=== PATIENT | female | born 1965 | race Caucasian/White ===

== ENCOUNTER 2020-08-29 10:16 | Outpatient (REF) | payer OTHER, SELFPAY ==
[2020-08-29 11:00] LABS: MANUAL DIFF FLAG NO
[2020-08-29 11:07] LABS: Basophils Percent Auto 0.4 % (0-2); Eosinophils Absolute Auto 0.2 X10*3/uL (0.0-0.4); Eosinophils Percent Auto 3.8 % (0-4); Hematocrit 41.7 % (37-47); Hemoglobin 13.5 g/dl (12.0-16.0); Imm Gran Abs Auto 0.01 X10*3/uL (0.00-0.03); Imm Gran Pct Auto 0.2 % (0.0-0.4); Lymphocytes Absolute Auto 2.1 X10*3/uL (1.2-4.9); Lymphocytes Percent Auto 40.9 % (20-40); Mean Corpuscular HGB Conc 32.4 g/dl (31.0-35.0); Mean Corpuscular Hemoglobin 28.8 pg (27.0-33.0); Mean Corpuscular Volume 88.9 fL (80-98); Mean Platelet Volume 11.1 fL (9.4-12.3); Monocytes Absolute Auto 0.5 X10*3/uL (0.1-1.2); Neutrophils Absolute Auto 2.4 X10*3/uL (2.0-8.3); Neutrophils Percent Auto 45.7 % (45-73); Platelet Count 268 X10*3/uL (160-400); Red Blood Count 4.69 X10*6/uL (4.20-5.50); Red Cell Distribution Width 14.2 % (11.0-16.0); White Blood Count 5.2 X10*3/uL (4.8-10.8)
[2020-08-29 11:52] LABS: Erythrocyte Sedimentation Rate 6 MM/HR (0-20)
[2020-08-29 11:53] LABS: Alanine Aminotransferase 24 U/L (0-31); Albumin Level 4.2 g/dL (3.5-5.0); Alkaline Phosphatase 78 U/L (39-117); Anion Gap 11 (12-20); Aspartate Amino Transferase 20 U/L (5-31); Bilirubin Total 0.4 mg/dL (0.0-1.0); Blood Urea Nitrogen 19 mg/dL (9-16); C Reactive Protein 0.27 mg/dL (< or = 0.50); Calcium 9.3 mg/dL (8.4-10.2); Carbon Dioxide 28 mmol/L (22-29); Chloride 105 mmol/L (96-108); Estimated Glomerular Filt Rate > 60; Glucose Random 95 mg/dL (60-115); Potassium 4.1 mmol/l (3.3-5.1); Sodium 140 mmol/L (135-145); Total Protein 6.8 g/dL (6.5-8.0)
== END 2020-08-29 10:17 | disposition home or self-care (01) ==
LOC: HO.LAB 10:16
PROVIDERS: PCP Internal Medicine; Visit Provider Student in an Organized Health Care Education/Training Program
DX: R76.8 Other specified abnormal immunological findings in serum (principal); M19.012 Primary osteoarthritis, left shoulder
CPT/HCPCS: 36415; 80053; 85025; 85652; 86140

== ENCOUNTER → 2020-08-30 08:57 | Outpatient (BNVA) | payer OTHER, SELFPAY | PROVIDERS: PCP Internal Medicine; Visit Provider Student in an Organized Health Care Education/Training Program | DX: Z76.89 Persons encountering health services in other specified circumstances (principal) ==

== ENCOUNTER 2023-05-10 09:06 | Outpatient (REF) | payer MEDICARE, SELFPAY ==
--- NOTE | ~2023-05-10 | XR_ITS ---
EXAMINATION: XR PELVIS CLINICAL INFORMATION: Hip pain. COMPARISON: November 11, 2017. TECHNIQUE: AP view of the pelvis. XR/XR pelvis 1-2V FINDINGS/IMPRESSION: There has been no significant radiographic change compared November 11, 2017. The patient is status post bilateral hip arthroplasty. There is no evidence of hardware fracture or loosening. No bony fracture is seen. No lytic or sclerotic bony lesion is identified. Soft tissues appear unremarkable. There are degenerative changes of the partially imaged lower lumbar spine.
--- NOTE | ~2023-05-10 | XR_ITS ---
EXAMINATION: XR KNEE AP STANDING XR KNEE, LEFT CLINICAL INFORMATION: Pain. COMPARISON: February 17, 2018. TECHNIQUE: AP bilateral standing view of the knees was obtained. Three views of the left knee. FINDINGS: The patient is status post left total knee arthroplasty, unchanged. There is no evidence of hardware fracture or loosening. No acute bony fracture or dislocation is seen. No suprapatellar effusion is noted. No lytic or sclerotic bony lesion is seen. There has been no significant radiographic change compared with February 17, 2018. The right knee appears grossly unremarkable on the single, frontal view submitted.. XR/XR knee LT 2V IMPRESSION: No significant radiographic change compared with February 17, 2018.
--- NOTE | ~2023-05-10 | XR_ITS ---
EXAMINATION: XR KNEE AP STANDING XR KNEE, LEFT CLINICAL INFORMATION: Pain. COMPARISON: February 17, 2018. TECHNIQUE: AP bilateral standing view of the knees was obtained. Three views of the left knee. FINDINGS: The patient is status post left total knee arthroplasty, unchanged. There is no evidence of hardware fracture or loosening. No acute bony fracture or dislocation is seen. No suprapatellar effusion is noted. No lytic or sclerotic bony lesion is seen. There has been no significant radiographic change compared with February 17, 2018. The right knee appears grossly unremarkable on the single, frontal view submitted.. XR/XR knee standing BI IMPRESSION: No significant radiographic change compared with February 17, 2018.
== END 2023-05-10 09:07 | disposition home or self-care (01) ==
LOC: HO.HOSX 09:06
PROVIDERS: Visit Provider Physician Assistant
DX: M76.891 Other specified enthesopathies of right lower limb, excluding foot (principal); Q66.6 Other congenital valgus deformities of feet; M25.762 Osteophyte, left knee; Z96.643 Presence of artificial hip joint, bilateral; Z96.652 Presence of left artificial knee joint
CPT/HCPCS: 72170; 73560; 73565; 99202

== ENCOUNTER 2024-11-10 08:44 | Outpatient (AMB) | payer MEDICARE, SELFPAY ==
--- NOTE | 2024-11-10 08:55 | MHC.OFFVIS ---
Vital Signs 11/10/24 08:57 Height 5 ft 2 in Weight 196 lb BMI 35.8 BP 132/72 Blood Pressure Location Lt brachial Position Sitting Pulse 76 Pulse Source Pulse Oximeter Pulse Oximetry (%) 96 Oxygen Delivery Method Room Air Intake Visit Reasons: RA Intake Note: Patient presents for follow up on RA today. Allergies No Known Allergies [No Known Allergies*] Allergy (Verified 11/10/24 08:58) HPI HPI RA: Details: History of rheumatoid arthritis. She had surgery to her left foot with stabilizers placed. She is doing well. Two week follow-up photos reviewed of foot without any signs of infection. She is nonweightbearing at this time. In day she has another follow-up with surgeon. RA is better controlled with the addition of leflunomide. She is able to put her rings on. Since being off of methotrexate for the last 2 weeks, loose stools has reduced. She was started on dicyclomine by PCP for diarrhea but has to take it 4 times a day. [facility] Surgical History Bariatric surgery status Carpal tunnel syndrome of left wrist Carpal tunnel syndrome of right wrist H/O bilateral hip replacements History of arthroscopy of left knee History of knee replacement procedure of left knee History of spinal fusion Social History (Updated 05/10/23 @ 08:12 by Cande Gurrola) Alcohol intake: current Alcohol intake frequency: a few times a week Alcohol type: hard liquor Patient Tobacco Use Status: Never used Tobacco Current occupational status: disabled Review of Systems Const All systems reviewed & are unremarkable except as noted in HPI and below Physical Exam Vital Signs: Last Vital Signs Pulse 76 11/10/24 08:57 BP 132/72 11/10/24 08:57 Pulse Ox 96 11/10/24 08:57 Oxygen Delivery Method Room Air 11/10/24 08:57 BMI result Body Mass Index 35.8 Const Other: General: Comfortable CVS: RRR Respiratory: clear to auscultation bilaterally. Good respiratory effort Skin: No lesions seen MSK: No tenderness of any joints. No synovitis. Good range of motion of upper extremity. Left foot is in a cast. She uses a scooter to ambulate. Assessment & Plan Assessment & Plan (1) Rheumatoid arthritis: Comment: Seropositive. Controlled on current regimen. Methotrexate is likely contributing to loose stools. We discussed switching methotrexate PO2 subcutaneous injection. Patient will like to think about it. Based on the photo that I side patient's 2 week follow-up post surgery, there is no signs of infection. She may resume methotrexate. She will also discuss with her surgeon. I reviewed labs that she had done 10/16/2024. She had normal creatinine with mild transaminitis. I have asked her to have labs done this week. May need to adjust methotrexate dose after lab results are back. Code(s): M06.9 - Rheumatoid arthritis, unspecified Category: Medical Qualifiers: Rheumatoid arthritis location: multiple sites Rheumatoid factor presence: with rheumatoid factor Qualified Code(s): M05.79 - Rheumatoid arthritis with rheumatoid factor of multiple sites without organ or systems involvement Plan: Continue hydroxychloroquine 200 mg daily. OCT and visual field eye exam 10/14/2025 up-to-date Continue leflunomide 20 mg daily Labs for disease and drug monitoring ordered May need to adjust methotrexate dose after lab results are back. She was previously on methotrexate 20 mg once weekly and folic acid 1 mg daily Liver ultrasound scheduled for 11/30/2024 ordered by PCP. Return to clinic in 3 months [facility] Requesting complete metabolic panel on 10/16/2024 from [facility] (2) Other supervisor fishing (current) drug therapy: Code(s): Z79.899 - Other supervisor fishing (current) drug therapy Category: Medical Plan: See above Orders: Orders Alanine Aminotransferase Today Z79.60 - [facility] (current) use of unspecified immunomodulators and immunosuppressants Erythrocyte Sedimentation Rate Today M06.9 - Rheumatoid arthritis, unspecified T Spot TB Today M06.9 - Rheumatoid arthritis, unspecified Complete Blood Count Auto Diff Today Z79.60 - correction officer supervisor (current) use of unspecified immunomodulators and immunosuppressants Creatinine Today Z79.60 - correction officer supervisor (current) use of unspecified immunomodulators and immunosuppressants Aspartate Amino Transferase Today Z79.60 - correction officer supervisor (current) use of unspecified immunomodulators and immunosuppressants C Reactive Protein Today M06.9 - Rheumatoid arthritis, unspecified Hepatitis B,C Profile Today M06.9 - Rheumatoid arthritis, unspecified Coding Level of Care Code Est Pt Level 4 (41974) Complex EM visit Add On G2211 Diagnoses Rheumatoid arthritis involving multiple sites with positive rheumatoid factor M05.79 Rheumatoid arthritis location: multiple sites Rheumatoid factor presence: with rheumatoid factor Other supervisor fishing (current) drug therapy Z79.899
[2024-11-10 08:57] VITALS: BP 132/72; PULSE 76; O2SAT 96; BMI 35.8
== END 2024-11-10 09:51 | disposition home or self-care (01) ==
PROVIDERS: PCP Family Medicine; Visit Provider Internal Medicine Rheumatology
DX: M05.79 Rheumatoid arthritis with rheumatoid factor of multiple sites without organ or systems involvement (principal); Z79.899 Other long term (current) drug therapy
CPT/HCPCS: 99214; G2211

== ENCOUNTER → 2024-11-10 08:44 | Outpatient (BNVA) | payer MEDICARE, SELFPAY | PROVIDERS: PCP Family Medicine; Visit Provider Internal Medicine Rheumatology | DX: M05.79 Rheumatoid arthritis with rheumatoid factor of multiple sites without organ or systems involvement (principal); Z79.899 Other long term (current) drug therapy | CPT/HCPCS: 99212 ==

== ENCOUNTER 2024-11-13 10:58 | Outpatient (REF) | payer MEDICARE, SELFPAY ==
[2024-11-13 11:12] LABS: MANUAL DIFF FLAG NO
[2024-11-13 12:23] LABS: Basophils Absolute Auto 0.1 X10*3/uL (0.0-0.2); Basophils Percent Auto 0.9 % (0-2); Eosinophils Absolute Auto 0.2 X10*3/uL (0.0-0.4); Eosinophils Percent Auto 3.9 % (0-4); Hematocrit 41.3 % (37.0-47.0); Hemoglobin 13.3 g/dl (12.0-16.0); Imm Gran Abs Auto 0.01 X10*3/uL (0.00-0.03); Imm Gran Pct Auto 0.2 % (0.0-0.4); Lymphocytes Absolute Auto 1.9 X10*3/uL (1.2-4.9); Lymphocytes Percent Auto 35.2 % (20-40); Mean Corpuscular HGB Conc 32.2 g/dl (31.0-35.0); Mean Corpuscular Hemoglobin 28.1 pg (27.0-33.0); Mean Corpuscular Volume 87.1 fL (80.0-98.0); Mean Platelet Volume 11.9 fL (9.4-12.3); Monocytes Absolute Auto 0.6 X10*3/uL (0.1-1.2); Monocytes Percent Auto 10.8 % (2-11); Neutrophils Absolute Auto 2.6 x10*3/uL (2.0-8.3); Platelet Count 253 X10*3/uL (160-400); Red Blood Count 4.74 X10*6/uL (4.20-5.50); Red Cell Distribution Width 14.6 % (11.0-16.0); White Blood Count 5.4 X10*3/uL (4.8-10.8)
[2024-11-13 13:00] LABS: Erythrocyte Sedimentation Rate 3 MM/HR (0-20)
[2024-11-13 13:16] LABS: Aspartate Amino Transferase 25 U/L (5-31); Estimated Glomerular Filt Rate > 60
[2024-11-13 13:29] LABS: Alanine Aminotransferase 33 U/L (0-31)
[2024-11-14 04:48] LABS: HBS Num1 1.13 mIU/mL (0-7.99); HBsAGNum1 0.37 S/CO (0.00-0.99); Hepatitis B Core Antibody Nonreactive (Nonreactive); Hepatitis B Surface Antigen Negative (Negative); ~HepC Num1 0.14 S/CO (0.00-0.79); ~Hepatitis B Surface Antibody NONREACTIVE (Nonreactive); ~Hepatitis C Antibody Nonreactive (Nonreactive)
[2024-11-16 13:12] LABS: TS Negative Control Passed; TS Panel A 0; TS Panel B 0; TS Positive Control Passed; TSpotTB Negative (Negative)
== END 2024-11-13 10:59 | disposition home or self-care (01) ==
LOC: HO.LAB 10:58
PROVIDERS: PCP Family Medicine; Visit Provider Internal Medicine Rheumatology
DX: M06.9 Rheumatoid arthritis, unspecified (principal); Z79.60 Long term (current) use of unspecified immunomodulators and immunosuppressants
CPT/HCPCS: 36415; 82565; 84450; 84460; 85025; 85652; 86140; 86481; 86704; 86706; 86803; 87340

== ENCOUNTER 2024-12-17 16:14 | Outpatient (REF) | payer MEDICARE, SELFPAY ==
[2024-12-17 17:38] LABS: Alanine Aminotransferase 29 U/L (0-31); Aspartate Amino Transferase 27 U/L (5-31)
--- OUTSIDE RECORDS SUMMARY | 2024-12-17 18:55 | XMS_ITS | Continuity of Care Document ---
Author Organization [place] - [facility] [place] [facility] [address] Floor Address [address] [place] [address] Care Team Providers Care Special Delivery Clerk Name Role Phone NENA RODRIGUEZ Primary Care Provider [phone] Assessment Encounter Date Assessment Date Assessment LastModified by Organization Details LastModified Time 12/04/2024 12/04/2024 CHIEF COMPLAINT: Postop left foot HISTORY OF PRESENT ILLNESS: Delia is a very pleasant 59-year-old woman who is 6 weeks status post left first and second TMT realignment arthrodeses and calcaneal bone graft augmentation for treatment of midfoot arthritis, cavus foot deformity and metatarsus adductus. She is doing very well and has no pain. She reports some mild numbness about her forefoot that has been improving since the surgery. She has been nonweightbearing in a short-leg cast. She denies any fevers, chills or paresthesias. She is happy with her progress thus far. Past family, medical, social history and review of systems has been reviewed and is located in the patient? s chart. PHYSICAL EXAM: Musculoskeletal: With cast removed, her incisions are well-healed. Steri-Strips were removed. There is mild swelling without infectious change. There is no tenderness about her first and second TMT joints. There is mildly decreased sensation about the dorsal forefoot distal to her dorsal midfoot incision. She is otherwise distally neurovascularly intact. Her TMT joints are stable and there is no pain with TMT piano blue testing. X-RAYS: Three standing views of the left foot were ordered, obtained and reviewed by me today at [facility], demonstrating interval healing of her first and second TMT arthrodeses with well aligned midfoot and well-positioned intact hardware. IMPRESSION: 6 weeks postop, doing well PLAN: She is doing very well at this time. She is transitioned today to a tall CAM boot in which she may begin to weight-bear as tolerated. I would like her to wear the boot when walking for the next 6 weeks. She may remove the boot for sleep, hygiene and to work on range of motion of her ankle, hindfoot and MTP joint. She measured this into a supportive shoe in 6 weeks. She will follow-up in 8 weeks for reevaluation and repeat x-rays to assess alignment and healing. All questions were answered. She understands and agrees with this plan. The patient is ambulatory, but has weakness and/or instability of their extremity which requires stabilization from this semi-rigid/rigid orthosis to improve their function. Verbal and written instructions for the use and application of this item were given. Patient was instructed that should the brace result in increased pain, decreased sensation, increased swelling or an overall worsening of their medical condition, to please contact our office immediately. Not available 12/04/2024 10:37:02 Plan of Treatment Reminders Order Date Submit Date Provider Last Modified By Organization Details Last Modified Time Details Appointments RECHECK 15 2024 10:30A M Regine Bernal PA-C Not available Not available Not available Lab None recorded . Referral None recorded . Procedures None recorded . Surgeries None recorded . Imaging XR, foot, 3 or more view - RM 109 -- post op 3V FOOT WB-- pt in cast room [address] [facility], [address], [facility] [address], [place], [address], 12/16/2024 08:20:06 Medication Orders None recorded . Patient TargetsNo targets recorded. Patient Instructions Encounter Date Encounter Id Patient Instructions Last Modified By Organization Details Last Modified Time 12/04/[id number] cast removal* - rm 109-- cast off then xray Not available 12/04/2024 10:45:06 Reason for Referral None Reported. Results Created Date Observation Date Name Description Value Unit Range Abnormal Flag Note LastModifiedBy Organization Detail LastModifiedTime 12/04/19 25 12/04/2024 XR, foot, 3 or more view [email or web address] ?Encry pted=s hAaTro YD8dLq bEUv6g %2BXZw aYqtaq 0bqfl% 2Fg9IQ a4ajBk vP9nXo QUaueC m3YtLR FvZlgJ JJ8mAn HZtai3 [id number] AC0Kqb 3%2BAU qqmKiQ trMwF INTERFACE [facility] [address], [place], [address], 12/04/2024 10:15:03 12/04/19 25 12/04/2024 XR, foot, 3 or more view [email or web address]:/ [email or web address] ?Encry pted=s hAaTro YD8dLq bEUv6g %2BXZw aYqtaq 0bqfl% 2Fg9IQ a4ajBk vP9nXo QUaueC m3YtLR FvZl [place] HZtai3 [id number] AC0Kqb 3%2BAU qqmKiQ trMwF INTERFACE [facility] [address] [facility] [address], [place], [address], 12/04/2024 10:15:05 Result Notes None recorded. Problems Name Problem SNOMED Code Status Onset Date Resolution Date Notes Provider Name and Address Organization Details Recorded Time Localized, primary osteoarthriti s of the shoulder region [id number] Active 2020 Status : 'A'; Not Available [facility] 4 10:55:09 Problem Notes None recorded. Procedures Surgical History Date Name Laterality Status Provider Name and Address Organization Details Recorded Time 4 Cast_Short Leg_11+ completed [facility] 11/16/2024 13:50:13 4 Cast Removal completed [facility] 11/16/2024 13:48:54 Imaging Results None recorded. Procedure Notes None recorded. Medical Equipment None Reported. Allergies No known drug allergies Medications Name Sig Start Date Stop Date Status Note LastModified by Organization Details LastModified Time Ecotrin 325 mg tablet,ente yi coated Take 1 tablet every day by oral route for 30 days. 12/04 completed Not Available Not Available Not Available Tylenol Extra Strength 500 mg tablet Take 2 tablets every 8 hours by oral route for 15 days. 12/04 completed Not Available Not Available Not Available oxycodone 5 mg tablet Take 1 tablet every 4-6 hours by oral route as needed for 5 days. 12/04 completed Not Available Not Available Not Available methotrexat e active Not Available Not Available Not Available hydrochloro thiazide active Not Available Not Available Not Available hydroxychlo roquine active Not Available Not Available Not Available gabapentin active Not Available Not Av ailable Not Available leflunomide active Not Available Not A vailable Not Available Celebrex active Not Available Not Avai lable Not Available oxycodone HCl-oxycodo ne-ASA three times a dayDO NOT DRIVE WHILE TAKING THIS MEDICATIO N 12/04 completed Statu s: 'Curr ent'; Not Available Not Available Not Available Vitamin D3 125 mcg (5,000 unit) tablet Take 1 tablet every day by oral route for 30 days. 12/04 completed Not Available Not Available Not Available Vitals Date Recorded Body height Body mass index (BMI) Body weight Provider Name and Address Organization Details Last Updated DateTime 12/04/2024 157.48 cm 36.2 kg/m2 80852.29 g KECIA Tomas [place] - [place] [facility] 12/04/2024 10:01:55 Social History None recorded. Functional Status None recorded. Mental Status None recorded. Family History Nothing Reported. Medical History Condition Response Nerve Disorders Y Kidney/Bladder Problems Y Arthritis Y Hypertension Y Gynecological HistoryNo gynecological history recorded. Obstetrics History GPAL:G 0 P 0 0 0 0 Past Encounters Encounter ID Performer Location Encounter Start Date Encounter Closed Date Diagnosis/Indication Diagnosis SNOMED-CT Code Diagnosis ICD10 Code Diagnosis Note [id number] JAYLENE Braun [address] [place] [address] 11/05/2024 10:41:14 11/26/2024 17:40:16 Postoperative visit [id number] Z48.89 [id number] MD [facility] B[facility]re[facility] 1[address] [place] [address] 11/16/2024 13:19:34 11/16/2024 13:51:19 Surgical follow-up [id number] Z48.89 [id number] Ramy Alfonso MD [place] [facility] [address] [place] [address] 12/04/2024 09:48:12 12/16/2024 08:20:06 Pain in left foot 6257245943 35501 M79.672 Postoperative visit 1836 87321 Z48.89 Health Concerns Section Related Observation LastModified by Organization Detai ls LastModified Time None Recorded Concern Status LastModified by Organization Details LastModified Time None Recorded Payers Encounter Date Sequence Insurance Name Policy Number Policy [place] Covered Member ID [employer] Member ID Guarantor Name 12/04/2024 1 [place] [employer] Delia Baldwin [id number] Delia Baldwin OBGyn Episode No OBEpisode recorded.
== END 2024-12-17 16:15 | disposition home or self-care (01) ==
LOC: HO.LAB 16:14
PROVIDERS: PCP Family Medicine; Visit Provider Internal Medicine Rheumatology
DX: Z79.899 Other long term (current) drug therapy (principal)
CPT/HCPCS: 36415; 84450; 84460

== ENCOUNTER 2025-02-09 09:17 | Outpatient (REF) | payer MEDICARE, SELFPAY ==
[2025-02-09 18:46] LABS: MANUAL DIFF FLAG NO
[2025-02-09 19:09] LABS: Basophils Absolute Auto 0.1 X10*3/uL (0.0-0.2); Basophils Percent Auto 1.1 % (0-2); Eosinophils Absolute Auto 0.1 X10*3/uL (0.0-0.4); Hematocrit 43.3 % (37.0-47.0); Hemoglobin 13.9 g/dl (12.0-16.0); Imm Gran Abs Auto 0.01 X10*3/uL (0.00-0.03); Imm Gran Pct Auto 0.2 % (0.0-0.4); Lymphocytes Absolute Auto 1.8 X10*3/uL (1.2-4.9); Lymphocytes Percent Auto 37.4 % (20-40); Mean Corpuscular HGB Conc 32.1 g/dl (31.0-35.0); Mean Corpuscular Volume 87.3 fL (80.0-98.0); Mean Platelet Volume 11.3 fL (9.4-12.3); Monocytes Absolute Auto 0.5 X10*3/uL (0.1-1.2); Neutrophils Absolute Auto 2.3 x10*3/uL (2.0-8.3); Neutrophils Percent Auto 48.3 % (45-73); Platelet Count 274 X10*3/uL (160-400); Red Blood Count 4.96 X10*6/uL (4.20-5.50); Red Cell Distribution Width 15.4 % (11.0-16.0); White Blood Count 4.7 X10*3/uL (4.8-10.8)
[2025-02-09 19:17] LABS: Alanine Aminotransferase 27 U/L (0-31); Aspartate Amino Transferase 29 U/L (5-31); C Reactive Protein 0.18 mg/dL (< or = 0.50); Estimated Glomerular Filt Rate > 60
[2025-02-09 19:58] LABS: Erythrocyte Sedimentation Rate 3 MM/HR (0-20)
== END 2025-02-09 09:18 | disposition home or self-care (01) ==
LOC: HO.HKASLDS 09:17
PROVIDERS: Visit Provider Internal Medicine Rheumatology
DX: M05.9 Rheumatoid arthritis with rheumatoid factor, unspecified (principal); Z79.60 Long term (current) use of unspecified immunomodulators and immunosuppressants; Z79.899 Other long term (current) drug therapy
CPT/HCPCS: 36415; 82565; 84450; 84460; 85025; 85652; 86140

== ENCOUNTER 2025-02-11 09:41 | Outpatient (AMB) | payer MEDICARE, SELFPAY ==
--- NOTE | 2025-02-04 12:21 | A.OFFVIS_ITS ---
Intake Visit Reasons: 3 mo follow up Allergies No Known Allergies [No Known Allergies*] Allergy (Verified 11/10/24 08:58) HPI HPI 3 mo follow up: Details: Patient was not seen today. NO appointment today. Document created in error. [facility] Surgical History Bariatric surgery status Carpal tunnel syndrome of left wrist Carpal tunnel syndrome of right wrist H/O bilateral hip replacements History of arthroscopy of left knee History of knee replacement procedure of left knee History of spinal fusion Social History (Updated 05/10/23 @ 08:12 by Cande Gurrola) Alcohol intake: current Alcohol intake frequency: a few times a week Alcohol type: hard liquor Patient Tobacco Use Status: Never used Tobacco Current occupational status: disabled Assessment & Plan Assessment & Plan (1) Other penitentiary (current) drug therapy: Code(s): Z79.899 - Other emergency management program specialist (current) drug therapy Category: Medical Plan . Coding Level of Care Code Left Without Being Seen Diagnoses Other penitentiary (current) drug therapy Z79.899
--- NOTE | 2025-02-11 10:00 | A.OFFVIS_ITS ---
Vital Signs 02/11/25 10:02 Height 5 ft 2 in Weight 189 lb 9.561 oz BMI 34.7 BP 130/80 Blood Pressure Location Rt brachial Position Sitting Intake Visit Reasons: 3 mo follow up Intake Note: Patient presents for follow up on labs. Allergies No Known Allergies [No Known Allergies*] Allergy (Verified 02/11/25 10:03) HPI HPI 3 mo follow up: Details: She feels well. Her right hand was swollen recently, resolved. She has been experiencing increased pain and weakness in her right knee that occurred 2 days after surgery on her left foot when she walked up and downstairs to go to in an appointment. She will be seeing orthopedic surgeon Dr. Anand for eval. No recent infections. [facility] Medical History (Updated 02/11/25 @ 10:35 by Antonino Linn MD) History of reverse total replacement of both shoulders Surgical History (Updated 02/11/25 @ 10:09 by Oriana Mills [facility]) S/P foot surgery, left H/O bilateral hip replacements History of knee replacement procedure of left knee Bariatric surgery status History of spinal fusion Carpal tunnel syndrome of right wrist Carpal tunnel syndrome of left wrist History of arthroscopy of left knee Social History (Updated 05/10/23 @ 08:12 by Cande Gurrola) Alcohol intake: current Alcohol intake frequency: a few times a week Alcohol type: hard liquor Patient Tobacco Use Status: Never used Tobacco Current occupational status: disabled Review of Systems Const All systems reviewed & are unremarkable except as noted in HPI and below Physical Exam Vital Signs: Last Vital Signs BP 130/80 02/11/25 10:02 BMI result Body Mass Index 34.7 Const Other: General: Comfortable CVS: RRR Respiratory: clear to auscultation bilaterally. Good respiratory effort Skin: No lesions seen MSK: No tenderness of any joints. Left 2nd MCP chronic synovial thickening present without tenderness. Shoulder abduction 160 degrees bilateral. Good internal external rotation of bilateral shoulders. Normal range of motion of elbows. Normal range of motion of lower extremities. Assessment & Plan Assessment & Plan (1) Rheumatoid arthritis: Comment: Controlled on current regimen. She has slight synovial thickening left 2nd MCP, which I will monitor. She had mild transaminitis on blood work from September and 11/13/2024. Resolved with lower dose of methotrexate. Rheumatology history: Seropositive (RF 19). MTX 09/2022-. She has been on HCQ. Methotrexate is contributing to loose stools but tolerable. Code(s): M06.9 - Rheumatoid arthritis, unspecified Category: Medical Qualifiers: Rheumatoid arthritis location: multiple sites Rheumatoid factor presence: with rheumatoid factor Qualified Code(s): M05.79 - Rheumatoid arthritis with rheumatoid factor of multiple sites without organ or systems involvement Plan: Continue hydroxychloroquine 400 mg daily. OCT and visual field eye exam 10/14/2025 up-to-date Continue leflunomide 20 mg daily Continue methotrexate 17.5 mg once weekly Continue folic acid 1 mg daily Requesting liver ultrasound report from 12/14/2024 Return to clinic in 3 months (2) Other terminal system operator (current) drug therapy: Code(s): Z79.899 - Other terminal system operator (current) drug therapy Category: Medical Plan: See above Orders: Orders Alanine Aminotransferase 02/09/25 Z79.60 - terminal worker (current) use of uns pecified immunomodulators and immunosuppressants Aspartate Amino Transferase 02/09/25 Z79.60 - retirement (current) use of unspecified immunomodulators and immunosuppressants Erythrocyte Sedimentation Rate 02/09/25 M05.9 - Rheumatoid arthritis with rheumatoid factor, unspecified, Z79.899 - Other terminal system operator (current) drug therapy C Reactive Protein 02/09/25 M05.9 - Rheumatoid arthritis with rheumatoid factor, unspecified, Z79.899 - Other penitentiary (current) drug therapy Complete Blood Count Auto Diff 02/09/25 Z79.60 - retirement (current) use of unspecified immunomodulators and immunosuppressants Creatinine 02/09/25 Z79.60 - terminal worker (current) use of unspecified immunomodulators and immunosuppressants Medications: Changed From leflunomide 20 mg PO DAILY 30 tabs 2RF To leflunomide 20 mg PO DAILY 90 days 90 tabs 0RF From methotrexate sodium 17.5 mg (7 x 2.5 mg) PO QWEEK 28 tabs 2RF To methotrexate sodium 17.5 mg (7 x 2.5 mg) PO QWEEK 12 weeks 84 tabs 0RF From hydroxychloroquine 200 mg PO DAILY To hydroxychloroquine 400 mg (2 x 200 mg) PO DAILY 90 days 180 tabs 1RF Coding Level of Care Code Est Pt Level 4 (41737) Complex EM visit Add On G2211 Diagnoses Rheumatoid arthritis involving multiple sites with positive rheumatoid factor M05.79 Rheumatoid arthritis location: multiple sites Rheumatoid factor presence: with rheumatoid factor Other terminal system operator (current) drug therapy Z79.899
[2025-02-11 10:02] VITALS: BP 130/80; BMI 34.7
== END 2025-02-11 10:32 | disposition home or self-care (01) ==
LOC: HO.RHES 09:41
PROVIDERS: PCP Family Medicine; Visit Provider Internal Medicine Rheumatology
DX: M05.79 Rheumatoid arthritis with rheumatoid factor of multiple sites without organ or systems involvement (principal); Z79.899 Other long term (current) drug therapy
CPT/HCPCS: 99214; G2211

== ENCOUNTER → 2025-02-11 09:41 | Outpatient (BNVA) | payer MEDICARE, SELFPAY | PROVIDERS: PCP Family Medicine; Visit Provider Internal Medicine Rheumatology | DX: M05.79 Rheumatoid arthritis with rheumatoid factor of multiple sites without organ or systems involvement (principal); Z79.899 Other long term (current) drug therapy; Z79.60 Long term (current) use of unspecified immunomodulators and immunosuppressants | CPT/HCPCS: 99212 ==

== ENCOUNTER 2025-02-15 08:26 | Outpatient (REF) | payer MEDICARE, SELFPAY ==
--- NOTE | ~2025-02-15 | XR_ITS ---
CLINICAL HISTORY: M25.569 - Pain in unspecified knee Two views of the right knee. AP views of the bilateral knees. Weight bearing views were obtained. COMPARISON: None FINDINGS: Right knee: Small suprapatellar joint effusion. Small tricompartment osteophytes. Mild medial joint space narrowing. Visualized portions of the distal right femur, patella, and proximal tibia and fibula appear intact. Fabella present. Limited AP view of the left knee: Left total knee arthroplasty partially visualized. No evidence of hardware complication. Visualized portions of the distal left femur and proximal tibia and fibula appear intact. IMPRESSION: 1. Small right suprapatellar joint effusion. 2. Mild tricompartment degenerative changes of the right knee. This document has been electronically signed by: Je Deleon MD on 02/16/2025 15:49:54
== END 2025-02-15 08:27 | disposition home or self-care (01) ==
LOC: HO.HOSX 08:26
PROVIDERS: Visit Provider Physician Assistant
DX: M25.561 Pain in right knee (principal); M23.91 Unspecified internal derangement of right knee
CPT/HCPCS: 20610; 73562; 99212; J1010; J2003

== ENCOUNTER 2025-02-15 10:19 | Outpatient (AMB) | payer MEDICARE, SELFPAY ==
--- NOTE | 2025-02-15 10:54 | A.OFFVIS_ITS ---
Vital Signs 02/15/25 10:59 Height 5 ft 2 in Weight 189 lb BMI 34.6 Intake Visit Reasons: Newprob-RT knee pain-interested in cortisone inj. Intake Note: Delia is a 59 year old female who presents today for a evaluation of her right knee pain. Patient reports on going pain for a couple months. Hx of left TKA. She states that she twisted her knee 4 - 5 months ago. Hx of cortisone injection with relief. Patient states her pain is on the lateral and medial aspect of the knee. She has tried and failed Tylenol, NSIADs and Ice with no relief. Patient is interested in a knee injection. Allergies No Known Allergies [No Known Allergies*] Allergy (Verified 02/15/25 10:57) HPI HPI Newprob-RT knee pain-interested in cortisone inj.: Details: Ms. Baldwin is a 59-year-old female who presents to the office today for evaluation of right knee pain. Reports that her knee pain has been lasting the past 4-5 months after she twisted and is gradually getting worse. She reports that the majority of her pain is located around the kneecap but deep seated within the joint. She has tried and failed Tylenol and ice with no relief. She is interested in cortisone injection today as this has provided her with relief in the past. [facility] Medical History (Updated 02/15/25 @ 11:42 by Feli Esteves PA-C) History of reverse total replacement of both shoulders Surgical History (Updated 02/11/25 @ 10:09 by Oriana Mills [facility]) S/P foot surgery, left H/O bilateral hip replacements History of knee replacement procedure of left knee Bariatric surgery status History of spinal fusion Carpal tunnel syndrome of right wrist Carpal tunnel syndrome of left wrist History of arthroscopy of left knee Social History Alcohol intake: current Alcohol intake frequency: a few times a week Alcohol type: hard liquor Patient Tobacco Use Status: Never used Tobacco Current occupational status: disabled Review of Systems Const All systems reviewed & are unremarkable except as noted in HPI and below Physical Exam Vital Signs: BMI result Body Mass Index 34.6 Const General: cooperative, healthy appearing and no acute distress Resp Effort & Inspection: normal respiratory effort and able to speak in complete sentences Cardio Rate: regular rate Peripheral pulses: Peripheral pulses 2+ throughout Skin Lesions: no lesions Rashes: no rashes Extrem Other: Right knee normal to inspection no ecchymosis erythema or joint effusion. Range of motion 0-120. NVI. Office Procedures AMB Joint Injection/Aspiration Joint Injection/Aspiration Primary Site: right knee Prep: site was prepped using aseptic technique, ethochloride spray was applied and injection warnings given Injected: 80 mg of, DepoMedrol and with 8 mL of (8cc 2% plain lido ) Approach Used: anterolateral Procedure: The patient tolerated the procedure well, but had some pain with the injection and there was some relief with the local anesthesia Coding - Large joint Procedure code (CPT) selection complete Assessment & Plan Assessment & Plan (1) Internal derangement of right knee: Code(s): M23.91 - Unspecified internal derangement of right knee Category: Medical Plan Ms. Baldwin is a 5-year-old female who presents to the office today for evaluation of right knee pain. Reports that her knee pain has been lasting the past 4-5 months after she twisted and is gradually getting worse. She reports that the majority of her pain is located around the kneecap but deep seated within the joint. She has tried and failed Tylenol and ice with no relief. She is interested in cortisone injection today as this has provided her with relief in the past. The patient was offered a cortisone injection in the right knee with 80 mg of DepoMedrol. The patient was explained the risks, benefits, and alternatives to receiving this injection. After receiving consent for the injection, the patient had the procedure done while in the office today. The patient tolerated the procedure well with no complications. Follow-up will be p.r.n., or sooner if needed X-rays of the right knee which were obtained while in the office today and were reviewed by me, Feli Esteves PA-C, revealed no acute fracture dislocation. Orders: Orders XR knee RT 3V Today M25.569 - Pain in unspecified knee XR knee LT 1V Today M25.569 - Pain in unspecified knee Coding Level of Care Code Est Pt Level 3 (20905) Diagnoses Internal derangement of right knee M23.91 CPT Codes Coding - Large joint: 78059 - Large joint ([id number])
[2025-02-15 10:59] VITALS: BMI 34.6
== END 2025-02-15 11:16 | disposition home or self-care (01) ==
LOC: HO.HOS 10:20
PROVIDERS: PCP Family Medicine; Visit Provider Physician Assistant
DX: M23.91 Unspecified internal derangement of right knee (principal)
CPT/HCPCS: 20610; 99213

== ENCOUNTER → 2025-02-15 10:30 | Outpatient (BNV) | payer MEDICARE, SELFPAY | PROVIDERS: Visit Provider Radiology Diagnostic Radiology | DX: M25.561 Pain in right knee (principal) | CPT/HCPCS: 73562 ==

== ENCOUNTER 2025-05-13 15:50 | Outpatient (REF) | payer MEDICARE, SELFPAY ==
--- OUTSIDE RECORDS SUMMARY | 2025-05-13 16:51 | XMS_ITS | Data Portability ---
Author Organization [facility], [facility] Address [address] [place] [address] Care Team Providers Care Stockroom Clerk Name Role Phone NENA RODRIGUEZ Primary Care Provider [phone] Assessment Encounter Date Assessment Date Assessment LastModified [...] been reviewed and is located in the patient s chart. PHYSICAL EXAM: Musculoskeletal: With cast [...] obtained and reviewed by me today at [facility], demonstrating interval healing of her first and [...] Modified Time Details Appointments RECHECK 15 2024 02:30P Flakito Bernal PA-C Not available Not available Not available Lab None recorded . Referral None recorded . Procedures None recorded . Surgeries None recorded . Imaging XR, foot, 3 or more view - rm# 104 3v lt foot wb 2024 025 [email or web address] [facility], [address], [address], [place], [address], 05/07/2025 12:23:14 CT, foot, w/o contrast - Left foot eval 1st and 2nd TMT fusions 2024 025 LAZARUS [facility], [address], [address], [place], [address], 05/09/2025 21:08:03 XR, foot, 3 or more view 2024 025 [email or web address] [facility], [address], [address], [place], [address], 02/08/2025 10:25:51 XR, foot, 3 or more view - RM 109 -- post op 3V FOOT WB-- pt in cast room 2024 025 [email or web address] [facility], [address] [facility] [address], [facility] [address], [address], 12/16/2024 08:20:06 Medication Orders compound ed medicati on 2024 025 [facility], [address] [place] [address], [address], [place], [address], 01/27/2025 13:11:21 Patient TargetsNo targets recorded. Patient Instructions Encounter Date Encounter Id Patient Instructions Last Modified By Organization Details Last Modified Time 12/04/[id number] cast removal* - rm 109-- cast off then xray Not available 12/04/2024 10:45:06 Reason for Referral None Reported. Results Created Date Observation Date Name Description Value Unit Range Abnormal Flag Note LastModifiedBy Organization Detail LastModifiedTime 12/04/1912/04/2024 XR, foot, 3 or more view http:/ [email or web address] ?Encry pted=s hAaTro YD8dLq bEUv6g %2BXZw aYqtaq 0bqfl% 2Fg9IQ a4ajBk vP9nXo QUaueC m3YtLR FvZlgJ JJ8mAn HZtai3 6d7283 AC0Kqb 3%2BAU qqmKiQ trMwF INTERFACE [facility] [address] [facility] [address], [place], [address], 12/04/2024 10:15:03 12/04/1912/04/2024 XR, foot, 3 or more view http:/ [email or web address] ?Encry pted=s hAaTro YD8dLq bEUv6g %2BXZw aYqtaq 0bqfl% 2Fg9IQ a4ajBk vP9nXo QUaueC m3YtLR FvZlgJ JJ8mAn HZtai3 6w6389 AC0Kqb 3%2BAU qqmKiQ trMwF INTERFACE [facility] [address] [address], [place], [address], 12/04/2024 10:15:05 01/27/20 25 01/26/2025 XR, foot, 3 or more view [email or web address]:/ [email or web address] ?Encry pted=s hAaTro YD8dLq bEUv6g %2BXZw aYqtaq 0bqfl% 2Fg9IQ a4ajBk vP9nXo QUaueC m3YtLR FvZlJ [address] 9p8149 AC0Kqb XqFVKS mKiQtr MwF INTERFACE [facility] [address], [address], 01/26/2025 11:07:07 01/27/20 25 01/26/2025 XR, foot, 3 or more view [email or web address]:/ [email or web address] ?Encry pted=s hAaTro YD8dLq bEUv6g %2BXZw aYqtaq 0bqfl% 2Fg9IQ a4ajBk vP9nXo QUaueC m3YtLR FvZlgJ [facility] HZtai3 2f8753 AC0Kqb XqFVKS mKiQtr MwF INTERFACE [facility] [address] [address], [place], [address], 01/26/2025 11:07:09 05/03/20 25 05/03/2025 XR, foot, 3 or more view http:/ [email or web address] ?Encry pted=s hAaTro YD8dLq bEUv6g %2BXZw aYqtaq 0bqfl% 2Fg9IQ a4ajBk vP9nXo QUaueC m3YtLR FvZlgJ JJBanner HZtai3 3d1373 AC0Kla HyBU6q iKiQtr MwF INTERFACE [facility] [address] [facility] [address], [place], [address], 05/03/2025 10:09:25 05/03/20 25 05/03/2025 XR, foot, 3 or more view http:/ [email or web address] ?Encry pted=s hAaTro YD8dLq bEUv6g %2BXZw aYqtaq 0bqfl% 2Fg9IQ a4ajBk vP9nXo QUaueC m3YtLR FvZlgJ JJ8mAn HZtai3 5e7150 AC0Kla HyBU6q iKiQtr MwF INTERFACE [facility] [address] [facility] [address], [place], [address], 05/03/2025 10:09:27 05/09/20 25 05/07/2025 CT, foot, w/o contr ast No observ ation record ed. [email or web address] [facility] [address] [facility] [address], [place], [address], 05/10/2025 07:28:27 Result Notes Documentation Provider Name and Address Organization Details Recorded Time Xr, Foot, 3 Or More View : [email or web address] Encrypted=ijUxZhnBD0xNgaE Uv6g%5WIKhpWukrm4yecc%2Fg 7ONs5kpFynK0jLyNQmtlQw7Qm SCHeScjUFK4tUiOBdmh28d882 7VT1Jce3%2BAUqqmKiQtrMwF Not Available [facility] 12/04/2024 10:1 5:04 Xr, Foot, 3 Or More View : [email or web address] Encrypted=rgFvHgwPF8oAozS Uv6g%0KNOwyOvddb7qsyi%2Fg 8KOv5ynAcdP1pOfWEzjvXv4Fk QKBiJejSIQ3lXvGLvhx13m142 5GF8Bev5%2BAUqqmKiQtrMwF Not Available [facility] 12/04/2024 10:1 5:06 Xr, Foot, 3 Or More View : [email or web address] Encrypted=evYzVtwPO6wDbrM Uv6g%4GEXilToqxu7slul%2Fg 5GCm0vjJvlH2hPtNOjlwKq4Ph VANeYxiARD4rLjWMeqe36y265 7NK5AsaIuAEPQiNrRtbJfF Not Available [facility] 01/26/2025 11:07: 08 Xr, Foot, 3 Or More View : [email or web address] Encrypted=twTwZenYS6oCmyZ Uv6g%4OMJkgSvzfo1ueki%2Fg 3WUk6noYuiN7nWxQWxxpNh9No QBUmNzyLJO0nTdFGywu22y500 8BR4VsxNjDULWiWdMtuIbQ Not Available [facility] 01/26/2025 11:07: 10 Xr, Foot, 3 Or More View : [email or web address] Encrypted=vmLmUtsED9iKifI Uv6g%5WOXglFtkeg8kxbd%2Fg 5YCu0tgPydX4xKgHEhguIg6Bu DHQxRzyQOW5vAdZYbfy97l589 8RQ2GxdEsJA6frErHtxSyB Not Available [facility] 05/03/2025 10:09: 25 Xr, Foot, 3 Or More View : [email or web address] 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 Procedures Surgical History Date Name Laterality Status Provider Name and Address Organization Details Recorded Time 4 Cast_Short Leg_11+ completed [facility] 11/16/2024 13:50:13 4 Cast Removal completed [facility] 11/16/2024 13:48:54 Imaging Results None recorded. Procedure Notes None recorded. Medical Equipment None Reported. Allergies No known drug allergies Medications Name Sig Start Date Stop Date Status Note LastModified by Organization Details LastModified Time compounded medication Apply 1-3 grams(pum ps) to the affected area 3-4 times daily 2024 active Not Available Not Available Not Avai lable Ecotrin 325 mg tablet,ente yi coated Take [...] Updated DateTime 12/04/2024 157.48 cm 36.2 kg/m2 47608.29 g KECIA Tomas [facility] 12/04/2024 10:01:55 Date Recorded Body height Body mass index (BMI) Body weight Provider Name and Address Organization Details Last Updated DateTime 01/26/2025 157.48 cm 36.2 kg/m2 33976.29 g NITISH AUGUST [facility] 01/26/2025 11:00:32 Date Recorded Body height Body mass index (BMI) Body weight Provider Name and Address Organization Details Last Updated DateTime 05/03/2025 157.48 cm 34 kg/m2 37215.18 g Dorene Valenzuela [facility] 05/03/2025 10:02:46 Date Recorded Body height Body temperature Body mass index (BMI) Body weight Provider Name and Address Organization Details Last Updated DateTime 11/05/2024 157.48 cm 98.5 [degF] 36.2 kg/m2 04462.29 g EUSEBIO BRANCH [facility] 11/05/2024 11:19:47 Social History None recorded. 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 839019709 M19.272 Acquired c avus deformity of foot 15196496 M21.6X2 [id number] Alcira Proctor PA-C [facility] [address] [place] [address] 11/05/2024 10:41:14 11/26/2024 17:40:16 Postoperative visit 812133347 Z48.89 [id number] Ramy Alfonso MD [facility] [address] [place] [address] 11/16/2024 13:19:34 11/16/2024 13:51:19 Surgical follow-up 313294028 Z48.89 [id number] Ramy Alfonso MD [facility] - [facility] [address] [place] [address] 12/04/2024 09:48:12 12/16/2024 08:20:06 Pain in left foot 8697548054 66179 M79.672 Postoperative visit 1836 97914 Z48.89 [id number] Regine Bernal PA-C [facility] [address] [place] [address] 01/26/2025 10:09:23 02/08/2025 10:25:51 Pain in left foot 8579994039 54890 M79.672 Left metat arsus adductus 7601558706 6515182 Q66.177 [id number] J[facility]LENE [facility] - [facility] [address] [place], [place] [address] 05/03/2025 09:13:38 05/07/2025 12:23:14 Ankle pain 914351086 M25.572 Pain in left foot 261743 4579 06983 M79.672 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 fusion or arthrodesis 170480179 M96.0 Left metat arsus adductus 0661855309 5069206 Q66.222 Health Concerns Section Related Observation LastModified by Organization Detai ls LastModified Time None Recorded Concern Status LastModified by Organization Details LastModified Time None Recorded Advance Directives Directive None Recorded Payers Insurance Date Sequence Insurance Name Policy Number Policy Acuna Covered Member ID Acuna Member ID Guarantor Name 05/01/2025 NORIDIAN - SPECIALITY CLAIMS (MEDICARE DME REGION A) Delia R Denny [id number] Delia R Denny 04/30/2025 1 MEDICARE B-[place]: [facility] [employer] Delia R Denny [id number] Delia R Denny Notes Date Note Type Note Provider Name and Address Organization Details Recorded Time 11/05/2024 text/html I am seeing the patient today under the supervision of Dr. Alfonso who was available but who did not see the patient. [id number] female with rheumatoid arthritis presents 2 weeks status post left first and second TMT arthrodesis with calcaneal bone graft. She is doing well and reports minimal pain. Has been compliant with weightbearing restrictions. Using a rollabout scooter. No complaints today. Past family, medical, social history and review of systems has been reviewed, updated and signed by me and is located in the patient's chart. Examination: The patient is well appearing, alert and oriented x3 and in no acute distress. Inspection of her left foot reveals nicely healing surgical incisions without signs of infection. Mild edema only. Range of motion is appropriately stiff. No dystrophic skin changes. Neurovascularly intact distally. Calf is supple and non-tender. Skin is without lesions. Impression/Plan: Postop, stable. Sutures removed today and steris placed. Elevation encouraged. Patient transitioned into well-padded short leg nonweightbearing cast with a full footplate._Follow-up arranged. Patient instructed to remain nonweightbearing until follow-up in [address] Alfonso. [facility] speech recognition court collections officer software was used to create portions of this document. An attempt at proofreading has been made to minimize errors. Please call for corrections. Alcira Proctor PA-C [address], [place], [address], [facility] 11/05/2024 11:41:24 01/26/2025 text/html I am seeing this patient under the supervision of Dr. Alfonso, who was available but who did not see the patient. HPI: Patient is a 59 year old female presenting today about 3 months status post left first and second realignment arthrodeses and calcaneal bone graft augmentation. SHe has been doing well since last seen. She has been ambulating in a CAM boot. Does not have much pain today. She continues to complain of some swelling in the foot. Continues to have some nerve symptoms. Denies any interval trauma. Denies any fevers, chills, or paresthesias. PFMSH, Meds and ROS reviewed, updated and signed by me, and is located in the patient's chart. PHYSICAL EXAMINATION: The patient is well appearing and in no apparent distress. Alert and oriented x 3. Examination of her left foot reveals mild edema about the dorsum of the midfoot with no evidence of erythema or warmth. Well-healed surgical incisions. Somewhat tender to palpation over the dorsum of the midfoot. Nontender to palpation elsewhere about the foot or ankle. Good ankle range of motion. Calf soft, nontender. Sensation intact light touch in the left lower extremity. RADIOLOGY: X-rays were ordered, obtained, and reviewed today in our office. 3 views of the left foot reveal some healing of her first and second TMT arthrodeses. One of her staple legs is broken on lateral view. IMPRESSION: About 3 months status post surgery as above PLAN: Discussed the findings and situation with the patient today. I am hopeful that she will improve given some time. She was given a prescription for a topical compound cream given her nerve pain today. Recommend she continue with supportive shoe wear. Should avoid any high-impact running or jumping. Follow-up in 2 months for recheck and repeat x-rays. Call with questions or concerns. The patient is ambulatory, but has weakness [...] condition, to please contact our office immediately. Regine Bernal PA-C [address], [place], [address], [facility] 01/27/2025 15:56:17 05/03/2025 text/html I am seeing this patient under the supervision of Dr. Alfonso, who was available but who did not see the patient. HPI: Patient is a 59 year old female presenting today about 6 months status post left first and second realignment arthrodeses and calcaneal bone graft augmentation. S she was last seen by myself about 3 months ago. Since that time she has fairly consistent pain and swelling in the foot. She does not feel like the swelling gets better at all with ice and elevation. She has difficulty with shoe wear secondary to swelling. She describes a constant bruise-like feeling at the plantar first TMT joint. Denies any interval trauma. Denies any fevers, chills, or paresthesias. PFMSH, Meds and ROS reviewed, updated and signed by me, and is located in the patient's chart. PHYSICAL EXAMINATION: The patient is well appearing and in no apparent distress. Alert and oriented x 3. Examination of her left foot reveals mild to moderate edema about the dorsum of the midfoot with no evidence of erythema or warmth. Well-healed surgical incisions. Somewhat tender to palpation over the dorsum of the midfoot and plantar 1st TMT joint. Nontender to palpation elsewhere about the foot or ankle. Good ankle range of motion. Calf soft, nontender. Sensation intact light touch in the left lower extremity. RADIOLOGY: X-rays were ordered, obtained, and reviewed today in our office. 3 views of the left foot reveal delayed healing of her first and second TMT arthrodeses. One of her staple legs is broken on lateral view which is consistent when compared to previous x-rays. 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 At this time given her x-rays and examination I am concerned about nonunion of the second TMT joint. She had early failure of her hardware suggestive of motion through the joint. I recommended a CT scan today to evaluate the second TMT joint further. She was given a prescription for a bone stimulator. Follow-up in 2 to 3 weeks. Call with questions or concerns. The patient is ambulatory, but has weakness [...] condition, to please contact our office immediately. Regine Bernal PA-C [address] [facility] [address], [place], [address], [facility] [place] [facility] 05/04/2025 05:31:36 OBGyn Episode No OBEpisode recorded.
[2025-05-13 17:40] LABS: Baso%MD 0.8 %; Eos%MD 3.7 %; Hematocrit 41.2 % (37.0-47.0); Hemoglobin 13.6 g/dl (12.0-16.0); IG%MD 0.2 %; Lymph%MD 36.1 %; Mean Corpuscular Hemoglobin 28.8 pg (27.0-33.0); Mean Corpuscular Volume 87.3 fL (80.0-98.0); Mean Platelet Volume 10.7 fL (9.4-12.3); Mono%MD 9.6 %; Neut%MD 49.6 %; Platelet Count 292 X10*3/uL (160-400); Red Blood Count 4.72 X10*6/uL (4.20-5.50); Red Cell Distribution Width 14.7 % (11.0-16.0); White Blood Count 5.1 X10*3/uL (4.8-10.8)
[2025-05-13 17:59] LABS: Alanine Aminotransferase 27 U/L (0-31); Aspartate Amino Transferase 30 U/L (5-31); C Reactive Protein 0.21 mg/dL (< or = 0.50); Estimated Glomerular Filt Rate > 60
[2025-05-13 18:29] LABS: Erythrocyte Sedimentation Rate 5 MM/HR (0-20)
[2025-05-13 19:10] LABS: Basophils Abs Manual 0.1 X10*3/uL (0.0-0.2); Basophils Percent Manual 1 % (0-2); Eosinophils Absolute Manual 0.1 X10*3/uL (0.0-0.4); Eosinophils Percent Manual 1 % (0-4); Lymphocytes Percent Manual 40 % (20-40); Monocytes Absolute Manual 0.4 X10*3/uL (0.1-1.2); Monocytes Percent Manual 8 % (2-11); Neutrophils Percent Manual 50 % (45-73)
[2025-05-13 19:12] LABS: Band Neutrophils Percent 0 % (3-5); Neutrophils Absolute Manual 2.6 X10*3/uL (2.0-8.3); Platelet Estimate NORMAL (NORMAL); Platelet Morphology Comment NORMAL; RBC Morphology NORMAL
== END 2025-05-13 15:51 | disposition home or self-care (01) ==
LOC: HO.HKASLDS 15:50
PROVIDERS: Visit Provider Internal Medicine Rheumatology
DX: M05.79 Rheumatoid arthritis with rheumatoid factor of multiple sites without organ or systems involvement (principal)
CPT/HCPCS: 36415; 82565; 84450; 84460; 85007; 85027; 85652; 86140

== ENCOUNTER 2025-05-18 10:09 | Outpatient (AMB) | payer MEDICARE, SELFPAY ==
--- NOTE | 2025-05-18 10:32 | A.OFFVIS_ITS ---
Vital Signs 05/18/25 10:33 Height 5 ft 2 in Weight 189 lb BMI 34.6 BP 130/80 Blood Pressure Location Rt brachial Position Sitting Pulse 78 Pulse Source Pulse Oximeter Pulse Oximetry (%) 98 Oxygen Delivery Method Room Air Intake Visit Reasons: 3 Months Intake Note: Patient presents for follow up on labs. Allergies No Known Allergies (No Known Allergies*) Allergy (Verified 05/18/25 10:34) HPI HPI 3 Months: Details: She feels well. She is able to live an active life but continues to have left foot swelling secondary to foot surgery in September and reports that a screw has broken off and there is decrease healing of bone. No recent infections. [facility] Medical History History of reverse total replacement of both shoulders Surgical History S/P foot surgery, left H/O bilateral hip replacements History of knee replacement procedure of left knee Bariatric surgery status History of spinal fusion Carpal tunnel syndrome of right wrist Carpal tunnel syndrome of left wrist History of arthroscopy of left knee Social History Alcohol intake: current Alcohol intake frequency: a few times a week Alcohol type: hard liquor Patient Tobacco Use Status: Never used Tobacco Current occupational status: disabled Physical Exam Vital Signs: Last Vital Signs Pulse 78 05/18/25 10:33 BP 130/80 05/18/25 10:33 Pulse Ox 98 05/18/25 10:33 Oxygen Delivery Method Room Air 05/18/25 10:33 BMI result Body Mass Index 34.6 Const Other: General: Comfortable CVS: RRR Respiratory: clear to auscultation bilaterally. Good respiratory effort Skin: No lesions seen MSK: No tenderness of any joints. Bilateral 2nd and 3rd MCP chronic synovial thickening present without tenderness. Shoulder abduction 160 degrees bilateral. Good internal external rotation of bilateral shoulders. Normal range of motion of elbows. Normal range of motion of lower extremities. She has synovitis of left foot with tenderness on palpation. Dorsal foot swelling of left foot without erythema. Wound is healing well. Results Reviewed Results Reviewed: Abdominal ultrasound November 2024 unremarkable Assessment & Plan Assessment & Plan (1) Rheumatoid arthritis: Comment: She continues to have synovitis in bilateral 2nd and 3rd MCPs. She had surgery left foot September 2025 and reports that a screw is broken. She continues to have swelling in left foot, which I am concerned may be also related to active inflammatory arthritis. She had mild transaminitis on blood work from September and 11/13/2024. Resolved with lower dose of methotrexate. Abdominal ultrasound from November 2024 revealed no liver abnormalities. We discussed management of inflammatory arthritis. She is currently on triple therapy. I will try to optimize methotrexate dose but if she develops transaminitis again, we will need to change treatment with consideration of a biologic such as TNF inhibitor that would replace to of her conventional DMARDs. Discussed side effects and benefits. Patient agrees with trying a course of prednisone before she sees orthopedic surgeon to reduce systemic inflammation and joint swelling. There is a risk of decrease bone healing with systemic glucocorticosteroid use but I will only use a short course, which will reduce this risk. Rheumatology history: Seropositive (RF 19). MTX 09/2022-. She has been on HCQ. Methotrexate is contributing to loose stools but tolerable. Code(s): M06.9 - Rheumatoid arthritis, unspecified Category: Medical Qualifiers: Rheumatoid arthritis location: multiple sites Rheumatoid factor presence: with rheumatoid factor Qualified Code(s): M05.79 - Rheumatoid arthritis with rheumatoid factor of multiple sites without organ or systems involvement Plan: Continue hydroxychloroquine 400 mg daily. 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 Take prednisone with food. 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
[2025-05-18 10:33] VITALS: BP 130/80; PULSE 78; O2SAT 98; BMI 34.6
--- OUTSIDE RECORDS SUMMARY | 2025-05-18 11:14 | XMS_ITS | Data Portability ---
Author Organization [facility], [facility] Address [address] [place] [address] Care Team Providers Care Elevator Examiner Name Role Phone NENA RODRIGUEZ Primary Care Provider [phone] Assessment Encounter Date Assessment Date Assessment LastModified [...] obtained and reviewed by me today at [facility], demonstrating interval healing of her [...] condition, to please contact our office immediately. [email or web address] Not available 12/04/2024 10:37:02 Plan of Treatment Reminders Order Date Submit Date Provider Last Modified By Organization Details Last Modified Time Details Appointments RECHECK 2024 08:15A Flakito Alfonso MD Not available Not available Not available Lab None recorded. Referral None recorded. Procedures None recorded. Surgeries None recorded. Imaging XR, foot, 3 or more view - rm# 104 3v lt foot wb 2024 025 [email or web address] [facility], [address], [address], [place], [address], 05/07/2025 12:23:14 CT, foot, w/o contrast - Left foot eval 1st and 2nd TMT fusions 2024 025 LAZARUS [facility] [place], [address], [address], [place], [address], 05/09/2025 21:08:03 XR, foot, 3 or more view 2024 025 [email or web address] [facility], [address], [address], [place], [address], 02/08/2025 10:25:51 XR, foot, 3 or more view - RM 109 -- post op 3V FOOT WB-- pt in cast room 2024 025 cstamand [facility], [address] [facility], [facility] [address], [place], [address], 12/16/2024 08:20:06 Medication Orders compounde d medicatio n 2024 025 [facility], [address] [place] [address], [address], [place], [address], 01/27/2025 13:11:21 Patient TargetsNo targets recorded. Patient [...] a4ajBk vP9nXo QUaueC m3YtLR FvZlgJ JJ8mAn HZtai3 5h1049 AC0Kqb 3%2BAU qqmKiQ trMwF INTERFACE [facility] [address] [facility] [address], [place], [address], 12/04/2024 10:15:03 12/04/19 25 12/04/2024 XR, foot, 3 or more view [email or web address] ?Encry pted=s hAaTro YD8dLq bEUv6g %2BXZw aYqtaq 0bqfl% 2Fg9IQ a4ajBk vP9nXo QUaueC m3YtLR FvZlgJ JJ8Provencal HZtai3 8r5511 AC0Kqb 3%2BAU qqmKiQ trMwF INTERFACE [facility] [address] [address], [place], [address], 12/04/2024 10:15:05 01/27/20 25 01/26/2025 XR, foot, 3 or more view [email or web address] ?Encry pted=s hAaTro YD8dLq bEUv6g %2BXZw aYqtaq 0bqfl% 2Fg9IQ a4ajBk vP9nXo QUaueC m3YtLR Zl [facility] HZtai3 0c6083 AC0Kqb XqFVKS mKiQtr MwF INTERFACE [address] [address], [place], [address], 01/26/2025 11:07:07 01/27/20 25 01/26/2025 XR, foot, 3 or more view [email or web address] ?Encry pted=s hAaTro YD8dLq bEUv6g %2BXZw aYqtaq 0bqfl% 2Fg9IQ a4ajBk vP9nXo QUaueC m3YtLR FvZl JJ8mAn HZtai3 8b3414 AC0Kqb XqFVKS mKiQtr MwF INTERFACE [facility] [address] [address], [place], [address], 01/26/2025 11:07:09 05/03/20 25 05/03/2025 XR, foot, 3 or more view [email or web address] ?Encry pted=s hAaTro YD8dLq bEUv6g %2BXZw aYqtaq 0bqfl% 2Fg9IQ a4ajBk vP9nXo QUaueC m3YtLR FvZl JJ8Provencal HZtai3 8j9956 AC0Kla HyBU6q iKiQtr MwF INTERFACE [facility] [address] [facility] [address], [place], [address], 05/03/2025 10:09:25 05/03/20 25 05/03/2025 XR, foot, 3 or more view [email or web address] ?Encry pted=s hAaTro YD8dLq bEUv6g %2BXZw aYqtaq 0bqfl% 2Fg9IQ a4ajBk vP9nXo QUaueC m3YtLR FvZlgJ JJ8mAn HZtai3 6e5627 AC0Kla HyBU6q iKiQtr MwF INTERFACE [facility] [address] [facility] [address], [place], [address], 05/03/2025 10:09:27 05/09/20 25 05/07/2025 CT, foot, w/o contr ast No observ ation record ed. [email or web address] [facility] [place] [address] [facility] [address], [place], [address], 05/10/2025 07:28:27 Result Notes Documentation Provider Name and Address Organization Details Recorded Time Xr, Foot, 3 Or More View : [email or web address] Encrypted=waCgUvdHB8pNttG Uv6g%9OOVkxDzpim2ntve%2Fg 7VKr2hbRdkO3gFmRQgneAd0Wc MNFtEobREE8eSuQEwrm10o433 3ZY5Ukm8%2BAUqqmKiQtrMwF Not Available [facility] 12/04/2024 10:1 5:04 Xr, Foot, 3 Or More View : [email or web address] Encrypted=fcPvJkeUO1vXrfA Uv6g%7HVCmlSgdfn4sshn%2Fg 1NFd4djSopZ9uXgOHhlzUg0Cl VRMwNmmYGH3oSwDMyyh10i890 2TJ7Jib5%2BAUqqmKiQtrMwF Not Available [facility] 12/04/2024 10:1 5:06 Xr, Foot, 3 Or More View : [email or web address] Encrypted=fnOdHlaAY8yUceM Uv6g%9XWKffJuvtj3oncr%2Fg 5HCz5cyIpbT0xTvBTebrXm6Xu WYDjBsgZWK1oPsEHxnf90p878 2HZ7BkuKeXNBMiZlVqjQzF Not Available [facility] 01/26/2025 11:07: 08 Xr, Foot, 3 Or More View : [email or web address] Encrypted=xlTlJdxQO9pRzbI Uv6g%5XIAfwMefut2yfnk%2Fg 2KCe5uyJtgG5tZrUFgrmRh3Cz VIGxPtnCAM4qCaEMydz81d241 2WY0AxyWhCHJCnOcDvcEeO Not Available [facility] 01/26/2025 11:07: 10 Xr, Foot, 3 Or More View : [email or web address] Encrypted=lmLkDhtQR3zMmfW Uv6g%2FJOffCithy5wuth%2Fg 9VMu7swGmfO3xClUBwfmZk1Gc QHYqKqlZLW7vHoYQoik33k344 3LR7NzhNhAI1ujKnUfuFkW Not Available [facility] 05/03/2025 10:09: 25 Xr, Foot, 3 Or More View : [email or web address] Encrypted=cvElTbrNT5wSclS Uv6g%5GTXzdVhhoo7knav%2Fg 3GLj7qoOedZ8aMcAMotnAt2Zp JBGvUkjAMT0iPrTFecl04q309 3ZK5MugBcWK1itVnRgeVvX Not Available [facility] 05/03/2025 10:09: 28 Problems Name Problem SNOMED Code Status Onset Date Resolution Date Notes Provider Name and Address Organization Details Recorded Time Left metatarsus adductus 0874945993706 9103 Active 2024 Regine Bernal PA-C [address], [facility] [place], [address] , [facility] 5 05:31:17 Localized, primary osteoarthr itis of the shoulder region 923041419 Active 2020 Status : 'A'; Not Available [facility] 4 10:55:09 Problem Notes None recorded. Procedures Surgical History Date Name Laterality Status Provider Name and Address Organization Details Recorded Time 4 Cast_Short Leg_11+ completed [facility] 11/16/2024 13:50:13 4 Cast Removal completed [facility] 11/16/2024 13:48:54 Imaging Results None recorded. Procedure [...] Updated DateTime 12/04/2024 157.48 cm 36.2 kg/m2 68348.29 g KECIA Tomas [facility] 12/04/2024 10:01:55 Date Recorded Body height Body mass index (BMI) Body weight Provider Name and Address Organization Details Last Updated DateTime 01/26/2025 157.48 cm 36.2 kg/m2 82591.29 g NITISH AUGUST [facility] 01/26/2025 11:00:32 Date Recorded Body height Body mass index (BMI) Body weight Provider Name and Address Organization Details Last Updated DateTime 05/03/2025 157.48 cm 34 kg/m2 42616.18 g Dorene Valenzuela [facility] 05/03/2025 10:02:46 Date Recorded Body height Body mass index (BMI) Body weight Provider Name and Address Organization Details Last Updated DateTime 05/17/2025 157.48 cm 34 kg/m2 97027.18 g NITISH AUGUST [facility] 05/17/2025 14:19:45 Social History None recorded. 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 750856083 M19.272 Acquired c avus deformity of foot 17235675 M21.6X2 [id number] Alcira Proctor PA-C [facility] [address] [place] [address] 11/05/2024 10:41:14 11/26/2024 17:40:16 Postoperative visit 996275836 Z48.89 [id number] Ramy Alfonso MD [facility] [address] [place] [address] 11/16/2024 13:19:34 11/16/2024 13:51:19 Surgical follow-up 041103818 Z48.89 [id number] Ramy Alfonso MD [place] [facility] [address] [place] [address] 12/04/2024 09:48:12 12/16/2024 08:20:06 Pain in left foot 5344364711 85364 M79.672 Postoperative visit 1836 74675 Z48.89 [id number] Regine Bernal PA-C [place] [facility] [address] [place] [address] 01/26/2025 10:09:23 02/08/2025 10:25:51 Pain in left foot 9111308308 92867 M79.672 Left metat arsus adductus 4589610974 7681289 Q66.147 [id number] Regine Bernal PA-C [place] [facility] [address] [place] [address] 05/03/2025 09:13:38 05/07/2025 12:23:14 Ankle pain 124503404 M25.572 Pain in left foot 599542 7546 66733 M79.672 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 fusion or arthrodesis 062517102 M96.0 Left metat arsus adductus 2546855023 5311310 Q66.222 Health Concerns Section Related Observation LastModified by Organization Detai ls LastModified Time None Recorded Concern Status LastModified by Organization Details LastModified Time None Recorded Advance Directives Directive None Recorded Payers Insurance Date Sequence Insurance Name Policy Number Policy Acuna Covered Member ID Acuna Member ID Guarantor Name 05/01/2025 [employer] - SPECIALITY CLAIMS (MEDICARE DME REGION A) Delia Aliya Denny [id number] Delia R Denny 04/30/2025 1 MEDICARE B-[place]: [facility] [employer] Delia R Denny [id number] Delia Aliya Denny Notes Date Note Type Note Provider Name and Address Organization Details Recorded Time 01/26/2025 text/html I am seeing this patient [...] our office immediately. Regine Bernal PA-C [address] [facility] [address], [place], [address], [facility] 01/27/2025 15:56:17 05/03/2025 text/html I am seeing [...] our office immediately. Regine Bernal PA-C [address] [facility] [address], [place], [address], [facility] 05/04/2025 05:31:36 OBGyn Episode No OBEpisode recorded.
== END 2025-05-18 11:27 | disposition home or self-care (01) ==
LOC: HO.RHES 10:09
PROVIDERS: Visit Provider Internal Medicine Rheumatology
DX: M05.79 Rheumatoid arthritis with rheumatoid factor of multiple sites without organ or systems involvement (principal); Z79.899 Other long term (current) drug therapy
CPT/HCPCS: 99214; G2211

== ENCOUNTER → 2025-05-18 10:09 | Outpatient (BNVA) | payer MEDICARE, SELFPAY | PROVIDERS: Visit Provider Internal Medicine Rheumatology | DX: M05.79 Rheumatoid arthritis with rheumatoid factor of multiple sites without organ or systems involvement (principal); Z79.899 Other long term (current) drug therapy | CPT/HCPCS: 99212 ==

== ENCOUNTER 2025-07-19 09:34 | Outpatient (REF) | payer MEDICARE, SELFPAY ==
--- OUTSIDE RECORDS SUMMARY | 2025-07-19 10:25 | XMS_ITS ---
Author Name [place] Organization Unknown Care Team Organization Name Specialty Phone Email Start Date End Da te [facility] ACO 07/14/2025 [facility] NENA RODRIGUEZ [email or web address] 08/01/2023 4
--- OUTSIDE RECORDS SUMMARY | 2025-07-19 10:25 | XMS_ITS | Clinical Summary ---
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 Active folic acid (FOLVITE) 1 mg tablet Take 1 Tablet by mouth daily. Active hydroxychloroquin e 400 mg tablet Take 1 Tablet by mouth daily. Active leflunomide (ARAVA) 10 mg tablet Take 1 Tablet by mouth daily. Active methotrexate (TREXALL) 10 mg tablet Take 2 Tablets by mouth once a week. Active hydroCHLOROthiazi de (MICROZIDE) 12.5 mg capsuleIndication s:Essential hypertension TAKE ONE CAPSULE BY MOUTH EVERY DAY 90 capsule 1 5 Active gabapentin (NEURONTIN) 600 mg tabletIndications :Cervical radiculopathy at C6,Tibial neuropathy, left,Peroneal neuropathy, left,Ulnar neuropathy of both upper extremities TAKE ONE TABLET BY MOUTH THREE TIMES A DAY 270 tablet 1 5 Active fluticasone propionate (FLONASE) 50 mcg/actuation nasal sprayIndications: Seasonal allergic rhinitis due to pollen Administer 1 spray into each nostril 2 (two) times a day. Shake gently. Before first use, prime pump. After use, clean tip and replace cap. 16 g 1 5 04/30/20 26 Active fexofenadine (SUSI) 180 mg tabletIndications :Seasonal allergic rhinitis due to pollen Take 1 tablet (180 mg total) by mouth 1 (one) time each day if needed (allergies). 90 tablet 1 5 10/27/20 25 Active albuterol HFA (PROAIR HFA ; PROVENTIL HFA ; VENTOLIN HFA) 90 mcg/actuation inhaler Inhale 1 puff by mouth every 6 (six) hours if needed for wheezing. 6.7 g 1 5 10/27/20 25 Active amitriptyline (ELAVIL) 10 mg tabletIndications :Peroneal neuropathy, left,Tibial neuropathy, left Take 1 tablet (10 mg total) by mouth at bedtime. 90 each 5 08/18/20 25 Active Active Problems Problem Noted Date Diagnosed Date Seasonal allergic rhinitis due to pollen 025 Assessment & Plan (04/30/2025 1:11 PM EDT): Continue Flonase and Susi Orders: fluticasone propionate (FLONASE) 50 mcg/actuation nasal spray; Administer 1 spray into each nostril 2 (two) times a day. Shake gently. Before first use, prime pump. After use, clean tip and replace cap. fexofenadine (SUSI) 180 mg tablet; Take 1 tablet (180 mg total) by mouth 1 (one) time each day if needed (allergies). Ulnar neuropathy of both upper extremities 10/12 Assessment & Plan (04/30/2025 1:11 PM EDT): Continue gabapentin 600 mg 3 times daily Assessment & Plan (10/12/2024 1:38 PM EST): Defers referral to hand surgeon for now. She will let me know when she is ready. For now symptoms are managed with the gabapentin Orders: gabapentin (NEURONTIN) 600 mg tablet; Take 1 tablet (600 mg total) by mouth 3 (three) times a day. Obesity (BMI 30-39.9) 10/12/2024 Assessment & Plan (04/30/2025 1:11 PM EDT): She will continue with weight loss efforts. She has already lost 16 pounds since September and is congratulated on this Assessment & Plan (10/12/2024 1:38 PM EST): Interested in medication management Orders: Ambulatory referral to Bariatric Surgery; Future Tibial neuropathy, left 05/29/2024 Assessment & Plan (04/30/2025 1:11 PM EDT): Continue gabapentin 600 mg 3 times daily Assessment & Plan (10/12/2024 1:38 PM EST): Orders: gabapentin (NEURONTIN) 600 mg tablet; Take 1 tablet (600 mg total) by mouth 3 (three) times a day. Peroneal neuropathy, left 05/29/2024 Assessment & Plan (04/30/2025 1:11 PM EDT): Continue gabapentin 600 mg 3 times daily Assessment & Plan (10/12/2024 1:38 PM EST): Orders: gabapentin (NEURONTIN) 600 mg tablet; Take 1 tablet (600 mg total) by mouth 3 (three) times a day. Rheumatoid arthritis involvi ng multiple sites with positive rheumatoid factor ([facility] V24, [facility] V28) 11/01/2023 Assessment & Plan (04/30/2025 1:11 PM EDT): Continue follow-up with Dr. Linn. continue methotrexate 20mg weekly, folic acid, leflunomide 10mg daily, hydroxychloroquine 400 mg daily, Celebrex PRN Assessment & Plan (10/12/2024 1:38 PM EST): Continue follow up with Dr. Linn( has appt 11/10/24). Continue methotrexate 20mg weekly, folic acid, leflunomide 10mg daily, hydroxychloroquine 400 mg daily, Celebrex Gastroesophageal reflux disease without esophagi tis 11/01/2023 Prediabetes 03/25/2023 Assessment & Plan (04/30/2025 1:11 PM EDT): Continue lifestyle management. Will update labs Orders: Hemoglobin A1c; Future Comprehensive metabolic panel; Future Assessment & Plan (10/12/2024 1:38 PM EST): Stable. Orders: Comprehensive metabolic panel; Future Hemoglobin A1c; Future Cervical radiculopathy at C6 01/21/2020 Overview (09/01/2024): Planning for surgical intervention with [facility] neurosurgery, Dr. Mesa 12/2019; completed 02/15/20 Assessment & Plan (04/30/2025 1:11 PM EDT): Continue gabapentin 600 mg 3 times daily Assessment & Plan (10/12/2024 1:38 PM EST): Orders: gabapentin (NEURONTIN) 600 mg tablet; Take 1 tablet (600 mg total) by mouth 3 (three) times a day. Shoulder pain, bilateral 05/13/2018 Overview (09/01/2024): Ortho, Dr. Anand [facility] Avascular necrosis of bones of both hips ([facility] V24, [facility] V28) 02/13/2018 Overview (09/01/2024): THR L in 2013; THR -R in 2017 Essential hypertension 10/31/2017 Assessment & Plan (04/30/2025 1:11 PM EDT): Well-controlled. Continue hydrochlorothiazide 12.5 mg daily Assessment & Plan (10/12/2024 1:38 PM EST): BP is well controlled Orders: hydroCHLOROthiazide (MICROZIDE) 12.5 mg capsule; Take 1 capsule (12.5 mg total) by mouth 1 (one) time each day. Hyperlipidemia 10/31/2017 Overview (10/17/2024): Calculated ASCVD risk, 4.7%. No statin recommended. Assessment & Plan (04/30/2025 1:11 PM EDT): For now she is not interested in statin. Continue lifestyle management. Will update fasting labs Orders: Lipid panel with reflex to direct LDL; Future Comprehensive metabolic panel; Future Assessment & Plan (10/12/2024 1:38 PM EST): She does not smoke cigarettes. For now , not on statin. Will recalculate ASCVRD risk socre once new labs are done Orders: Lipid panel with reflex to direct LDL; Future Mild intermittent asthma without complication Assessment & Plan (04/30/2025 1:11 PM EDT): Stable. Continue albuterol as needed. Assessment & Plan (03/26/2025 8:03 AM EDT): As above Orders: predniSONE (DELTASONE) 20 mg tablet; Take 2 tablets (40 mg total) by mouth 1 (one) time each day for 5 days. benzonatate (TESSALON) 100 mg capsule; Take 1 capsule (100 mg total) by mouth 3 (three) times a day if needed for cough. Do not crush or chew. Assessment & Plan (10/12/2024 1:38 PM EST): Stable. Continue albuterol PRN Carpal tunnel syndrome 01/07/2014 Overview (09/01/2024): Bilateral; EMG 12/08 Planninf for R release with Dr. Anand, [facility] 08/2018 Depression 12/08/2010 Nephrolithiasis 10/05/2010 Overview (09/01/2024): Kick; ESWL, Left Perinephric fluid 09/03 [facility], Dr. Pedro Pablo Benjamin ED visit, left ureteral stone 11/2017 Encounters Date Type Department Care Team Description 05/03/2025 10:47 AM EDT - 05/03/2025 11:59 PM EDT Hospital Encounter Radiology Department - [address] [phone] Left leg swelling Discharge Disposition: Home or Self Care 04/30/2025 12:30 PM EDT Office Visit Adult Medicine [address] [phone] Ben Aguilar MD Essential hypertension (Primary Dx); Mild intermittent asthma without complication; Rheumatoid arthritis involving multiple sites with positive rheumatoid factor (CMS/HCC V24, CMS/HCC V28); Cervical radiculopathy at C6; Peroneal neuropathy, left; Tibial neuropathy, left; Ulnar neuropathy of both upper extremities; Obesity (BMI 30-39.9); Mixed hyperlipidemia; Prediabetes; Seasonal allergic rhinitis due to pollen; Left leg swelling; Need for vaccination against Streptococcus pneumoniae 04/20/2025 Telephone Adult Medicine [address] [phone] Ben Aguilar MD from Last 3 Months Immunizations Name Administration Dates Next Due COVID-19 (Pfizer/Comirnaty) 12yo and older 08/25/2024 Influenza Quadravalent, MDCK , 0.5ml, preservative free (Flucelvax) 6mo and older 08/25/2024,09/10/2022 Influenza Quadravalent, MDCK , 0.5ml, with preservative (Flucelvax) 6mo and older 09/06/2020,08/12/2017 Influenza trivalent, 0.5mL, preservative free (Fluarix; FluLaval; Fluzone) ages 6mo and older (Afluria) 3 years and older 08/08/2024 Influenza trivalent, with pr eservative (Fluzone; Afluria) 6mo and older 10/14/2023,09/05/2021,08/05/2019,09/15,09/24/2016,08/24/2014 Pneumococcal conjugate 20 va lent (Prevnar 20, PCV 20) 2mo and older 04/30/2025 Pneumococcal polysaccharide 23 valent (Pneumovax 23) 2yo and older 01/11/2015 Tdap Tetanus diptheria acell ular pertussis (Boostrix; Adacel) 7yo and older 11/01/2023,10/12/2013 Zoster recombinant (Shingrix ) 19yo and older 11/26/2021,09/05/2021 Surgical History Surgery Date Site/Laterality Comments MULTIPLE TOOTH EXTRACTIONS PROCEDURE: HISTORICAL DENTAL EXTRACTION BELT ABDOMINOPLASTY PROCEDURE: HISTORICAL TUMMY TUCK OTHER SURGICAL HISTORY 08/31 PROCEDURE: IA HYSTEROSCOPY ENDOMETRIAL ABLATION; COMMENT: TUBAL LIGATION PROCEDURE: HISTORICAL TUBAL LIGATION HYSTERECTOMY 2008 PROCEDURE: HISTORICAL HYSTERECTOMY; COMMENT: Blank BREAST BIOPSY PROCEDURE: BX BREAST; PERC NEEDLE CORE W/IMAG GUID; COMMENT: Left BARIATRIC SURGERY 09/24/14 PROCEDURE: IA LAPS GSTRC RSTRICTIV PX LONGITUDINAL GASTRECTOMY; COMMENT: Fialo; sleeve HIP ARTHROPLASTY 04/12/2015 Left PROCEDURE: HISTORICAL HIP REPLACEMENT HIP ARTHROPLASTY 09/24/2017 Right PROCEDURE: HISTORICAL HIP REPLACEMENT BREAST SURGERY PROCEDURE: IA UNLISTED PROCEDURE BREAST; COMMENT: BREAST LIFT BREAST SURGERY PROCEDURE: IA UNLISTED PROCEDURE BREAST; COMMENT: implants TOTAL KNEE ARTHROPLASTY 01/07/2018 Left PROCEDURE: HISTORICAL TOTAL KNEE REPLACE; COMMENT: [facility] CARPAL TUNNEL RELEASE 2017 Bilateral PROCEDURE: HISTORICAL CARPAL TUNNEL REL; COMMENT: Right 10/01/18, left 10/2018; [facility] NECK SURGERY 02/15/2020 PROCEDURE: HISTORICAL NECK SURGERY; COMMENT: Anterior cervical discectomy C6-C7, interbody device, fusion, plate; Dr. Mesa, [facility] SHOULDER SURGERY 11/03/2020 Left PROCEDURE: HISTORICAL SHOULDER SURGERY; COMMENT: Replacement/[employer] NEOS OTHER SURGICAL HISTORY Bilateral PROCEDURE: IMPLANT BREAST SILICONE/EQ; COMMENT: saline FOOT SURGERY 10/21/2024 NEOS for bone spurs Medical History Medical History Date Comments Excessive or frequent menstruation 08/18/2007 DX:Excessive or frequent menstruation Abdominal pain, generalized 08/18/2007 DX:A bdominal pain, generalized Other specified personal his tory presenting hazards to health(V15.89) DX:Other specifie d personal history presenting hazards to health(V15.89); COMMENT: ? results had cryosurgery in her 20's Nephrolithiasis 10/05/2010 DX:Nephrolithias is; COMMENT: 01/2016 Essential hypertension 10/31/2017 DX:Essent ial hypertension Avascular necrosis of bones of both hips (CMS/HCC V24, CMS/HCC V28) 02/13/2018 DX:Avascular necrosis of bones of both hips (HCC); COMMENT: THR L in 2014; THR -R in 2017 History of 2019 novel mills virus disease (COVID-19) 11/09/2020 DX:History of 2019 novel coronavirus disease (COVID-19) Near syncope 07/17/2021 DX:Near syncope History of shingles 08/04/2018 DX:History o f shingles; COMMENT: 07/25/18 right face Gastroesophageal reflux dise ase without esophagitis 11/01/2023 DX:Gastroesophageal reflux d isease without esophagitis Family History Medical History Relation Name Comments Hyperlipidemia Father Hypertension Father Nephrolithiasis Father Diabetes Mother Blindness Neg Hx Breast cancer Neg Hx Cataracts Neg Hx Colon cancer Neg Hx Glaucoma Neg Hx Macular degeneration Neg Hx Ovarian cancer Neg Hx Strabismus Neg Hx Uterine cancer Neg Hx Relation Name Status Comments Father Mother Social History Tobacco Use Types Packs/Day Years Used Date Smoking Tobacco: Former Cigarettes Q uit: 11/25/1986 Smokeless Tobacco: Never Alcohol Use Standard Drinks/Week Comments Yes 0 (1 standard drink = 0.6 oz pur e alcohol) Comments No Sex and Gender Information Value Date Recorded Sex Assigned at Not on file Legal Sex Female 5:16 AM EST Gender Identity Not on file Sexual Orientation Not on file Obstetrics History Para Term AB IAB SAB Ectopic Multiple Livin g Live Births 1 1 1 1 Date Outcome GA Total Labor Labor/2nd/3rd Weight Sex Type Anes PTL Lucrecia A1 A5 Name Clin Term Last Filed Vital Signs Vital Sign Reading Time Taken Comments Blood Pressure 125/77 04/30/2025 12:18 PM EDT Pulse 80 04/30/2025 12:18 PM EDT Temperature 36.8 C (98.2 F) 04/30/2025 12:18 PM EDT Respiratory Rate 17 04/30/2025 12:18 PM EDT Oxygen Saturation - - Inhaled Oxygen Concentration - - Weight 83.5 kg (184 lb) 04/30/2025 12:18 PM EDT Height 157.5 cm (5' 2 ) 04/30/2025 12:18 PM EDT Body Mass Index 33.65 04/30/2025 12:18 PM EDT Plan of Treatment Health Maintenance Due Date Last Done Comments HIV Screening 11/03/2022 Medicare Annual Wellness Visit 11/03/2022 Social Influencers of Health Screening 11/03/2022 RSV Immunization Adult Patients (1 - Risk 60-74 years 1-dose series) 2024 COVID-19 Vaccine (5 - Mixed Product risk season) 2025 08/25/2024, 12/15/2021, 03/19/2021, Additional history exists Influenza Vaccine (#1) 2025 , 08/08/2024, 10/14/2023, Additional history exists Hypertension/CHF/CAD Annual BMP Blood Test 05/03/2026 05/03/2025, 10/16/2024, 04/27/2024, Additional history exists Breast Cancer Screening 03/29/2027 03/29/20, 03/16/2024, 03/29/2023, Additional history exists Colorectal Cancer Screening: Colonoscopy 06/18/2027 06/18/2017 Cholesterol Screening (Lipid Panel) 05/03/2030 05/03/2025, 10/16/2024, 04/27/2024, Additional history exists DTaP,Tdap,and Td Vaccines (3 - Td or Tdap) 11/01/2033 11/01/2023, 10/12/2013 Cervical Cancer Screening: Pap Smear Discontinued 03/25/2009 Hepatitis C Screening Completed 10/09/2019 Zoster Vaccines Completed 11/26/2021, 09/05/2021 Depression Screening Completed 03/26/2025, 11/01/20 23 Pneumococcal Vaccine: 50+ Years Completed 04/30/2025, 01/11/2015 HIB Vaccines Aged Out No longer eligi ble based on patient's age to complete this topic HPV Vaccines Aged Out No longer eligi ble based on patient's age to complete this topic Hepatitis A Vaccines Aged Out No long er eligible based on patient's age to complete this topic Hepatitis B Vaccines Aged Out No long er eligible based on patient's age to complete this topic IPV Vaccines Aged Out No longer eligi ble based on patient's age to complete this topic MMR Vaccines Aged Out No longer eligi ble based on patient's age to complete this topic Meningococcal ACWY Vaccine Aged Out N o longer eligible based on patient's age to complete this topic Meningococcal B Vaccine Aged Out No l onger eligible based on patient's age to complete this topic RSV Immunization Patients Under 20 months Aged Out No longer eligible based on patient's age to complete this topic Varicella Vaccines Aged Out No longer eligible based on patient's age to complete this topic Procedures Procedure Name Priority Date/Time Associated Diagnosis Comments VAS US DUPLEX LOWER EXT VENOUS LEFT STAT 05/03/2025 11:03 AM EDT Left leg swelling HEMOGLOBIN A1C Routine 05/03/2025 7:55 AM EDT Prediabetes LIPID PANEL WITH REFLEX TO DIRECT LDL Routine 05/03/2025 7:55 AM EDT Mixed hyperlipidemia COMPREHENSIVE METABOLIC PANEL Routine 05/03/2025 7:55 AM EDT Mixed hyperlipidemia Prediabetes MG MAMMO DIGITAL SCREENING W TRENT BILAT Routine 03/29/2025 9:31 AM EDT Encounter for screening mammogram for breast cancer DEPRESSION SCREENING Routine 11/01/2023 HEPATITIS C SCREENING Routine 10/09/2019 COLONOSCOPY Routine 06/18/2017 PAP SMEAR Routine 03/25/2009 from Last 3 Months or Most Recently Relevant to Health Maintenance Results * Vascular US duplex lower extremity venous left (05/03/2025 11:03 AM EDT) Anatomical Region Laterality Modality Vascular, Abdomen Ultrasound 05/03/2025 11:0 6 AM EDT Impressions 05/03/2025 11:07 AM EDT Impression: Normal left lower extremity deep venous Doppler examination. No evidence of DVT. -------- FINAL REPORT -------- Dictated By: Suzy Esparza Dictated Date: 05/03/2025 11:06 ET Assigned Physician: Suzy Esparza Reviewed and Electronically Signed By: Suzy Esparza Signed Date: 05/03/2025 11:07 ET Workstation ID: [id number] Transcribed By: Self Edit Transcribed Date: 05/03/2025 11:06 ET Narrative 05/03/2025 11:07 AM EDT History: Edema left. Left leg swelling. Status post foot surgery.. Left lower extremity deep venous Doppler examination: Real-time, duplex and color Doppler examination of the deep venous system of the left lower extremity was performed, including the common femoral, greater saphenous, profunda femora takeoff, femoral and popliteal venous segments, as well as the paired posterior tibial, peroneal and gastrocnemius veins in the calf. Color filling appears normal. There are no appreciable filling defects. Compression and augmentation were normal throughout. No abnormal fluid collections are demonstrated. Procedure Note Suzy Esparza MD - 05/03/2025 History: Edema left. Left leg swelling. Status post foot surgery.. Left lower extremity deep venous Doppler examination: Real-time, duplexand color Doppler examination of the deep venous system of the left lowerextremity was performed, including the common femoral, greater saphenous,profunda femora takeoff, femoral and popliteal venous segments, as well asthe paired posterior tibial, peroneal and gastrocnemius veins in the calf. Color filling appears normal. There are no appreciable filling defects. Compression and augmentation were normal throughout. No abnormal fluid collections are demonstrated. IMPRESSION: Impression: Normal left lower extremity deep venous Doppler examination.No evidence of DVT. -------- FINAL REPORT -------- Dictated By: Suzy Esparza Dictated Date: 05/03/2025 11:06 ET Assigned Physician: Suzy Esparza Reviewed and Electronically Signed By: Suzy Esparza Signed Date: 05/03/2025 11:07 ET Workstation ID: [id number] Transcribed By: Self Edit Transcribed Date: 05/03/2025 11:06 ET us Ben Aguilar MD CV VASCULAR PROC EDURES Final Result * (ABNORMAL) Lipid panel with reflex to direct LDL (05/03/2025 7:55 AM EDT) Cholesterol 248(H) 0 - 200 mg/dL LAB CHEMISTRY METHOD 05/03/2025 11:41 AM EDT [facility] Triglycerides 89 0 - 150 mg/dL LAB CHEMISTRY METHOD 05/03/2025 11:41 AM EDT [facility] HDL 64 >=40 mg/dL LAB CHEMISTRY METHOD 05/03/2025 11:41 AM EDT [facility] LDL Calculated 166(H) 0 - 100 mg/dL LAB CHEMISTRY METHOD 05/03/2025 11:41 AM EDT [facility] VLDL Cholesterol Isaias 17.8 mg/dL LAB CHEMISTRY METHOD 05/03/2025 11:41 AM EDT [facility] Non HDL Chol. (LDL+VLDL) 184(H) <145 mg/dL LAB CHEMISTRY METHOD 05/03/2025 11:41 AM EDT [facility] Chol/HDL Ratio 3.9 0.0 - 4.4 LAB CHEMISTRY METHOD 05/03/2025 11:41 AM EDT [facility] Blood Venous blood specimen / Unknown Venipuncture / Unknown 05/03/2025 7:55 AM EDT 05/03/2025 7:55 AM EDT Ben Aguilar MD LAB BLOOD ORDERA BLES Final Result [facility] [address] [place] [address], * Hemoglobin A1c (05/03/2025 7:55 AM EDT) Hemoglobin A1C 4.9 <6.5 % LAB CHEMISTRY METHOD 05/03/2025 2:06 PM EDT [facility] Mean Bld Glu Estim. 94 mg/dL LAB CHEMISTRY METHOD 05/03/2025 2:06 PM EDT [facility] Blood Venous blood specimen / Unknown Venipuncture / Unknown 05/03/2025 7:55 AM EDT 05/03/2025 7:55 AM EDT Ben Aguilar MD LAB BLOOD ORDERA BLES Final Result [facility] [address] [place] [address], [place] [phone] * Comprehensive metabolic panel (05/03/2025 7:55 AM EDT) Sodium 142 133 - 145 mmol/L LAB CHEMISTRY METHOD 05/03/2025 11:41 AM [facility] Potassium 3.8 3.5 - 5.5 mmol/L LAB CHEMISTRY METHOD 05/03/2025 11:41 AM [facility] Chloride 106 96 - 110 mmol/L LAB CHEMISTRY METHOD 05/03/2025 11:41 AM [facility] CO2 28 21 - 32 mmol/L LAB CHEMISTRY METHOD 05/03/2025 11:41 AM [facility] Anion Gap 8 3 - 11 LAB CHEMISTRY METHOD 05/03/2025 11:41 AM [facility] Glucose 86 70 - 100 mg/dL LAB CHEMISTRY METHOD 05/03/2025 11:41 AM [facility] BUN 15 5 - 25 mg/dL LAB CHEMISTRY METHOD 05/03/2025 11:41 AM [facility] Creatinine 0.60 0.50 - 1.10 mg/dL LAB CHEMISTRY METHOD 05/03/2025 11:41 AM [facility] eGFR 103 >=60 mL/min/1. 73m2 LAB CHEMISTRY METHOD 05/03/2025 11:41 AM [facility] Comment:Calculation based on the Chronic Kidney Disease Epidemiology Collaboration (CKD-EPI) equation refit without adjustment for race. BUN/Creatinine Ratio 25.0 LAB CHEMISTRY METHOD 05/03/2025 11:41 AM [facility] Calcium 9.4 8.5 - 10.5 mg/dL LAB CHEMISTRY METHOD 05/03/2025 11:41 AM T [facility] AST (SGOT) 24 10 - 42 unit/L LAB CHEMISTRY METHOD 05/03/2025 11:41 AM T [facility] ALT (SGPT) 31 10 - 60 unit/L LAB CHEMISTRY METHOD 05/03/2025 11:41 AM EDT [facility] Alkaline Phosphatase 72 42 - 121 unit/L LAB CHEMISTRY METHOD 05/03/2025 11:41 AM EDT [facility] Total Protein 6.8 6.0 - 8.0 g/dL LAB CHEMISTRY METHOD 05/03/2025 11:41 AM T [facility] Albumin 3.8 3.2 - 5.0 g/dL LAB CHEMISTRY METHOD 05/03/2025 11:41 AM [facility] Total Bilirubin 0.6 0.0 - 1.4 mg/dL LAB CHEMISTRY METHOD 05/03/2025 11:41 AM EDT [facility] Blood Venous blood specimen / Unknown Venipuncture / Unknown 05/03/2025 7:55 AM EDT 05/03/2025 7:55 AM EDT Ben Aguilar MD LAB BLOOD ORDERA BLES Final Result [facility] [address] [place] [address], [place] [phone] * MG Mammo Digital Screening w Trent bilat (03/29/2025 9:31 AM EDT) Anatomical Region Laterality Modality Breast Bilateral Mammography 03/29/2025 3:38 PM EDT Impressions 03/29/2025 3:44 PM EDT No mammographic evidence for malignancy. BI-RADS CATEGORY: 1 - NEGATIVE RECOMMENDATION: Screening bilateral mammogram is recommended in 1 year. Mammo Location: [facility], [address] [place] [address], [id number], . -------- FINAL REPORT -------- Dictated By: Yecenia Lepe Dictated Date: 03/29/2025 15:38 ET Assigned Physician: Yecenia Lepe Reviewed and Electronically Signed By: Yecenia Lepe Signed Date: 03/29/2025 15:44 ET Workstation ID: [id number] Transcribed By: Self Edit Transcribed Date: 03/29/2025 15:38 ET Narrative 03/29/2025 3:44 PM EDT Bilateral screening mammogram. CLINICAL: 59 years old, Female, routine annual exam. COMPARISON: Prior studies, latest from 03/16/2024 TECHNIQUE: Bilateral MLO and CC views were obtained digitally with the 2-D C views and 3-D mammogram (digital breast tomosynthesis) without and with implants displacement. Computer-aided detection was utilized in evaluation of this exam (CAD). FINDINGS: There is no evidence of suspicious mass or architectural distortion. No worrisome calcifications are evident. Implants are stable in appearance. There has been no significant change from prior exam(s). BREAST DENSITY: B - There are scattered areas of fibroglandular density. Procedure Note Yecenia Lepe MD - 03/29/2025 Bilateral screening mammogram. CLINICAL: 59 years old, Female, routine annual exam. COMPARISON: Prior studies, latest from 03/16/2024 TECHNIQUE: Bilateral MLO and CC views were obtained digitally with the 2-DC views and 3-D mammogram (digital breast tomosynthesis) without and withimplants displacement. Computer-aided detection was utilized in evaluationof this exam (CAD). FINDINGS: There is no evidence of suspicious mass or architectural distortion. Noworrisome calcifications are evident. Implants are stable in appearance.There has been no significant change from prior exam(s). BREAST DENSITY: B - There are scattered areas of fibroglandular density. IMPRESSION: No mammographic evidence for malignancy. BI-RADS CATEGORY: 1 - NEGATIVE RECOMMENDATION: Screening bilateral mammogram is recommended in 1 year. Mammo Location: [facility], [address] [place] [address], [id number], . -------- FINAL REPORT -------- Dictated By: Yecenia Lepe Dictated Date: 03/29/2025 15:38 ET Assigned Physician: Yecenia Lepe Reviewed and Electronically Signed By: Yecenia Lepe Signed Date: 03/29/2025 15:44 ET Workstation ID: [id number] Transcribed By: Self Edit Transcribed Date: 03/29/2025 15:38 ET Ben Aguilar MD IMG BI PROCEDURE S Final Result * Depression Screening (11/01/2023) Depression Screening abstracted Historical Provider HEALTH MAINTENANCE Final Result * Hepatitis C Screening (10/09/2019) Pathologist [facility]ly [facility], [facility]1983 Hepatitis C Screening abstracted Historical Provider HEALTH MAINTENANCE Final Result * Colonoscopy (06/18/2017) Colonoscopy no interpretation abstracted Anatomical Region Laterality Modality Other Result [facility] Historical Provider HEALTH MAINTENANCE Final Result * Pap Smear (03/25/2009) Pathologist [facility]ly [facility], [facility] Pap smear no interpretation abstracted Historical Provider HEALTH MAINTENANCE Final Result from Last 3 Months or Most Recently Relevant to Health Maintenance Insurance MEDICARE Member Subscriber Plan / Payer (Ef fective 2022-Present) Name:DELIA BEARD Member ID:[id number] Relation to Subscriber:Self Name:Delia Beard Subscriber ID:[id number] Payer ID:Not on file Group ID:Not on file Type:Medicare Address: [place] [phone] Care Teams Rotational Moulding Operator Relationship Specialty Start Date End Date Ben Aguilar MD [address] [facility], [place] PCP - General Internal Medicine 06/11/22
[2025-07-19 13:27] LABS: Baso%MD 0.9 %; Eos%MD 3.9 %; Hematocrit 41.6 % (37.0-47.0); Hemoglobin 13.5 g/dl (12.0-16.0); IG%MD 0.2 %; Lymph%MD 34.9 %; Mean Corpuscular HGB Conc 32.5 g/dl (31.0-35.0); Mean Corpuscular Hemoglobin 28.5 pg (27.0-33.0); Mean Corpuscular Volume 87.8 fL (80.0-98.0); Mono%MD 10.2 %; NRBC Abs Auto 0.000 X10*3/uL (0.0-0.012); NRBC Pct Auto 0.0 /100WBC (0.0-0.2); Neut%MD 49.9 %; Platelet Count 253 X10*3/uL (160-400); Red Blood Count 4.74 X10*6/uL (4.20-5.50); White Blood Count 4.6 X10*3/uL (4.8-10.8)
[2025-07-19 13:57] LABS: Alanine Aminotransferase 22 U/L (0-31); Aspartate Amino Transferase 29 U/L (5-31); Estimated Glomerular Filt Rate > 60
[2025-07-19 15:30] LABS: Atypical Lymph Absolute Manual 0.1 x10*3/uL; Atypical Lymphs Percent Manual 3 % (0-6); Eosinophils Absolute Manual 0.2 X10*3/uL (0.0-0.4); Eosinophils Percent Manual 5 % (0-4); Lymphocytes Absolute Manual 1.6 X10*3/uL (1.2-4.9); Lymphocytes Percent Manual 35 % (20-40); Monocytes Absolute Manual 0.3 X10*3/uL (0.1-1.2); Monocytes Percent Manual 7 % (2-11); Neutrophils Percent Manual 50 % (45-73)
[2025-07-19 15:31] LABS: Burr Cells 1+ (0-2) /OIF; Large Platelet PRESENT; Ovalocytes 1+ (5-14) /OIF; RBC Morphology NOTED
[2025-07-19 16:12] LABS: Band Neutrophils Percent 0 % (3-5); Neutrophils Absolute Manual 2.3 X10*3/uL (2.0-8.3)
== END 2025-07-19 09:35 | disposition home or self-care (01) ==
LOC: HO.HKASLDS 09:34
PROVIDERS: Visit Provider Internal Medicine Rheumatology
DX: Z79.899 Other long term (current) drug therapy (principal)
CPT/HCPCS: 36415; 82565; 84450; 84460; 85007; 85027; 85652; 86140

== ENCOUNTER 2025-07-22 13:01 | Outpatient (AMB) | payer MEDICARE, SELFPAY ==
--- NOTE | 2025-07-22 13:07 | A.OFFVIS_ITS ---
Vital Signs 07/22/25 13:08 Height 5 ft 2 in BP 128/80 Blood Pressure Location Lt brachial Position Sitting Pulse 79 Pulse Source Pulse Oximeter Pulse Oximetry (%) 98 Oxygen Delivery Method Room Air Intake Visit Reasons: 3mo/right knee cortisone injection Intake Note: Patient presents for follow up on labs. Allergies No Known Allergies (No Known Allergies*) Allergy (Verified 07/22/25 13:07) HPI HPI 3mo/right knee cortisone injection: Details: Next saturday she is having surgery to repair broken stabalizer pins. She was told to stop all her medications today. She did not take her methotrexate on Saturday. [facility] Medical History History of reverse total replacement of both shoulders Surgical History S/P foot surgery, left H/O bilateral hip replacements History of knee replacement procedure of left knee Bariatric surgery status History of spinal fusion Carpal tunnel syndrome of right wrist Carpal tunnel syndrome of left wrist History of arthroscopy of left knee Social History Alcohol intake: current Alcohol intake frequency: a few times a week Alcohol type: hard liquor Patient Tobacco Use Status: Never used Tobacco Current occupational status: disabled Physical Exam Vital Signs: Last Vital Signs Pulse 79 07/22/25 13:08 BP 128/80 07/22/25 13:08 Pulse Ox 98 07/22/25 13:08 Oxygen Delivery Method Room Air 07/22/25 13:08 Const Other: General: Comfortable CVS: RRR Respiratory: clear to auscultation bilaterally. Good respiratory effort Skin: No lesions seen MSK: Tender left wrists with mild synovitis. Bilateral 2nd MCPs in right 5th chronic synovial thickening present without tenderness. PIP bilateral tender. Shoulder abduction 160 degrees bilateral. Good internal external rotation of bilateral shoulders. Mild to moderate right knee effusion with warmth. Tender right knee on palpation. Normal range of motion of elbows. Normal range of motion of lower extremities. Office Procedures AMB Joint Injection/Aspiration Joint Injection/Aspiration Details: Right knee joint Prep: site was prepped using aseptic technique Injected: 40 mg of, Kenalog, with 1 mL of and 1% plain lidocaine Procedure: Informed verbal consent was obtained. The patient tolerated the procedure well. Postprocedure protocol was discussed with patient. Coding 75820 - Large joint Procedure code (CPT) selection complete Office Meds lidocaine (PF) 10 mg/mL (1 %) injection solution Performing Provider: Antonino Linn MD Performing Location: [facility] Administered by: Yu Krause RN on 07/22/25 13:32 Dose Route Admin Location Dispensed Lot Number Expiration Date [facility] Location Manager 1 mL Infiltration 2 mL [id number] 02/22/27 23591-576-77 [facility] Total Dispensed Waste 2 mL 50 % Kenalog 40 mg/mL suspension for injection Performing Provider: Antonino Linn MD Performing Location[facility] Administered by: Yu Krause RN on 07/22/25 13:32 Dose Route Admin Location Dispensed Lot Number Expiration Date [facility] Location Manager 40 mg intra-articular 1 mL [id number] 04/24/27 [address]-8 [employer] Total Dispensed Waste 1 mL 0 % Assessment & Plan Assessment & Plan (1) Rheumatoid arthritis: Comment: She continues to have synovitis in multiple joints in hands and left wrist on current regimen. At this time her pain is manageable. She is planning to have revision of left foot with replacement of broken hardware with plates and screws next Saturday. She was told today to stop all her medications. She is at risk for developing progression of uncontrolled RA with discontinuing DMARD therapy. If RA becomes more uncontrolled, she will require prednisone therapy, which will increase risk of infection and delay healing postop. I have placed a call to her orthopedic surgeon to discuss continuing DMARD therapy during surgery. Rheumatology history: Seropositive (RF 19). MTX 09/2022-. She has been on HCQ. Methotrexate is contributing to loose stools but tolerable. Code(s): M06.9 - Rheumatoid arthritis, unspecified Category: Medical Qualifiers: Rheumatoid arthritis location: multiple sites Rheumatoid factor presence: with rheumatoid factor Qualified Code(s): M05.79 - Rheumatoid arthritis with rheumatoid factor of multiple sites without organ or systems involvement Plan: Continue hydroxychloroquine 400 mg daily. OCT and visual field eye exam 10/14/2025 up-to-date Continue leflunomide 20 mg daily Continue methotrexate 20 mg once weekly Continue folic acid 1 mg daily Labs for drug monitoring on high-risk medication up-to-date. She has intermittent mild leukopenia, which I am monitoring. 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) drug therapy: Code(s): Z79.899 - Other termite control technician (current) drug therapy Category: Medical Plan: See above (3) Osteoarthritis of right knee: Code(s): M17.11 - Unilateral primary osteoarthritis, right knee Category: Medical Plan: Patient received right knee cortisone injection this visit Return to clinic in 3 months or sooner if needed Orders: Orders AMB Joint Injection/Aspiration Today M17.11 - Unilateral primary osteoarthritis, right knee Coding Level of Care Code Est Pt Level 4 (35747) Complex EM visit Add On G2211 Diagnoses Rheumatoid arthritis involving multiple sites with positive rheumatoid factor M05.79 Rheumatoid arthritis location: multiple sites Rheumatoid factor presence: with rheumatoid factor Other termite control technician (current) drug therapy Z79.899 Osteoarthritis of right knee M17.11 CPT Codes Coding - 71836 Large joint: 58581 - Large joint ([id number])
[2025-07-22 13:08] VITALS: BP 128/80; PULSE 79; O2SAT 98
--- OUTSIDE RECORDS SUMMARY | 2025-07-22 13:38 | XMS_ITS | Encounter Summary ---
Author Organization [facility] Address [address] [place] [address] Care Team Providers Care Buffer Machine Name Role Phone Brandon Anguiano MD Unavailable Ben Aguilar MD Primary Care Provider + Encounter Details Date Type Department Care Team Description 07/01/2023 Sales Trainer Report Medical Records [address] [place] [id number] Maurice Azul PA-C Social History Tobacco Use Types Packs/Day Years Used Date Smoking Tobacco: Former Cigarettes Q uit: 11/25/1986 Smokeless Tobacco: Never Comments:x 20 years Alcohol Use Standard Drinks/Week Comments Yes 0 (1 standard drink = 0.6 oz pur e alcohol) 2 drinks about 3x/wk Sex Assigned at Date Recorded Female 05/16/2024 12:57 PM EDT Job Start Date Occupation Industry Not on file Not on file Not on file documented as of this encounter Plan of Treatment Not on file documented as of this encounter Visit Diagnoses Not on filedocumented in this encounter Care Teams Buffer Machine Relationship Specialty Start Date End Date Ben Aguilar MD [address] [place] [address] PCP - General Internal Medicine 06/11/22 Brandon Anguiano MD Specialist Cardiovascular Disease 07/17/21 documented as of this encounter
--- OUTSIDE RECORDS SUMMARY | 2025-07-22 13:38 | XMS_ITS | Encounter Summary ---
Author Organization [facility] Address [address] [place] [address] Care Team Providers Care Glue Sprayer Name Role Phone Jah Batista MD Primary Care Provider Unavail able Mik Macias MD Primary Care Provider Unavailab Jah Rousseau MD Primary Care Provider Unavail able Regine Serrano MD Primary Care Provider Robyn Jonny Cook PA-C Primary Care Provider Unavail able Brandon Anguiano MD Unavailable Chely Acuña MD Primary Care Provider [phone] Ben Aguilar MD Primary Care Provider + Encounter Details Date Type Department Care Team Description 01/31/2015 Digital Program Manager Report Medical Records [address] [place] [address] Allan Anand MD Social History Tobacco Use Types Packs/Day Years Used Date Smoking Tobacco: Former Smokeless Tobacco: Never Comments:x 20 years Alcohol Use Standard Drinks/Week Comments Yes 0 (1 standard drink = 0.6 oz pur e alcohol) social Sex Assigned at Date Recorded Female 05/16/2024 12:57 PM EDT Job Start Date Occupation Industry Not on file Not on file Not on file documented as of this encounter Plan of Treatment Not on file documented as of this encounter Visit Diagnoses Not on filedocumented in this encounter Care Teams Glue Sprayer Relationship Specialty Start Date End Date Jah Batista MD PCP - General 11/13/04 06/14/16 Mik Macias MD PCP - General Family Practice 06/15/16 07/17/16 Jah Batista MD PCP - General Internal Medicine 07/18/16 10/07/17 Regine Serrano MD PCP - General Internal Medicine 10/08/17 06/25/21 Jonny Giron PA-C PCP - General Med/Peds 06/26/21 02/01/22 Chely Acuña MD [address] [place] [phone] PCP - General Internal Medicine 02/02/22 06/10/22 Ben Aguilar MD [address] [place] [address] PCP - General Internal Medicine 06/11/22 Brandon Anguiano MD Specialist Cardiovascular Disease 07/17/21 documented as of this encounter
--- OUTSIDE RECORDS SUMMARY | 2025-07-22 13:38 | XMS_ITS | Encounter Summary ---
Author Organization [facility] Address [address] [place] [address] Care Team Providers Care Garment Sewing Machine Operator Name Role Phone Regine Serrano MD Primary Care Provider Robyn Jonny Cook PA-C Primary Care Provider Unavail able Brandon Anguiano MD Unavailable Chely Acuña MD Primary Care Provider [phone] Ben Aguilar MD Primary Care Provider + Encounter Details Date Type Department Care Team Description 02/15/2020 Hospital Medical Records [address] [place] [phone] Piero Mesa MD Social History Tobacco Use Types Packs/Day Years Used Date Smoking Tobacco: Former Cigarettes Q uit: 11/25/1986 Smokeless Tobacco: Never Comments:x 20 years Alcohol Use Standard Drinks/Week Comments Yes 0 (1 standard drink = 0.6 oz pur e alcohol) socially Sex Assigned at Date Recorded Female 05/16/2024 12:57 PM EDT Job Start Date Occupation Industry Not on file Not on file Not on file documented as of this encounter Plan of Treatment Not on file documented as of this encounter Visit Diagnoses Not on filedocumented in this encounter Care Teams Garment Sewing Machine Operator Relationship Specialty Start Date End Date Regine Serrano MD PCP - General Internal Medicine 10/08/17 06/25/21 Jonny Giron PA-C PCP - General Med/Peds 06/26/21 02/01/22 Chely Acuña MD [address] [place] [phone] PCP - General Internal Medicine 02/02/22 06/10/22 Ben Aguilar MD [address] [place] [phone] PCP - General Internal Medicine 06/11/22 Brandon Anguiano MD Specialist Cardiovascular Disease 07/17/21 documented as of this encounter
--- OUTSIDE RECORDS SUMMARY | 2025-07-22 13:38 | XMS_ITS | Encounter Summary ---
Author Organization [facility] Address [address] [place] [address] Care Team Providers Care Financial Center Manager Name Role Phone Regine Serrano MD Primary Care Provider Robyn Jonny Cook PA-C Primary Care Provider Unavail able Brandon Anguiano MD Unavailable Chely Acuña MD Primary Care Provider [phone] Ben Aguilar MD Primary Care Provider + Encounter Details Date Type Department Care Team Description 09/19/2020 SCAN Medical Records [address] [place] [address] Mik Dotson Social History Tobacco Use Types Packs/Day Years [...] on file documented as of this encounter Procedures Procedure Name Priority Date/Time Associated Diagnosis Comments OUTSIDE LAB Routine 09/19/2020 documented in this encounter Results * OUTSIDE LAB (09/19/2020) Provider Default LAB documented in this encounter Visit Diagnoses Not on filedocumented in this encounter Care Teams Financial Center Manager Relationship Specialty Start Date End Date Regine Serrano MD PCP - General Internal Medicine 10/08/17 06/25/21 Jonny Giron PA-C PCP - General Med/Peds 06/26/21 02/01/22 Chely Acuña MD [address] [place] [address] PCP - General Internal Medicine 02/02/22 06/10/22 Ben Aguilar MD [address] [place] [address] PCP - General Internal Medicine 06/11/22 Brandon Anguiano MD Specialist Cardiovascular Disease 07/17/21 documented as of this encounter
--- OUTSIDE RECORDS SUMMARY | 2025-07-22 13:38 | XMS_ITS | Encounter Summary ---
Author Organization [facility] Address [address] [place] [address] Care Team Providers Care Assistant Manager Quality Management Name Role Phone Regine Serrano MD Primary Care Provider Robyn Jonny Cook PA-C Primary Care Provider Unavail able Brandon Anguiano MD Unavailable Chely Acuña MD Primary Care Provider [phone] Ben Aguilar MD Primary Care Provider + Encounter Details Date Type Department Care Team Description 02/23/2020 Pt. Non Urgent Medical Question Medicine/Pediatrics - [address] [phone] Jonny Giron PA-C Social History Tobacco Use Types Packs/Day [...] on file documented as of this encounter Progress Notes * Marissa Rubio R.N. - 02/24/2020 7:48 AM EDTFrom: Delia Baldwin To: Jonny Giron PA-C Sent: 02/23/2020 6:29 PM EDT Subject: Gabapentin Aashish Fuller. Letting you kno my neck surgery went well. The gabapentin has tremendously not only with my neck but with my right shoulder and arm pain. As the neurosurgeon said it probably was. I've beentaking it 3 times a day. Could you please continue my RX as such? Please let me kno if this is a problem. Christina Lin documented in this encounter Plan of Treatment Not on file documented as of this encounter Visit Diagnoses Not on filedocumented in this encounter Care Teams Assistant Manager Quality Management Relationship Specialty Start Date End Date Regine Serrano MD PCP - General Internal Medicine 10/08/17 06/25/21 Jonny Giron PA-C PCP - General Med/Peds 06/26/21 02/01/22 Chely Acuña MD [address] [place] [phone] PCP - General Internal Medicine 02/02/22 06/10/22 Ben Aguilar MD [address] [place] [address] PCP - General Internal Medicine 06/11/22 Brandon Anguiano MD Specialist Cardiovascular Disease 07/17/21 documented as of this encounter
--- OUTSIDE RECORDS SUMMARY | 2025-07-22 13:38 | XMS_ITS | Encounter Summary ---
Author Organization [facility] Address [address] [place] [address] Care Team Providers Care Playground Official Name Role Phone Jonny Giron PA-C Primary Care Provider Unavail able Brandon Anguiano MD Unavailable Chely Acuña MD Primary Care Provider Ben Aguilar MD Primary Care Provider + Encounter Details Date Type Department Care Team Description 06/26/2021 Pt. Non Urgent Medical Question Medicine/Pediatrics - [address] [phone] Jonny Giron PA-C Social History Tobacco Use [...] on file documented as of this encounter Miscellaneous Notes * Telephone Encounter - Frannie Mcgarry M.A. - 06/26/2021 3:20 PM EDTFrom: Delia Baldwin To: Joey Giron Sent: 06/26/2021 2:57 PM EDT Subject: New dr? Aashish Fuller I understand Dr. Serrano will no longer be practicing at [facility] however in choosing a new doctor where are you going for your position are you still going to PA with another doctor I wouldlike to know I feel comfortable working with you and I would like to continue that if possible thanks Delia Baldwin documented in this encounter Plan of Treatment Not on file documented as of this encounter Visit Diagnoses Not on filedocumented in this encounter Care Teams Playground Official Relationship Specialty Start Date End Date Jonny Giron PA-C PCP - General Med/Peds 06/26/21 02/01/22 Chely Acuña MD [address] [place] [phone] PCP - General Internal Medicine 02/02/22 06/10/22 Ben Aguilar MD [address] [place] [phone] PCP - General Internal Medicine 06/11/22 Brandon Anguiano MD Specialist Cardiovascular Disease 07/17/21 documented as of this encounter
--- OUTSIDE RECORDS SUMMARY | 2025-07-22 13:38 | XMS_ITS | Encounter Summary ---
Author Organization [facility] Address [address] [place] [address] Care Team Providers Care Lap Maker Name Role Phone Regine Serrano MD Primary Care Provider Robyn Jonny Cook PA-C Primary Care Provider Unavail able Brandon Anguiano MD Unavailable Chely Acuña MD Primary Care Provider [phone] Ben Aguilar MD Primary Care Provider + Encounter Details Date Type Department Care Team Description 10/14/2017 Cafe Helper Report Medical Records [address] [place] [address] Pedro Pablo Benjamin MD Social History Tobacco Use Types Packs/Day [...] on filedocumented in this encounter Care Teams Lap Maker Relationship Specialty Start Date End Date Regine Serrano MD PCP - General Internal Medicine 10/08/17 06/25/21 Jonny Giron PA-C PCP - General Med/Peds 06/26/21 02/01/22 Chely Acuña MD [address] [place] [phone] PCP - General Internal Medicine 02/02/22 06/10/22 Ben Aguilar MD [address] [place] [address] PCP - General Internal Medicine 06/11/22 Brandon Anguiano MD Specialist Cardiovascular Disease 07/17/21 documented as of this encounter
--- OUTSIDE RECORDS SUMMARY | 2025-07-22 13:38 | XMS_ITS | Encounter Summary ---
Author Organization [facility] Address [address] [place] [address] Care Team Providers Care Steamtable Attendant Railroad Name Role Phone Jah Batista MD Primary Care Provider Unavail able Mik Macias MD Primary Care Provider Unavailab Jah Rousseau MD Primary Care Provider Unavail able Regine Serrano MD Primary Care Provider Robyn Jonny Cook PA-C Primary Care Provider Unavail able Brandon Anguiano MD Unavailable Chely Acuña MD Primary Care Provider [phone] Ben Aguilar MD Primary Care Provider + Encounter Details Date Type Department Care Team Description 10/02/2010 Residential Sales Associate Report Medical Records [address] [place] [phone] Fabien Clark MD Social History Tobacco Use Types Packs/Day Years Used Date Smoking Tobacco: Former Comments:x 20 years Alcohol Use Standard Drinks/Week [...] on filedocumented in this encounter Care Teams Steamtable Attendant Railroad Relationship Specialty Start Date End Date Jah Batista MD PCP - General 11/13/04 06/14/16 Mik Macias MD PCP - General Family Practice 06/15/16 07/17/16 Jah Batista MD PCP - General Internal Medicine 07/18/16 10/07/17 Regine Serrano MD PCP - General Internal Medicine 10/08/17 06/25/21 Jonny Giron PA-C PCP - General Med/Peds 06/26/21 02/01/22 Chely Acuña MD [address] [place] [address] [phone] PCP - General Internal Medicine 02/02/22 06/10/22 Ben Aguilar MD [address] [place] [address] PCP - General Internal Medicine 06/11/22 Brandon Anguiano MD Specialist Cardiovascular Disease 07/17/21 documented as of this encounter
--- OUTSIDE RECORDS SUMMARY | 2025-07-22 13:38 | XMS_ITS | Encounter Summary ---
Author Organization [facility] Address [address] [place] [address] Care Team Providers Care Test Inspection Engineer Name Role Phone Jah Batista MD Primary Care Provider Unavail able Mik Macias MD Primary Care Provider Unavailab Jah Rousseau MD Primary Care Provider Unavail able Regine Serrano MD Primary Care Provider Robyn Jonny Cook PA-C Primary Care Provider Unavail able Brandon Anguiano MD Unavailable Chely Acuña MD Primary Care Provider [phone] Ben Aguilar MD Primary Care Provider + Reason for Visit * Reason Onset Date Comments TEST RESULTS 01/12/2016 Encounter Details Date Type Department Care Team Description 01/12/2016 Telephone Adult Medicine [address] [address] Jah Batista MD TEST RESULTS Social History Tobacco Use Types Packs/Day Years Used Date Smoking Tobacco: Former Cigarettes Q uit: 11/25/1986 Smokeless Tobacco: Never Comments:x 20 years Alcohol Use Standard Drinks/Week Comments Yes 0 (1 standard drink = 0.6 oz pur e alcohol) 2 drinks per month Sex Assigned at Date Recorded Female 05/16/2024 12:57 PM EDT Job Start Date Occupation Industry Not on file Not on file Not on file documented as of this encounter Miscellaneous Notes * Telephone Encounter - Keya Elkins M.A. - 01/12/2016 1:42 PM EST Spoke with the pt and advise. There is no final on urine culture. There are no sensitivities on theurine, but the organism is E.coli. ? Wait for sensitivities to come back or treat. Please review and advise. * Telephone Encounter - Vidhi Robison - 01/12/2016 1:07 PM EST Inform patient: ANY URGENT OR ABNORMAL RESULTS WIILL RESULT IN A CALL BACK TO THE PATIENT RENETTA. Type of test: : Urine Culture Date test was performed: 01/11/16 Where was the test performed: [facility] Who ordered this test?: Yasmine Boyer Is the doctor here today?: YES Can the message wait until the doctor returns?: NO IF PATIENT'S PCP IS NOT IN INSTRUCT PATIENT THAT THEY WILL RECEIVE A CALL BACK WHEN THE PCP IS IN THE OFFICE NEXT. documented in this encounter Plan of Treatment Not on file documented as of this encounter Visit Diagnoses Not on filedocumented in this encounter Care Teams Test Inspection Engineer Relationship Specialty Start Date End Date Jah Batista MD PCP - General 11/13/04 06/14/16 Mik Macias MD PCP - General Family Practice 06/15/16 07/17/16 Jah Batista MD PCP - General Internal Medicine 07/18/16 10/07/17 Regine Serrano MD PCP - General Internal Medicine 10/08/17 06/25/21 Jonny Giron PA-C PCP - General Med/Peds 06/26/21 02/01/22 Chely Acuña MD [address] [place] [phone] PCP - General Internal Medicine 02/02/22 06/10/22 Ben Aguilar MD [address] [place] [phone] PCP - General Internal Medicine 06/11/22 Brandon Anguiano MD Specialist Cardiovascular Disease 07/17/21 documented as of this encounter
--- OUTSIDE RECORDS SUMMARY | 2025-07-22 13:38 | XMS_ITS | Encounter Summary ---
Author Organization [facility] Address [address] [place] [address] Care Team Providers Care Music Professor Name Role Phone Regine Serrano MD Primary Care Provider Robyn Jonny Cook PA-C Primary Care Provider Unavail able Brandon Anguiano MD Unavailable Chely Acuña MD Primary Care Provider [phone] Ben Aguilar MD Primary Care Provider + Encounter Details Date Type Department Care Team Description 03/15/2020 Miner Helper Report Medical Records [address] [place] [address] 38370 Piero Mesa MD Social History Tobacco Use [...] on filedocumented in this encounter Care Teams Music Professor Relationship Specialty Start Date End Date Regine Serrano MD PCP - General Internal Medicine 10/08/17 06/25/21 Jonny Giron PA-C PCP - General Med/Peds 06/26/21 02/01/22 Chely Acuña MD [address] [place] [address] [phone] PCP - General Internal Medicine 02/02/22 06/10/22 Ben Aguilar MD [address] [place] [address] 15721 PCP - General Internal Medicine 06/11/22 Brandon Anguiano MD Specialist Cardiovascular Disease 07/17/21 documented as of this encounter
--- OUTSIDE RECORDS SUMMARY | 2025-07-22 13:38 | XMS_ITS | Encounter Summary ---
Author Organization [facility] Address [address] [place] [address] Care Team Providers Care Brine Plant Operator Name Role Phone Regine Serrano MD Primary Care Provider Robyn Jonny Cook PA-C Primary Care Provider Unavail able Brandon Anguiano MD Unavailable Chely Acuña MD Primary Care Provider [phone] Ben Aguilar MD Primary Care Provider + Encounter Details Date Type Department Care Team Description 10/31/2017 Home Health Certification Medical Records [address] [place] [address] [id number] Social History Tobacco Use Types Packs/Day Years [...] on filedocumented in this encounter Care Teams Brine Plant Operator Relationship Specialty Start Date End Date Regine Serrano MD PCP - General Internal Medicine 10/08/17 06/25/21 Jonny Giron PA-C PCP - General Med/Peds 06/26/21 02/01/22 Chely Acuña MD [address] [place] [address] [id number] PCP - General Internal Medicine 02/02/22 06/10/22 Ben Aguilar MD [address] [place] [address] 11836 PCP - General Internal Medicine 06/11/22 Brandon Anguiano MD Specialist Cardiovascular Disease 07/17/21 documented as of this encounter
--- OUTSIDE RECORDS SUMMARY | 2025-07-22 13:38 | XMS_ITS | Encounter Summary ---
Author Organization [facility] Address [address] [place] [address] Care Team Providers Care Coat Tailor Name Role Phone Jah Batista MD Primary Care Provider Unavail able Mik Macias MD Primary Care Provider Unavailab Jah Rousseau MD Primary Care Provider Unavail able Regine Serrano MD Primary Care Provider Robyn Jonny Cook PA-C Primary Care Provider Unavail able Brandon Anguiano MD Unavailable Chely Acuña MD Primary Care Provider [phone] Ben Aguilar MD Primary Care Provider + Encounter Details Date Type Department Care Team Description 01/25/2015 Lining Sewer Report Medical Records [address] [place] [phone] Francisco Jhaveri MD [address] [place] [address] [place] [address] Social History Tobacco Use Types Packs/Day Years [...] on filedocumented in this encounter Care Teams Coat Tailor Relationship Specialty Start Date End Date Jah Batista MD PCP - General 11/13/04 06/14/16 Mik Macias MD PCP - General Family Practice 06/15/16 07/17/16 Jah Batista MD PCP - General Internal Medicine 07/18/16 10/07/17 Regine Serrano MD PCP - General Internal Medicine 10/08/17 06/25/21 Jonny Giron PA-C PCP - General Med/Peds 06/26/21 02/01/22 Chely Acuña MD [address] [place] [address] [phone] PCP - General Internal Medicine 02/02/22 06/10/22 Ben Aguilar MD [address] [place] [address] PCP - General Internal Medicine 06/11/22 Brandon Anguiano MD Specialist Cardiovascular Disease 07/17/21 documented as of this encounter
--- OUTSIDE RECORDS SUMMARY | 2025-07-22 13:38 | XMS_ITS | Encounter Summary ---
Author Organization [facility] Address [address] [place] [address] Care Team Providers Care Division Sales Manager Name Role Phone Jah Batista MD Primary Care Provider Unavail able Regine Serrano MD Primary Care Provider Jonny Mayfield PA-C Primary Care Provider Unavail able Brandon Anguiano MD Unavailable Chely Acuña MD Primary Care Provider [phone] Ben Aguilar MD Primary Care Provider + Encounter Details Date Type Department Care Team Description 08/15/2016 [facility] Medical Records [address] [place] [phone] Abstract, Provider Social History Tobacco Use Types Packs/Day Years [...] on filedocumented in this encounter Care Teams Division Sales Manager Relationship Specialty Start Date End Date Jah Batista MD PCP - General Internal Medicine 07/18/16 10/07/17 Regine Serrano MD PCP - General Internal Medicine 10/08/17 06/25/21 Jonny Giron PA-C PCP - General Med/Peds 06/26/21 02/01/22 Chely Acuña MD [address] [place] [address] [phone] PCP - General Internal Medicine 02/02/22 06/10/22 Ben Aguilar MD [address] [place] [address] [phone] PCP - General Internal Medicine 06/11/22 Brandon Anguiano MD Specialist Cardiovascular Disease 07/17/21 documented as of this encounter
--- OUTSIDE RECORDS SUMMARY | 2025-07-22 13:38 | XMS_ITS | Encounter Summary ---
Author Organization [facility] Address [address] [place] [address] Care Team Providers Care Lab Support Service Tech Name Role Phone Jah Batista MD Primary Care Provider Unavail Regine Sauceda MD Primary Care Provider Robyn Jonny Cook PA-C Primary Care Provider Unavail able Brandon Anguiano MD Unavailable Chely Acuña MD Primary Care Provider [phone] Ben Aguilar MD Primary Care Provider + Reason for Visit * Reason Onset Date Comments TEST RESULTS 08/12/2017 Encounter Details Date Type Department Care Team Description 08/12/2017 Telephone Adult Medicine - [address] [address] Karol Gurrola PA-C [address] [place] [id number] TEST RESULTS Social History Tobacco Use Types [...] encounter Miscellaneous Notes * Telephone Encounter - Alyssa Mckinnon MA. - 08/12/2017 4:50 PM EDT ----- Message from Karlo Gurrola PA-C sent at 08/12/2017 4:13 PM EDT ----- let patient know SHE needs to come to the lab to have urine rechecked. Urine done today demonstrated white blood cells and bacteria. Possible UTI. We need culture to confirm. This was ordered. * Telephone Encounter - Alyssa Mckinnon MA. - 08/12/2017 4:36 PM EDT Left message for pt to call back. Please transfer to [phone] * Telephone Encounter - Alyssa Mckinnon MA. - 08/12/2017 4:36 PM EDT ----- Message from Karol Gurrola PA-C sent at 08/12/2017 4:13 PM EDT ----- let patient know SHE needs to come to the lab to have urine rechecked. Urine done today demonstrated white blood cells and bacteria. Possible UTI. We need culture to confirm. This was ordered. documented in this encounter Plan of Treatment Not on file documented as of this encounter Visit Diagnoses Not on filedocumented in this encounter Care Teams Lab Support Service Tech Relationship Specialty Start Date End Date Jah Batista MD PCP - General Internal Medicine 07/18/16 10/07/17 Regine Serrano MD PCP - General Internal Medicine 10/08/17 06/25/21 Jonny Giron PA-C PCP - General Med/Peds 06/26/21 02/01/22 Chely Acuña MD [address] [place] [address] 11896 PCP - General Internal Medicine 02/02/22 06/10/22 Ben Aguilar MD [address] [place] [phone] PCP - General Internal Medicine 06/11/22 Brandon Anguiano MD Specialist Cardiovascular Disease 07/17/21 documented as of this encounter
--- OUTSIDE RECORDS SUMMARY | 2025-07-22 13:38 | XMS_ITS | Encounter Summary ---
Author Organization [facility] Address [address] [place] [address] Care Team Providers Care Surveillance Specialist Name Role Phone Jah Batista MD Primary Care Provider Unavail able Regine Serrano MD Primary Care Provider Jonny Mayfield PA-C Primary Care Provider Unavail able Brandon Anguiano MD Unavailable Chely Acuña MD Primary Care Provider Ben Aguilar MD Primary Care Provider + Encounter Details Date Type Department Care Team Description 09/26/2017 [facility] Medical Records [address] [place] [address] Abstract, Provider Social History Tobacco Use Types [...] on filedocumented in this encounter Care Teams Surveillance Specialist Relationship Specialty Start Date End Date Jah Batista MD PCP - General Internal Medicine 07/18/16 10/07/17 Regine Serrano MD PCP - General Internal Medicine 10/08/17 06/25/21 Jonny Giron PA-C PCP - General Med/Peds 06/26/21 02/01/22 Chely Acuña MD [address] [place] [address] [phone] PCP - General Internal Medicine 02/02/22 06/10/22 Ben Aguilar MD [address] [place] [phone] PCP - General Internal Medicine 06/11/22 Brandon Anguiano MD Specialist Cardiovascular Disease 07/17/21 documented as of this encounter
--- OUTSIDE RECORDS SUMMARY | 2025-07-22 13:38 | XMS_ITS | Encounter Summary ---
Author Organization [facility] Address [address] [place] [address] Care Team Providers Care Agricultural Scientist Name Role Phone Regine Serrano MD Primary Care Provider Robyn Jonny Cook PA-C Primary Care Provider Unavail able Brandon Anguiano MD Unavailable Chely Acuña MD Primary Care Provider [phone] Ben Aguilar MD Primary Care Provider + Encounter Details Date Type Department Care Team Description 02/03/2018 Septic Tank Cleaner Report Medical Records [address] [place] [address] Abstract, Provider Social History Tobacco Use Types [...] on filedocumented in this encounter Care Teams Agricultural Scientist Relationship Specialty Start Date End Date Regine Serrano MD PCP - General Internal Medicine 10/08/17 06/25/21 Jonny Giron PA-C PCP - General Med/Peds 06/26/21 02/01/22 Chely Acuña MD [address] [place] [address] [phone] PCP - General Internal Medicine 02/02/22 06/10/22 Ben Aguilar MD [address] [place] [address] PCP - General Internal Medicine 06/11/22 Brandon Anguiano MD Specialist Cardiovascular Disease 07/17/21 documented as of this encounter
--- OUTSIDE RECORDS SUMMARY | 2025-07-22 13:38 | XMS_ITS | Encounter Summary ---
Author Organization [facility] Address [address] [place] [address] Care Team Providers Care Environmental Monitoring Technician Name Role Phone Regine Serrano MD Primary Care Provider Robyn Jonny Cook PA-C Primary Care Provider Unavail able Brandon Anguiano MD Unavailable Chely Acuña MD Primary Care Provider [phone] Ben Aguilar MD Primary Care Provider + Encounter Details Date Type Department Care Team Description 07/04/2020 Paving Foreman Report Medical Records [address] [place] [address] Allan Anand MD Social History Tobacco Use [...] on filedocumented in this encounter Care Teams Environmental Monitoring Technician Relationship Specialty Start Date End Date Regine Serrano MD PCP - General Internal Medicine 10/08/17 06/25/21 Jonny Giron PA-C PCP - General Med/Peds 06/26/21 02/01/22 Chely Acuña MD [address] [place] [address] [phone] PCP - General Internal Medicine 02/02/22 06/10/22 Ben Aguilar MD [address] [place] [address]39 PCP - General Internal Medicine 06/11/22 Brandon Anguiano MD Specialist Cardiovascular Disease 07/17/21 documented as of this encounter
--- OUTSIDE RECORDS SUMMARY | 2025-07-22 13:38 | XMS_ITS | Encounter Summary ---
Author Organization [facility] Address [address] [place] [address] Care Team Providers Care Edge Inker Uppers Name Role Phone Regine Serrano MD Primary Care Provider Robyn Jonny Cook PA-C Primary Care Provider Unavail able Brandon Anguiano MD Unavailable Chely Acuña MD Primary Care Provider [phone] Ben Aguilar MD Primary Care Provider + Encounter Details Date Type Department Care Team Description 10/15/2017 Tax Evaluator Report Medical Records [address] [place] [address]805 Abstract, Provider Social History Tobacco Use Types [...] on filedocumented in this encounter Care Teams Edge Inker Uppers Relationship Specialty Start Date End Date Regine Serrano MD PCP - General Internal Medicine 10/08/17 06/25/21 Jonny Giron PA-C PCP - General Med/Peds 06/26/21 02/01/22 Chely Acuña MD [address] [place] [address] [phone] PCP - General Internal Medicine 02/02/22 06/10/22 Ben Aguilar MD [address] [place] [phone] PCP - General Internal Medicine 06/11/22 Brandon Anguiano MD Specialist Cardiovascular Disease 07/17/21 documented as of this encounter
--- OUTSIDE RECORDS SUMMARY | 2025-07-22 13:38 | XMS_ITS | Encounter Summary ---
Author Organization [facility] Address [address] [place] [address] Care Team Providers Care Can Worker Name Role Phone Jah Batista MD Primary Care Provider Unavail able Mik Macias MD Primary Care Provider Unavailab Jah Rousseau MD Primary Care Provider Unavail able Regine Serrano MD Primary Care Provider Robyn Jonny Cook PA-C Primary Care Provider Unavail able Brandon Anguiano MD Unavailable Chely Acuña MD Primary Care Provider [phone] Ben Aguilar MD Primary Care Provider + Encounter Details Date Type Department Care Team Description 09/12/2007 [facility] Medical Records [address] [place] [address] Cheikh Blank MD Social History Tobacco Use Types Packs/Day [...] on filedocumented in this encounter Care Teams Can Worker Relationship Specialty Start Date End Date Jah Batista MD PCP - General 11/13/04 06/14/16 Mik Macias MD PCP - General Family Practice 06/15/16 07/17/16 Jah Batista MD PCP - General Internal Medicine 07/18/16 10/07/17 Regine Serrano MD PCP - General Internal Medicine 10/08/17 06/25/21 Jonny Giron PA-C PCP - General Med/Peds 06/26/21 02/01/22 Chely Acuña MD [address] [place] [address] [phone] PCP - General Internal Medicine 02/02/22 06/10/22 Ben Aguilar MD [address] [place] [address] 47698 PCP - General Internal Medicine 06/11/22 Brandon Anguaino MD Specialist Cardiovascular Disease 07/17/21 documented as of this encounter
--- OUTSIDE RECORDS SUMMARY | 2025-07-22 13:38 | XMS_ITS | Encounter Summary ---
Author Organization [facility] Address [address] [place] [address] Care Team Providers Care Fund Accountant Name Role Phone Regine Serrano MD Primary Care Provider Robyn Jonny Cook PA-C Primary Care Provider Unavail able Brandon Anguiano MD Unavailable Chely Acuña MD Primary Care Provider [phone] Ben Aguilar MD Primary Care Provider + Encounter Details Date Type Department Care Team Description 05/31/2020 Cutter And Edge Trimmer Report Medical Records [address] [place] [address] Darron Hampton MD Social History Tobacco Use Types Packs/Day [...] on filedocumented in this encounter Care Teams Fund Accountant Relationship Specialty Start Date End Date Regine Serrano MD PCP - General Internal Medicine 10/08/17 06/25/21 Jonny Giron PA-C PCP - General Med/Peds 06/26/21 02/01/22 Chely Acuña MD [address] [place], [place] [phone] PCP - General Internal Medicine 02/02/22 06/10/22 Ben Aguilar MD [address] [place] [address] PCP - General Internal Medicine 06/11/22 Brandon Anguiano MD Specialist Cardiovascular Disease 07/17/21 documented as of this encounter
--- OUTSIDE RECORDS SUMMARY | 2025-07-22 13:38 | XMS_ITS | Encounter Summary ---
Author Organization [facility] Address [address] [place] [address] Care Team Providers Care Embroidery Cutter Name Role Phone Jah Batista MD Primary Care Provider Unavail able Mik Macias MD Primary Care Provider Unavailab Jah Rousseau MD Primary Care Provider Unavail able Regine Serrano MD Primary Care Provider Robyn Jonny Cook PA-C Primary Care Provider Unavail able Brandon Anguiano MD Unavailable Chely Acuña MD Primary Care Provider [phone] Ben Aguilar MD Primary Care Provider + Reason for Visit * Reason Onset Date Comments Provider Call Back 04/05/2014 Encounter Details Date Type Department Care Team Description 04/05/2014 Telephone Adult Medicine [address] [address] Jah Batista MD Provider Call Back Social History Tobacco Use Types Packs/Day Years [...] encounter Miscellaneous Notes * Telephone Encounter - Shireen Santana L.P.N. - 04/05/2014 4:25 PM EDT Spoke with the nurse from Dr. Summers's office. She reports that the doctor is not able to do hip scopes on a patient who is greater than 200 pounds. I have contacted the patient to let her know thatDr. Batista did speak with Dr. Summers and information was faxed however I did tell her what the nurseinformed me of. I have told her that I will be sending another message to the referrals office to let them know the latest information but that we are still working on this problem. She agrees and understands. * Telephone Encounter - Jah Batista MD - 04/05/2014 11:55 AM EDT See my note * Telephone Encounter - Amber TorrezP.NMaury - 04/05/2014 11:09 AM EDT Pt calling regarding visit last week ,you were going to speak with a doctor in [place]. * Telephone Encounter - Kathy Carbajalsnajuana - 04/05/2014 9:33 AM EDT Delia saw Dr Batista last week. She is waiting to hear from him about an MRI. He was to speak with a Surgeon in [place] about her right hip. Please advise. She is very uncomfortable. documented in this encounter Plan of Treatment Not on file documented as of this encounter Visit Diagnoses Not on filedocumented in this encounter Care Teams Embroidery Cutter Relationship Specialty Start Date End Date Jah Batista MD PCP - General 11/13/04 06/14/16 Mik Macias MD PCP - General Family Practice 06/15/16 07/17/16 Jah Batista MD PCP - General Internal Medicine 07/18/16 10/07/17 Regine Serrano MD PCP - General Internal Medicine 10/08/17 06/25/21 Jonny Giron PA-C PCP - General Med/Peds 06/26/21 02/01/22 Chely Acuña MD [address] [place] [address] [phone] PCP - General Internal Medicine 02/02/22 06/10/22 Ben Aguilar MD [address] [place] [address] [phone] PCP - General Internal Medicine 06/11/22 Brandon Anguiano MD Specialist Cardiovascular Disease 07/17/21 documented as of this encounter
--- OUTSIDE RECORDS SUMMARY | 2025-07-22 13:38 | XMS_ITS | Encounter Summary ---
Author Organization [facility] Address [address] [place] [address] Care Team Providers Care Straight Slicing Machine Operator Name Role Phone Jonny Giron PA-C Primary Care Provider Unavail able Brandon Anguiano MD Unavailable Chely Acuña MD Primary Care Provider [phone] Ben Aguilar MD Primary Care Provider + Reason for Visit * Reason Onset Date Comments preop exam 07/21/2021 EKG Encounter Details Date Type Department Care Team Description 07/21/2021 Telephone Adult Medicine [address] [phone] Jonny Giron PA-C preop exam (EKG) Social History Tobacco Use Types Packs/Day Years [...] file Not on file Not on file COVID-19 Exposure Response Date Recorded In the last month, have you been in contact with someone who was confirmed or suspected to have Coronavirus / COVID-19? No / Unsure 07/20/2021 8:58 AM EDT documented as of this encounter Miscellaneous Notes * Telephone Encounter - Sangeeta Gooden - 07/25/2021 2:10 PM EDT Got it - thanks so much * Telephone Encounter - Marianela Flores M.A. - 07/25/2021 1:53 PM EDT It was completed and scanned on 07/18/2021 * Telephone Encounter - Sangeeta Gooden - 07/25/2021 1:39 PM EDT EKG not final and not scanned, cannot print * Telephone Encounter - Marianela Flores M.A. - 07/25/2021 1:32 PM EDT EKG done on 07/17 by Brandon Anguiano that is in the system to print * Telephone Encounter - Sangeeta Gooden - 07/25/2021 12:27 PM EDT Please Fax EKG - Surgeon requesting results for surgery. Thank You * Telephone Encounter - Sangeeta Gooden - 07/24/2021 12:52 PM EDT Reminder: Please Fax EKG to pre op: [phone]. Thank you. * Telephone Encounter - Sangeeta Gooden - 07/21/2021 1:18 PM EDT Call from Surgeon Office: Please fax EKG to: [phone] from patient's most recent Pre Op visit at your earliest convenience. Thank you, much appreciated. documented in this encounter Plan of Treatment Not on file documented as of this encounter Visit Diagnoses Not on filedocumented in this encounter Care Teams Straight Slicing Machine Operator Relationship Specialty Start Date End Date Jonny Giron PA-C PCP - General Med/Peds 06/26/21 02/01/22 Chely Acuña MD [address] [place] [address] [phone] PCP - General Internal Medicine 02/02/22 06/10/22 Ben Aguilar MD [address] [place] [phone] PCP - General Internal Medicine 06/11/22 Brandon Anguiano MD Specialist Cardiovascular Disease 07/17/21 documented as of this encounter
--- OUTSIDE RECORDS SUMMARY | 2025-07-22 13:38 | XMS_ITS | Encounter Summary ---
Author Organization [facility] Address [address] [place] [address] Care Team Providers Care Auto Technician Name Role Phone Regine Serrano MD Primary Care Provider Robyn Jonny Cook PA-C Primary Care Provider Unavail able Brandon Anguiano MD Unavailable Chely Acuña MD Primary Care Provider [phone] Ben Aguilar MD Primary Care Provider + Encounter Details Date Type Department Care Team Description 05/08/2021 Release of Information Medical Records [address] [place] [phone] [place] [address] Social History Tobacco Use Types Packs/Day Years [...] have Coronavirus / COVID-19? No / Unsure 04/17/2021 9:25 AM EDT documented as of this encounter Plan of Treatment Not on file documented as of this encounter Visit Diagnoses Not on filedocumented in this encounter Care Teams Auto Technician Relationship Specialty Start Date End Date Regine Serrano MD PCP - General Internal Medicine 10/08/17 06/25/21 Jonny Grion PA-C PCP - General Med/Peds 06/26/21 02/01/22 Chely Acuña MD [address] [place] [phone] PCP - General Internal Medicine 02/02/22 06/10/22 Ben Aguilar MD [address] [place] [phone] PCP - General Internal Medicine 06/11/22 Brandon Anguiano MD Specialist Cardiovascular Disease 07/17/21 documented as of this encounter
--- OUTSIDE RECORDS SUMMARY | 2025-07-22 13:38 | XMS_ITS | Encounter Summary ---
Author Organization [facility] Address [address] [place] [address] Care Team Providers Care Coloring Checker Name Role Phone Regine Serrano MD Primary Care Provider Robyn Jonny Cook PA-C Primary Care Provider Unavail able Brandon Anguiano MD Unavailable Chely Acuña MD Primary Care Provider [phone] Ben Aguilar MD Primary Care Provider + Encounter Details Date Type Department Care Team Description 08/11/2020 Pt. Non Urgent Medical Question Medicine/Pediatrics - [address] [phone] Jonny Giron PA-C Social History Tobacco Use [...] as of this encounter Progress Notes * Ekaterina Villeda M.A. - 08/12/2020 8:52 AM EDTFrom: Delia Baldwin To: Jonny Giron PA-C Sent: 08/11/2020 7:29 PM EDT Subject: Flu & shingles shot Hi Jonny I was wondering if it's ok to get a flu shot?I was told because of the RA,I am not to get a shingles shot... Is this correct? ori Lin documented in this encounter Plan of Treatment Not on file documented as of this encounter Visit Diagnoses Not on filedocumented in this encounter Care Teams Coloring Checker Relationship Specialty Start Date End Date Regine Serrano MD PCP - General Internal Medicine 10/08/17 06/25/21 Jonny Giron PA-C PCP - General Med/Peds 06/26/21 02/01/22 Chely Acuña MD [address] [place] [phone] PCP - General Internal Medicine 02/02/22 06/10/22 Ben Aguilar MD [address] [place] [address] [phone] PCP - General Internal Medicine 06/11/22 Brandon Anguiano MD Specialist Cardiovascular Disease 07/17/21 documented as of this encounter
--- OUTSIDE RECORDS SUMMARY | 2025-07-22 13:38 | XMS_ITS | Encounter Summary ---
Author Organization [facility] Address [address] [place] [address] Care Team Providers Care Health Information Tech Name Role Phone Jah Batista MD Primary Care Provider Unavail able Mik Macias MD Primary Care Provider Unavailab Jah Rousseau MD Primary Care Provider Unavail able Regine Serrano MD Primary Care Provider Robyn Jonny Cook PA-C Primary Care Provider Unavail able Brandon Anguiano MD Unavailable Chely Acuña MD Primary Care Provider [phone] Ben Aguilar MD Primary Care Provider + Encounter Details Date Type Department Care Team Description 05/03/2015 Money Counter Report Medical Records [address] [place], [place] [id number] [place] [address] [place] [id number] Social History Tobacco Use Types Packs/Day Years [...] on filedocumented in this encounter Care Teams Health Information Tech Relationship Specialty Start Date End Date Jah Batista MD PCP - General 11/13/04 06/14/16 Mik Macias MD PCP - General Family Practice 06/15/16 07/17/16 Jah Batista MD PCP - General Internal Medicine 07/18/16 10/07/17 Regine Serrano MD PCP - General Internal Medicine 10/08/17 06/25/21 Jonny Giron PA-C PCP - General Med/Peds 06/26/21 02/01/22 Chely Acuña MD [address] [place] [address] [id number] PCP - General Internal Medicine 02/02/22 06/10/22 Ben Aguilar MD [address] [place] [address] PCP - General Internal Medicine 06/11/22 Brandon Anguiano MD Specialist Cardiovascular Disease 07/17/21 documented as of this encounter
--- OUTSIDE RECORDS SUMMARY | 2025-07-22 13:38 | XMS_ITS | Encounter Summary ---
Author Organization [facility] Address [address] [place] [address] Care Team Providers Care Fender Repairer Name Role Phone Jah Batista MD Primary Care Provider Unavail able Mik Macias MD Primary Care Provider Unavailab Jah Rousseau MD Primary Care Provider Unavail able Regine Serrano MD Primary Care Provider Robyn Jonny Cook PA-C Primary Care Provider Unavail able Brandon Anguiano MD Unavailable Chely Acuña MD Primary Care Provider [phone] Ben Aguilar MD Primary Care Provider + Encounter Details Date Type Department Care Team Description 01/18/2016 Head Mechanic Report Medical Records [address] [place] [id number] Pedro Pablo Benjamin MD Social History Tobacco [...] on filedocumented in this encounter Care Teams Fender Repairer Relationship Specialty Start Date End Date Jah Batista MD PCP - General 11/13/04 06/14/16 Mik Macias MD PCP - General Family Practice 06/15/16 07/17/16 Jah Baitsta MD PCP - General Internal Medicine 07/18/16 10/07/17 Regine Serrano MD PCP - General Internal Medicine 10/08/17 06/25/21 Jonny Giron PA-C PCP - General Med/Peds 06/26/21 02/01/22 Chely Acuña MD [address] [place] [address] [id number] PCP - General Internal Medicine 02/02/22 06/10/22 Ben Aguilar MD [address] [place] [address] [id number] PCP - General Internal Medicine 06/11/22 Brandon Anguiano MD Specialist Cardiovascular Disease 07/17/21 documented as of this encounter
--- OUTSIDE RECORDS SUMMARY | 2025-07-22 13:38 | XMS_ITS | Encounter Summary ---
Author Organization [facility] Address [address] [place] [address] Care Team Providers Care Afloat Cryptologic Manager Name Role Phone Jah Batista MD Primary Care Provider Unavail able Mik Macias MD Primary Care Provider Unavailab Jah Rousseau MD Primary Care Provider Unavail able Regine Serrano MD Primary Care Provider Robyn Jonny Cook PA-C Primary Care Provider Unavail able Brandon Anguiano MD Unavailable Chely Acuña MD Primary Care Provider [phone] Ben Aguilar MD Primary Care Provider + Encounter Details Date Type Department Care Team Description 07/03/2010 Juvenile Justice Officer Report Medical Records [address] [place] [address] Fabien Clark MD Social History Tobacco Use [...] on filedocumented in this encounter Care Teams Afloat Cryptologic Manager Relationship Specialty Start Date End Date Jah Batista MD PCP - General 11/13/04 06/14/16 Mik Macias MD PCP - General Family Practice 06/15/16 07/17/16 Jah Batista MD PCP - General Internal Medicine 07/18/16 10/07/17 Regine Serrano MD PCP - General Internal Medicine 10/08/17 06/25/21 Jonny Giron PA-C PCP - General Med/Peds 06/26/21 02/01/22 Chely Acuña MD [address] [place] [address] [id number] PCP - General Internal Medicine 02/02/22 06/10/22 Ben Aguilar MD [address] [place] [address] [id number] PCP - General Internal Medicine 06/11/22 Brandon Anguiano MD Specialist Cardiovascular Disease 07/17/21 documented as of this encounter
--- OUTSIDE RECORDS SUMMARY | 2025-07-22 13:38 | XMS_ITS | Encounter Summary ---
Author Organization [facility] Address [address] [place] [address] Care Team Providers Care Housekeeper Name Role Phone Regine Serrano MD Primary Care Provider Robyn Jonny Cook PA-C Primary Care Provider Unavail able Brandon Anguiano MD Unavailable Chely Acuña MD Primary Care Provider [phone] Ben Aguilar MD Primary Care Provider + Encounter Details Date Type Department Care Team Description 01/20/2018 Inward Toll Operator Report Medical Records [address] [place] [address] Herman Morrison PA-C [address] [place] [address] [phone] Social History Tobacco Use Types Packs/Day Years [...] on filedocumented in this encounter Care Teams Housekeeper Relationship Specialty Start Date End Date Regine Serrano MD PCP - General Internal Medicine 10/08/17 06/25/21 Jonny Giron PA-C PCP - General Med/Peds 06/26/21 02/01/22 Chely Acuña MD [address] [place] [id number] PCP - General Internal Medicine 02/02/22 06/10/22 Ben Aguilar MD [address] [place] [id number] PCP - General Internal Medicine 06/11/22 Brandon Anguiano MD Specialist Cardiovascular Disease 07/17/21 documented as of this encounter
--- OUTSIDE RECORDS SUMMARY | 2025-07-22 13:38 | XMS_ITS | Encounter Summary ---
Author Organization [facility] Address [address] [place] [address] Care Team Providers Care Machine Bander And Cellophaner Name Role Phone Regine Serrano MD Primary Care Provider Robyn Jonny Cook PA-C Primary Care Provider Unavail able Brandon Anguiano MD Unavailable Chely Acuña MD Primary Care Provider [phone] Ben Aguilar MD Primary Care Provider + Reason for Visit * Reason Onset Date Comments Provider Call Back 06/16/2018 Encounter Details Date Type Department Care Team Description 06/16/2018 Telephone Adult Medicine [facility] [address] [place], [place] [id number] Regine Serrano MD Provider Call Back Social History Tobacco [...] encounter Miscellaneous Notes * Telephone Encounter - Regine Serrnao MD - 06/18/2018 12:50 PM EDT Thank you for making appointment. It wounds like she will need further evaluation and possible stress test. FYI to provider seeing patient * Telephone Encounter - Marianela Flores M.A. - 06/18/2018 9:14 AM EDT Pt was on vacation for 2 wks and c/o chest pain and back pain (that last 5 - 7 mins) while on vacation - she did not go to an ER, because she thought the chest pain was due to her palpitations and the back pain was because she was on her bike for so long. She states that her symptoms have not changed since her last conversation with you, but they are getting more frequent. I did make her and appt with Brandon on 06/23/18, if you feel she needs a follow up. * Telephone Encounter - Regine Serrano MD - 06/17/2018 7:03 PM EDT I do not recall the full conversation. Is she having symptomatic palpitations still? I know she told me that they were rare. How bothersome are her symptoms? * Telephone Encounter - Keya Elkins M.A. - 06/16/2018 3:54 PM EDT Spoke with the pt. She was told to call when she came back from her vacation. She states PCP had talked about a 30 day monitor. Did you want to see her or order the loop or event Monitor. Please review and advise. Ok for tomorrow. Please inform the pt. Thank you * Telephone Encounter - Maxine Guerra - 06/16/2018 3:24 PM EDT Caller requesting call back from provider: Is the caller the patient? YES If caller is not the patient, what is the callers name? N/A Callers relationship to patient? N/A If person calling is not the patient themselves, is there a verbal release in FYI or permanent comments for this person: YES Reason for call back: Patient was told to call dr. Serrano regarding a heart monitor although [facility] does not have any sooner openings. Caller offered to speak with the nurse for assistance: YES Response: Patient offered to speak with nurse for assistance and patient agreed. Message forwarded to nurse. documented in this encounter Plan of Treatment Not on file documented as of this encounter Visit Diagnoses Not on filedocumented in this encounter Care Teams Machine Bander And Cellophaner Relationship Specialty Start Date End Date Regine Serrano MD PCP - General Internal Medicine 10/08/17 06/25/21 Jonny Giron PA-C PCP - General Med/Peds 06/26/21 02/01/22 Chely Acuña MD [address] [place] [address] [id number] PCP - General Internal Medicine 02/02/22 06/10/22 Ben Aguilar MD [address] [place] [address] [phone] PCP - General Internal Medicine 06/11/22 Brandon Anguiano MD Specialist Cardiovascular Disease 07/17/21 documented as of this encounter
--- OUTSIDE RECORDS SUMMARY | 2025-07-22 13:38 | XMS_ITS | Encounter Summary ---
Author Organization [facility] Address [address] [place] [address] Care Team Providers Care Principal Consulting Engineer Name Role Phone Jah Batista MD Primary Care Provider Unavail able Mik Macias MD Primary Care Provider Unavailab Jah Rousseau MD Primary Care Provider Unavail able Regine Serrano MD Primary Care Provider Robyn Jonny Cook PA-C Primary Care Provider Unavail able Brandon Anguiano MD Unavailable Chely Acuña MD Primary Care Provider [phone] Ben Aguilar MD Primary Care Provider + Encounter Details Date Type Department Care Team Description 09/08/2015 Controlled Substance Contract with Plan Medical Records [address] [place] [id number] Abstract, Provider Social History Tobacco Use Types [...] on filedocumented in this encounter Care Teams Principal Consulting Engineer Relationship Specialty Start Date End Date Jah Batista MD PCP - General 11/13/04 06/14/16 Mik Macias MD PCP - General Family Practice 06/15/16 07/17/16 Jah Batista MD PCP - General Internal Medicine 07/18/16 10/07/17 Regine Serrano MD PCP - General Internal Medicine 10/08/17 06/25/21 Jonny Giron PA-C PCP - General Med/Peds 06/26/21 02/01/22 Chely Acuña MD [address] [place] [address] [phone] PCP - General Internal Medicine 02/02/22 06/10/22 Ben Aguilar MD [address] [place] [address] [phone] PCP - General Internal Medicine 06/11/22 Brandon Anguiano MD Specialist Cardiovascular Disease 07/17/21 documented as of this encounter
--- OUTSIDE RECORDS SUMMARY | 2025-07-22 13:38 | XMS_ITS | Encounter Summary ---
Author Organization [facility] Address [address] [place] [address] Care Team Providers Care Log Inspector Name Role Phone Regine Serrano MD Primary Care Provider Robyn Jonny Cook PA-C Primary Care Provider Unavail able Brandon Anguiano MD Unavailable Chely Acuña MD Primary Care Provider [phone] Ben Aguilar MD Primary Care Provider + Encounter Details Date Type Department Care Team Description 01/16/2018 Home Health Certification Medical Records [address] [place] [address] Vna Social History Tobacco Use Types Packs/Day Years [...] on filedocumented in this encounter Care Teams Log Inspector Relationship Specialty Start Date End Date Regine Serrano MD PCP - General Internal Medicine 10/08/17 06/25/21 Jonny Giron PA-C PCP - General Med/Peds 06/26/21 02/01/22 Chely Acuña MD [address] [place] [address] [phone] PCP - General Internal Medicine 02/02/22 06/10/22 Ben Aguilar MD [address] [place] [address] PCP - General Internal Medicine 06/11/22 Brandon Anguiano MD Specialist Cardiovascular Disease 07/17/21 documented as of this encounter
--- OUTSIDE RECORDS SUMMARY | 2025-07-22 13:38 | XMS_ITS | Encounter Summary ---
Author Organization [facility] Address [address] [place] [address] Care Team Providers Care Skinner Pelts Name Role Phone Jah Batista MD Primary Care Provider Unavail able Mik Macias MD Primary Care Provider Unavailab Jah Rousseau MD Primary Care Provider Unavail able Regine Serrano MD Primary Care Provider Robyn Jonny Cook PA-C Primary Care Provider Unavail able Brandon Anguiano MD Unavailable Chely Acuña MD Primary Care Provider [phone] Ben Aguilar MD Primary Care Provider + Encounter Details Date Type Department Care Team Description 08/07/2010 Grounds Crew Supervisor Report Medical Records [address] [place] [address] Dawit Traylor Social History Tobacco Use Types Packs/Day Years [...] on filedocumented in this encounter Care Teams Skinner Pelts Relationship Specialty Start Date End Date Jah Batista MD PCP - General 11/13/04 06/14/16 Mik Macias MD PCP - General Family Practice 06/15/16 07/17/16 Jah Batista MD PCP - General Internal Medicine 07/18/16 10/07/17 Regine Serrano MD PCP - General Internal Medicine 10/08/17 06/25/21 Jonny Giron PA-C PCP - General Med/Peds 06/26/21 02/01/22 Chely Acuña MD [address] [place] [address] PCP - General Internal Medicine 02/02/22 06/10/22 Ben Aguilar MD [address] [place] [id number] PCP - General Internal Medicine 06/11/22 Brandon Anguiano MD Specialist Cardiovascular Disease 07/17/21 documented as of this encounter
--- OUTSIDE RECORDS SUMMARY | 2025-07-22 13:39 | XMS_ITS | Encounter Summary ---
Author Organization [facility] Address [address] [place] [address] Care Team Providers Care Desk Monitor Name Role Phone Brandon Anguiano MD Unavailable Ben Aguilar MD Primary Care Provider + Encounter Details Date Type Department Care Team Description 04/02/2023 Business Doc Medical Records [address] [place] [id number] Abstract, Provider Social History Tobacco Use Types [...] Exposure Response Date Recorded In the last 10 days, have yo u been in contact with someone who was confirmed or suspected to have Coronavirus/COVID-19? No / Unsure 03/29/2023 1:43 PM EDT documented as of this encounter Plan of Treatment Not on file documented as of this encounter Visit Diagnoses Not on filedocumented in this encounter Care Teams Desk Monitor Relationship Specialty Start Date End Date Ben Aguilar MD [address] [place] [address] PCP - General Internal Medicine 06/11/22 Brandon Anguiano MD Specialist Cardiovascular Disease 07/17/21 documented as of this encounter
--- OUTSIDE RECORDS SUMMARY | 2025-07-22 13:39 | XMS_ITS | Encounter Summary ---
Author Organization [facility] Address [address] [place] [address] Care Team Providers Care Metal Hanging Supervisor Name Role Phone Jah Batista MD Primary Care Provider Unavail able Regine Serrano MD Primary Care Provider Jonny [place] PA-C Primary Care Provider Unavail able Brandon Anguiano MD Unavailable Chely Acuña MD Primary Care Provider [phone] Ben Aguilar MD Primary Care Provider + Encounter Details Date Type Department Care Team Description 07/15/2017 Wedding Consultant Report Medical Records [address] [place] [address] Allan Anand MD Social History Tobacco Use [...] on filedocumented in this encounter Care Teams Metal Hanging Supervisor Relationship Specialty Start Date End Date Jah Batista MD PCP - General Internal Medicine 07/18/16 10/07/17 Regine Serrano MD PCP - General Internal Medicine 10/08/17 06/25/21 Jonny Giron PA-C PCP - General Med/Peds 06/26/21 02/01/22 Chely Acuña MD [address] [place] [address] [phone] PCP - General Internal Medicine 02/02/22 06/10/22 Ben Aguilar MD [address] [place] [address] [id number] PCP - General Internal Medicine 06/11/22 Brandon Anguiano MD Specialist Cardiovascular Disease 07/17/21 documented as of this encounter
--- OUTSIDE RECORDS SUMMARY | 2025-07-22 13:39 | XMS_ITS | Encounter Summary ---
Author Organization [facility] Address [address] [place] [address] Care Team Providers Care Senior Program Analyst Name Role Phone Jah Batista MD Primary Care Provider Unavail able Regine Serrano MD Primary Care Provider Jonny [place] PA-C Primary Care Provider Unavail able Brandon Anguiano MD Unavailable Chely Acuña MD Primary Care Provider [phone] Ben Aguilar MD Primary Care Provider + Encounter Details Date Type Department Care Team Description 09/12/2016 [facility] Medical Records [address] [place] [address] Abstract, Provider Social History Tobacco Use Types [...] on filedocumented in this encounter Care Teams Senior Program Analyst Relationship Specialty Start Date End Date Jah Batista MD PCP - General Internal Medicine 07/18/16 10/07/17 Regine Serrano MD PCP - General Internal Medicine 10/08/17 06/25/21 Jonny Giron PA-C PCP - General Med/Peds 06/26/21 02/01/22 Chely Acuña MD [address] [place] [address] [phone] PCP - General Internal Medicine 02/02/22 06/10/22 Ben Aguilar MD [address] [place] [address] PCP - General Internal Medicine 06/11/22 Brandon Anguiano MD Specialist Cardiovascular Disease 07/17/21 documented as of this encounter
--- OUTSIDE RECORDS SUMMARY | 2025-07-22 13:39 | XMS_ITS | Encounter Summary ---
Author Organization [facility] Address [address] [place] [address] Care Team Providers Care Automotive Vehicle Inspector Name Role Phone Jah Batista MD Primary Care Provider Unavail Regine Sauceda MD Primary Care Provider Robyn Jonny Cook PA-C Primary Care Provider Unavail able Brandon Anguiano MD Unavailable Chely Acuña MD Primary Care Provider [phone] Ben Aguilar MD Primary Care Provider + Encounter Details Date Type Department Care Team Description 08/05/2017 SCAN Medical Records [address] [place] [id number] Abstract, Provider Social History Tobacco Use Types [...] Name Priority Date/Time Associated Diagnosis Comments OUTSIDE EKG Routine 08/05/2017 documented in this encounter Results * OUTSIDE EKG (08/05/2017) Provider Default CARDIOLOGY documented in this encounter Visit Diagnoses Not on filedocumented in this encounter Care Teams Automotive Vehicle Inspector Relationship Specialty Start Date End Date Jah Batista MD PCP - General Internal Medicine 07/18/16 10/07/17 Regine Serrano MD PCP - General Internal Medicine 10/08/17 06/25/21 Jonny Giron PA-C PCP - General Med/Peds 06/26/21 02/01/22 Chely Acuña MD [address] [place] [address] [phone] PCP - General Internal Medicine 02/02/22 06/10/22 Ben Aguilar MD [address] [place] [address] [phone] PCP - General Internal Medicine 06/11/22 Brandon Anguiano MD Specialist Cardiovascular Disease 07/17/21 documented as of this encounter
--- OUTSIDE RECORDS SUMMARY | 2025-07-22 13:39 | XMS_ITS | Clinical Summary ---
Author Organization [address] Address [address] [place] [phone] Phone Care Team Providers Care Sound Engineering Technician Name Role Phone Ben Aguilar MD Primary [...] ng multiple sites with positive rheumatoid factor ([facility] V24, [facility] V28) 11/01/2023 Assessment & Plan (04/30/2025 1:11 [...] Overview (09/01/2024): Planning for surgical intervention with [facility] neurosurgery, Dr. Mesa 12/2019; completed 02/15/20 Assessment & Plan (04/30/2025 1:11 PM EDT): Continue gabapentin 600 mg 3 times daily Assessment & Plan (10/12/2024 1:38 PM EST): Orders: gabapentin (NEURONTIN) 600 mg tablet; Take 1 tablet (600 mg total) by mouth 3 (three) times a day. Shoulder pain, bilateral 05/13/2018 Overview (09/01/2024): Ortho, Dr. Anand [facility] Avascular necrosis of bones of both hips ([facility] V24, [facility] V28) 02/13/2018 Overview (09/01/2024): THR L in [...] Planninf for R release with Dr. Anand, [facility] 08/2018 Depression 12/08/2010 Nephrolithiasis 10/05/2010 Overview (09/01/2024): Kick; ESWL, Left Perinephric fluid 09/03 [facility], Dr. Pedro Pablo Benjamin ED visit, left ureteral stone 11/2017 Encounters Date Type Department Care Team Description 05/03/2025 10:47 AM EDT - 05/03/2025 11:59 PM EDT Hospital Encounter Radiology Department - [address] [phone] Left leg swelling Discharge Disposition: Home or Self Care 04/30/2025 12:30 PM EDT Office Visit Adult Medicine [address] [phone] Ben Aguilar MD Essential hypertension (Primary Dx); Mild intermittent asthma without complication; Rheumatoid arthritis involving multiple sites with positive rheumatoid factor (CMS/HCC V24, CMS/HCC V28); Cervical radiculopathy at C6; Peroneal neuropathy, left; Tibial neuropathy, left; Ulnar neuropathy of both upper extremities; Obesity (BMI 30-39.9); Mixed hyperlipidemia; Prediabetes; Seasonal allergic rhinitis due to pollen; Left leg swelling; Need for vaccination against Streptococcus pneumoniae from Last 3 Months Immunizations Name Administration [...] TUMMY TUCK OTHER SURGICAL HISTORY 08/31 PROCEDURE: OR HYSTEROSCOPY ENDOMETRIAL ABLATION; COMMENT: TUBAL LIGATION PROCEDURE: HISTORICAL TUBAL LIGATION HYSTERECTOMY 2008 PROCEDURE: HISTORICAL HYSTERECTOMY; COMMENT: BREAST BIOPSY PROCEDURE: BX BREAST; PERC NEEDLE CORE W/IMAG GUID; COMMENT: Left BARIATRIC SURGERY 09/24/14 PROCEDURE: OR LAPS GSTRC RSTRICTIV PX LONGITUDINAL GASTRECTOMY; COMMENT: Fialo; sleeve HIP ARTHROPLASTY 04/12/2015 Left PROCEDURE: HISTORICAL HIP REPLACEMENT HIP ARTHROPLASTY 09/24/2017 Right PROCEDURE: HISTORICAL HIP REPLACEMENT BREAST SURGERY PROCEDURE: OR UNLISTED PROCEDURE BREAST; COMMENT: BREAST LIFT BREAST SURGERY PROCEDURE: OR UNLISTED PROCEDURE BREAST; COMMENT: implants TOTAL KNEE ARTHROPLASTY 01/07/2018 Left PROCEDURE: HISTORICAL TOTAL KNEE REPLACE; COMMENT: [facility] CARPAL TUNNEL RELEASE 2017 Bilateral PROCEDURE: HISTORICAL CARPAL TUNNEL REL; COMMENT: Right 10/01/18, left 10/2018; [facility] NECK SURGERY 02/15/2020 PROCEDURE: HISTORICAL NECK SURGERY; COMMENT: Anterior cervical discectomy C6-C7, interbody device, fusion, plate; Dr. Mesa, [facility] SHOULDER SURGERY 11/03/2020 Left PROCEDURE: HISTORICAL [...] both hips (HCC); COMMENT: THR L in 2013; THR -R in 2016 History of 2019 novel mills virus disease [...] COVID-19 Vaccine (5 - Mixed Product risk ) 02/23/2025 08/25/2024, 12/15/2021, 03/19/2021, Additional history exists Influenza [...] 11/26/2021, 09/05/2021 Depression Screening Completed 03/26/2025, 11/01/20 Pneumococcal Vaccine: 50+ Years Completed 04/30/2025, 01/11/2015 [...] Signed Date: 05/03/2025 11:07 ET Workstation ID: [id number] Transcribed By: Self Edit Transcribed Date: 05/03/2025 [...] Signed Date: 05/03/2025 11:07 ET Workstation ID: [id number] Transcribed By: Self Edit Transcribed Date: 05/03/2025 11:06 ET us Ben Aguilar MD CV VASCULAR PROC EDURES Final Result * (ABNORMAL) Lipid panel with reflex to direct LDL (05/03/2025 7:55 AM EDT) Cholesterol 248(H) 0 - 200 mg/dL LAB CHEMISTRY METHOD 05/03/2025 11:41 AM EDT [facility] Triglycerides 89 0 - 150 mg/dL LAB CHEMISTRY METHOD 05/03/2025 11:41 AM EDT [facility] HDL 64 >=40 mg/dL LAB CHEMISTRY METHOD 05/03/2025 11:41 AM EDT [facility] LDL Calculated 166(H) 0 - 100 mg/dL LAB CHEMISTRY METHOD 05/03/2025 11:41 AM EDT [facility] VLDL Cholesterol Isaias 17.8 mg/dL LAB CHEMISTRY METHOD 05/03/2025 11:41 AM EDT [facility] Non HDL Chol. (LDL+VLDL) 184(H) <145 mg/dL LAB CHEMISTRY METHOD 05/03/2025 11:41 AM EDT [facility] Chol/HDL Ratio 3.9 0.0 - 4.4 LAB CHEMISTRY METHOD 05/03/2025 11:41 AM EDT [facility] Blood Venous blood specimen / Unknown Venipuncture / Unknown 05/03/2025 7:55 AM EDT 05/03/2025 7:55 AM EDT us Ben Aguilar MD LAB BLOOD ORDERA BLES Final Result [facility] [address] [place] [address], [place] [phone] * Hemoglobin A1c (05/03/2025 7:55 AM EDT) Hemoglobin A1C 4.9 <6.5 % LAB CHEMISTRY METHOD 05/03/2025 2:06 PM EDT [facility] Mean Bld Glu Estim. 94 mg/dL LAB CHEMISTRY METHOD 05/03/2025 2:06 PM EDT [facility] Blood Venous blood specimen / Unknown Venipuncture / Unknown 05/03/2025 7:55 AM EDT 05/03/2025 7:55 AM EDT us Ben Aguilar MD LAB BLOOD ORDERA BLES Final Result [facility] [address] [place] [address], * Comprehensive metabolic panel (05/03/2025 7:55 AM EDT) Sodium 142 133 - 145 mmol/L LAB CHEMISTRY METHOD 05/03/2025 11:41 AM [facility] Potassium 3.8 3.5 - 5.5 mmol/L LAB CHEMISTRY METHOD 05/03/2025 11:41 AM [facility] Chloride 106 96 - 110 mmol/L LAB CHEMISTRY METHOD 05/03/2025 11:41 AM [facility] CO2 28 21 - 32 mmol/L LAB CHEMISTRY METHOD 05/03/2025 11:41 AM [facility] Anion Gap 8 3 - 11 LAB CHEMISTRY METHOD 05/03/2025 11:41 AM [facility] Glucose 86 70 - 100 mg/dL LAB CHEMISTRY METHOD 05/03/2025 11:41 AM [facility] BUN 15 5 - 25 mg/dL LAB CHEMISTRY METHOD 05/03/2025 11:41 AM [facility] Creatinine 0.60 0.50 - 1.10 mg/dL LAB CHEMISTRY METHOD 05/03/2025 11:41 AM [facility] eGFR 103 >=60 mL/min/1. 73m2 LAB CHEMISTRY METHOD 05/03/2025 11:41 AM [facility] Comment:Calculation based on the Chronic Kidney Disease Epidemiology Collaboration (CKD-EPI) equation refit without adjustment for race. BUN/Creatinine Ratio 25.0 LAB CHEMISTRY METHOD 05/03/2025 11:41 AM [facility] Calcium 9.4 8.5 - 10.5 mg/dL LAB CHEMISTRY METHOD 05/03/2025 11:41 AM [facility] AST (SGOT) 24 10 - 42 unit/L LAB CHEMISTRY METHOD 05/03/2025 11:41 AM EDT [facility] ALT (SGPT) 31 10 - 60 unit/L LAB CHEMISTRY METHOD 05/03/2025 11:41 AM EDT [facility] Alkaline Phosphatase 72 42 - 121 unit/L LAB CHEMISTRY METHOD 05/03/2025 11:41 AM EDT [facility] Total Protein 6.8 6.0 - 8.0 g/dL LAB CHEMISTRY METHOD 05/03/2025 11:41 AM EDT [facility] Albumin 3.8 3.2 - 5.0 g/dL LAB CHEMISTRY METHOD 05/03/2025 11:41 AM EDT [facility] Total Bilirubin 0.6 0.0 - 1.4 mg/dL LAB CHEMISTRY METHOD 05/03/2025 11:41 AM EDT [facility] Blood Venous blood specimen / Unknown Venipuncture / Unknown 05/03/2025 7:55 AM EDT 05/03/2025 7:55 AM EDT Ben Aguilar MD LAB BLOOD ORDERA BLES Final Result [facility] [address] [place] [address], [place] [phone] * MG Mammo Digital Screening w Trent bilat (03/29/2025 9:31 AM EDT) Anatomical Region Laterality Modality Breast Bilateral Mammography 03/29/2025 3:38 PM EDT Impressions 03/29/2025 3:44 PM EDT No mammographic evidence for malignancy. BI-RADS CATEGORY: 1 - NEGATIVE RECOMMENDATION: Screening bilateral mammogram is recommended in 1 year. Mammo Location: [facility], [address] [place] [address], [phone], . -------- FINAL REPORT -------- Dictated By: Yecenia Lepe Dictated Date: 03/29/2025 15:38 ET Assigned Physician: Yecenia Lepe Reviewed and Electronically Signed By: Yecenia Lepe Signed Date: 03/29/2025 15:44 ET Workstation ID: [id number] Transcribed By: Self Edit Transcribed Date: 03/29/2025 [...] is recommended in 1 year. Mammo Location: [facility], [address] [place] [address], [phone], . -------- FINAL REPORT -------- Dictated By: Yecenia Lepe Dictated Date: 03/29/2025 15:38 ET Assigned Physician: Yecenia Lepe Reviewed and Electronically Signed By: Yecenia Lepe Signed Date: 03/29/2025 15:44 ET Workstation ID: [id number] Transcribed By: Self Edit Transcribed Date: 03/29/2025 15:38 ET Ben Aguilar MD IMG BI PROCEDURE S Final Result * Depression Screening (11/01/2023) Pathologist [facility] Depression Screening abstracted Historical Provider HEALTH MAINTENANCE Final Result * Hepatitis C Screening (10/09/2019) [facility] Hepatitis C Screening abstracted Historical Provider HEALTH MAINTENANCE Final Result * Colonoscopy (06/18/2017) [facility] Colonoscopy no interpretation abstracted Anatomical Region Laterality Modality Other Historical Provider HEALTH MAINTENANCE Final Result * Pap Smear (03/25/2009) Pathologist [facility] Pap smear no interpretation abstracted Historical Provider HEALTH MAINTENANCE Final Result from Last 3 Months or Most Recently Relevant to Health Maintenance Insurance MEDICARE Care Teams Sound Engineering Technician Relationship Specialty Start Date End Date Ben Aguilar MD [address] [place] [address] PCP - General Internal Medicine 06/11/22
--- OUTSIDE RECORDS SUMMARY | 2025-07-22 13:39 | XMS_ITS | Encounter Summary ---
Author Organization [facility] Address [address] [place] [address] Care Team Providers Care Feather Curling Machine Operator Name Role Phone Reigne Serrano MD Primary Care Provider Robyn Jonny Cook PA-C Primary Care Provider Unavail able Brandon Anguiano MD Unavailable Chely Acuña MD Primary Care Provider [phone] Ben Aguilar MD Primary Care Provider + Encounter Details Date Type Department Care Team Description 07/29/2018 SCAN Medical Records [address] [place] [phone] Caty Robles APRN Social History Tobacco Use Types Packs/Day Years [...] Date/Time Associated Diagnosis Comments OUTSIDE LAB Routine 07/29/2018 documented in this encounter Results * OUTSIDE LAB (07/29/2018) Provider Default LAB documented in this encounter Visit Diagnoses Not on filedocumented in this encounter Care Teams Feather Curling Machine Operator Relationship Specialty Start Date End Date Regine Serrano MD PCP - General Internal Medicine 10/08/17 06/25/21 Jonny Giron PA-C PCP - General Med/Peds 06/26/21 02/01/22 Chely Acuña MD [address] [place] [address] PCP - General Internal Medicine 02/02/22 06/10/22 Ben Aguilar MD [address] [place] [address] PCP - General Internal Medicine 06/11/22 Brandon Anguiano MD Specialist Cardiovascular Disease 07/17/21 documented as of this encounter
--- OUTSIDE RECORDS SUMMARY | 2025-07-22 13:39 | XMS_ITS | Encounter Summary ---
Author Organization [facility] Address [address] [place] [address] Care Team Providers Care Cloth Neutralizer Name Role Phone Brandon Anguiano MD Unavailable Ben Aguilar MD Primary Care Provider + Encounter Details Date Type Department Care Team Description 04/08/2023 Falsework Builder Report Medical Records [address] [place] [phone] Antonino Linn MD Social History Tobacco Use Types Packs/Day [...] on filedocumented in this encounter Care Teams Cloth Neutralizer Relationship Specialty Start Date End Date Ben Aguilar MD [address] [place] [address] PCP - General Internal Medicine 06/11/22 Brandon Anguiano MD Specialist Cardiovascular Disease 07/17/21 documented as of this encounter
--- OUTSIDE RECORDS SUMMARY | 2025-07-22 13:39 | XMS_ITS | Encounter Summary ---
Author Organization [facility] Address [address] [place] [address] Care Team Providers Care Coat Examiner Name Role Phone Regine Serrano MD Primary Care Provider Robyn Jonny Cook PA-C Primary Care Provider Unavail able Brandon Anguiano MD Unavailable Chely Acuña MD Primary Care Provider Ben Aguilar MD Primary Care Provider + Encounter Details Date Type Department Care Team Description 10/13/2018 General Magistrate Report Medical Records [address] [place] [address] Herman Morrison PA-C [address] [place] [address] [phone] Social History Tobacco Use Types Packs/Day Years [...] filedocumented in this encounter Care Teams Coat Examiner Relationship Specialty Start Date End Date Regine Serrano MD PCP - General Internal Medicine 10/08/17 06/25/21 Jonny Giron PA-C PCP - General Med/Peds 06/26/21 02/01/22 Chely Acuña MD [address] [place] [address] PCP - General Internal Medicine 02/02/22 06/10/22 Ben Aguilar MD [address] [place] [address] PCP - General Internal Medicine 06/11/22 Brandon Anguiano MD Specialist Cardiovascular Disease 07/17/21 documented as of this encounter
--- OUTSIDE RECORDS SUMMARY | 2025-07-22 13:39 | XMS_ITS | Encounter Summary ---
Author Organization [facility] Address [address] [place] [address] Care Team Providers Care Rotary Pump Operator Name Role Phone Jah Batista MD Primary Care Provider Unavail able Regine Serrano MD Primary Care Provider Jonny Mayfield PA-C Primary Care Provider Unavail able Brandon Anguiano MD Unavailable Chely Acuña MD Primary Care Provider Ben Aguilar MD Primary Care Provider + Encounter Details Date Type Department Care Team Description 11/07/2016 [facility] Medical Records [address] [place] [phone] Abstract, Provider Social History Tobacco Use Types [...] on filedocumented in this encounter Care Teams Rotary Pump Operator Relationship Specialty Start Date End Date Jah Batista MD PCP - General Internal Medicine 07/18/16 10/07/17 Regine Serrano MD PCP - General Internal Medicine 10/08/17 06/25/21 Jonny Giron PA-C PCP - General Med/Peds 06/26/21 02/01/22 Chely Acuña MD [address] [place] [address] [phone] PCP - General Internal Medicine 02/02/22 06/10/22 Ben Aguilar MD [address] [place] [address] PCP - General Internal Medicine 06/11/22 Brandon Anguiano MD Specialist Cardiovascular Disease 07/17/21 documented as of this encounter
--- OUTSIDE RECORDS SUMMARY | 2025-07-22 13:39 | XMS_ITS | Encounter Summary ---
Author Organization [facility] Address [address] [place] [address] Care Team Providers Care Superintendent Menagerie Name Role Phone Jah Batista MD Primary Care Provider Unavail able Mik Macias MD Primary Care Provider Unavailab Jah Rousseau MD Primary Care Provider Unavail able Regine Serrano MD Primary Care Provider Robyn Jonny Cook PA-C Primary Care Provider Unavail able Brandon Anguiano MD Unavailable Chely Acuña MD Primary Care Provider [phone] Ben Aguilar MD Primary Care Provider + Encounter Details Date Type Department Care Team Description 06/16/2014 Back Padder Report Medical Records [address] [place] [phone] [place] [address] Social History Tobacco Use Types Packs/Day Years [...] on filedocumented in this encounter Care Teams Superintendent Menagerie Relationship Specialty Start Date End Date Jah Batista MD PCP - General 11/13/04 06/14/16 Mik Macias MD PCP - General Family Practice 06/15/16 07/17/16 Jah Batista MD PCP - General Internal Medicine 07/18/16 10/07/17 Regine Serrano MD PCP - General Internal Medicine 10/08/17 06/25/21 Jonny Giron PA-C PCP - General Med/Peds 06/26/21 02/01/22 Chely Acuña MD [address] [place] [address] [phone] PCP - General Internal Medicine 02/02/22 06/10/22 Ben Aguilar MD [address] [place] [address] PCP - General Internal Medicine 06/11/22 Brandon Anguiano MD Specialist Cardiovascular Disease 07/17/21 documented as of this encounter
--- OUTSIDE RECORDS SUMMARY | 2025-07-22 13:39 | XMS_ITS | Encounter Summary ---
Author Organization [facility] Address [address] [place] [address] Care Team Providers Care Metal Stamper Name Role Phone Brandon Anguiano MD Unavailable Ben Aguilar MD Primary Care Provider + Reason for Visit * Reason Comments E-prescribe Rx Request Encounter Details Date Type Department Care Team Description 06/29/2022 Refill Adult Medicine [facility] [address] [place] [address] [phone] Chely Acuña MD [address] [place] [phone] E-prescribe Rx Request Social History Tobacco Use Types Packs/Day Years [...] encounter Miscellaneous Notes * Telephone Encounter - Constance Edward M.A. - 06/29/2022 8:33 AM EDT Lab Results Component Value Date NA 141 05/14/2022 K 4.1 05/14/2022 CO2 27 05/14/2022 CL 106 05/14/2022 BUN 17 05/14/2022 CREAT 0.61 05/14/2022 GLU 90 05/14/2022 CA 9.3 05/14/2022 GFR > 60 05/14/2022 CONCEPCION 05/10/2022 w/Kateryna JAVIER w/PCP not on file Next OV 09/10/2022 w/PCP * Telephone Encounter - Jessie Salas - 06/29/2022 8:00 AM EDT Patient would like script to be: E-PRESCRIBED/FAXED TO PHARMACY WHEN WAS THE PATIENT'S LAST APPOINTMENT IN ADULT MEDICINE? 05/10/22 WHEN WAS THE LAST TIME THE PATIENT SAW THEIR PCP? Has not seen Does patient have an upcoming appointment? Yes 09/10/22 (THE MEDICATION REQUESTED IS ON THE MED LIST ABOVE) All of the medications requested were on the CURRENT MEDS list Did you check the Pharmacy information above?: YES Patient wants: 90 -day supply Is this a mail order prescription request ? NO If the refill is from a FAXED refill request what is the RX # listed on the fax? N/A Patients current insurance carrier is: Payor: [employer] / Plan: POS [facility]10 [facility] [id number] / Product Type: POS [id number] documented in this encounter Plan of Treatment Not on file documented as of this encounter Visit Diagnoses Not on filedocumented in this encounter Care Teams Metal Stamper Relationship Specialty Start Date End Date Ben Aguilar MD [address] [place] [address] PCP - General Internal Medicine 06/11/22 Brandon Anguiano MD Specialist Cardiovascular Disease 07/17/21 documented as of this encounter
--- OUTSIDE RECORDS SUMMARY | 2025-07-22 13:39 | XMS_ITS | Encounter Summary ---
Author Organization [facility] Address [address] [place] [address] Care Team Providers Care Director Business Development Name Role Phone Regine Serrano MD Primary Care Provider Robyn Jonny Cook PA-C Primary Care Provider Unavail able Brandon Anguiano MD Unavailable Chely Acuña MD Primary Care Provider [phone] Ben Aguilar MD Primary Care Provider + Encounter Details Date Type Department Care Team Description 10/06/2019 Orders Only Medicine/Pediatrics - [address] [phone] Jonny Giron PA-C Social History Tobacco Use [...] on filedocumented in this encounter Care Teams Director Business Development Relationship Specialty Start Date End Date Regine Serrano MD PCP - General Internal Medicine 10/08/17 06/25/21 Jonny Giron PA-C PCP - General Med/Peds 06/26/21 02/01/22 Chely Acuña MD [address] [place] [address] PCP - General Internal Medicine 02/02/22 06/10/22 Ben Aguilar MD [address] [place] [address] PCP - General Internal Medicine 06/11/22 Brandon Anguiano MD Specialist Cardiovascular Disease 07/17/21 documented as of this encounter
--- OUTSIDE RECORDS SUMMARY | 2025-07-22 13:39 | XMS_ITS | Encounter Summary ---
Author Organization [facility] Address [address] [place] [address] Care Team Providers Care Manager Utilization Name Role Phone Brandon Anguiano MD Unavailable Ben Aguilar MD Primary Care Provider + Encounter Details Date Type Department Care Team Description 10/14/2023 Mechanical Commissioning Engineer Report Medical Records [address] [place] [address] Antonino Linn MD Social History Tobacco Use [...] on filedocumented in this encounter Care Teams Manager Utilization Relationship Specialty Start Date End Date Ben Aguilar MD [address] [place] [address] PCP - General Internal Medicine 06/11/22 Brandon Anguiano MD Specialist Cardiovascular Disease 07/17/21 documented as of this encounter
--- OUTSIDE RECORDS SUMMARY | 2025-07-22 13:39 | XMS_ITS | Encounter Summary ---
Author Organization [facility] Address [address] [place] [address] Care Team Providers Care Surveyor Oil Well Directional Name Role Phone Regine Serrano MD Primary Care Provider Robyn Jonny Cook PA-C Primary Care Provider Unavail able Brandon Anguiano MD Unavailable Chely Acuña MD Primary Care Provider [phone] Ben Aguilar MD Primary Care Provider + Encounter Details Date Type Department Care Team Description 09/04/2019 Apprentice Electrician Report Medical Records [address] [place] [address] Allan Anand MD Social History Tobacco Use [...] on filedocumented in this encounter Care Teams Surveyor Oil Well Directional Relationship Specialty Start Date End Date Regine Serrano MD PCP - General Internal Medicine 10/08/17 06/25/21 Jonny Giron PA-C PCP - General Med/Peds 06/26/21 02/01/22 Chely Acuña MD [address] [place] [address] [phone] PCP - General Internal Medicine 02/02/22 06/10/22 Ben Aguilar MD [address] [place] [address] PCP - General Internal Medicine 06/11/22 Brandon Anguiano MD Specialist Cardiovascular Disease 07/17/21 documented as of this encounter
--- OUTSIDE RECORDS SUMMARY | 2025-07-22 13:39 | XMS_ITS | Encounter Summary ---
Author Organization [facility] Address [address] [place] [address] Care Team Providers Care Field Control Inspector Name Role Phone Regine Serrano MD Primary Care Provider Robyn Jonny Cook PA-C Primary Care Provider Unavail able Brandon Anguiano MD Unavailable Chely Acuña MD Primary Care Provider [phone] Ben Aguilar MD Primary Care Provider + Reason for Referral * Non DANNIE (Urgent) - Authorized/Booked Specialty Diagnoses / Procedures Referred By Contac t Referred To Contact Rheumatology Procedures REFERRAL TO RHEUMATOLOGY Jonny Giron PA-C [address] [place] [address] Rheum/[place] [address] [place] [address] Referral ID Status Reason Start Date Expiration Date V isits Requested Visits Authorized [id number] Authorized/B ooked 09/29/2019 09/28/2020 1 1 Encounter Details Date Type Department Care Team Description 09/29/2019 Orders Only Medicine/Pediatrics - [address] [phone] Jonny Giron PA-C Social History Tobacco Use [...] on filedocumented in this encounter Care Teams Field Control Inspector Relationship Specialty Start Date End Date Regine Serrano MD PCP - General Internal Medicine 10/08/17 06/25/21 Jonny Giron PA-C PCP - General Med/Peds 06/26/21 02/01/22 Chely Acuña MD [address] [place] [address] [phone] PCP - General Internal Medicine 02/02/22 06/10/22 Ben Aguilar MD [address] [place] [address] [phone] PCP - General Internal Medicine 06/11/22 Brandon Anguiano MD Specialist Cardiovascular Disease 07/17/21 documented as of this encounter
--- OUTSIDE RECORDS SUMMARY | 2025-07-22 13:39 | XMS_ITS | Encounter Summary ---
Author Organization [facility] Address [address] [place] [address] Care Team Providers Care Commercial Finance Manager Name Role Phone Regine Serrano MD Primary Care Provider Robyn Jonny Cook PA-C Primary Care Provider Unavail able Brandon Anguiano MD Unavailable Chely Acuña MD Primary Care Provider [phone] Ben Aguilar MD Primary Care Provider + Encounter Details Date Type Department Care Team Description 11/17/2018 Cycle Analyst Report Medical Records [address] [place] [address] 70843 Allan Anand MD Social History Tobacco Use [...] on filedocumented in this encounter Care Teams Commercial Finance Manager Relationship Specialty Start Date End Date Regine Serrano MD PCP - General Internal Medicine 10/08/17 06/25/21 Jonny Giron PA-C PCP - General Med/Peds 06/26/21 02/01/22 Chely Acuña MD [address] [place] [address] [phone] PCP - General Internal Medicine 02/02/22 06/10/22 Ben Aguilar MD [address] [place] [address] 01522 PCP - General Internal Medicine 06/11/22 Brandon Anguiano MD Specialist Cardiovascular Disease 07/17/21 documented as of this encounter
== END 2025-07-22 14:15 | disposition home or self-care (01) ==
LOC: HO.RHES 13:02
PROVIDERS: Visit Provider Internal Medicine Rheumatology
DX: M05.79 Rheumatoid arthritis with rheumatoid factor of multiple sites without organ or systems involvement (principal); Z79.899 Other long term (current) drug therapy; M17.11 Unilateral primary osteoarthritis, right knee
CPT/HCPCS: 20610; 99213

== ENCOUNTER → 2025-07-22 13:01 | Outpatient (BNVA) | payer MEDICARE, SELFPAY | PROVIDERS: Visit Provider Internal Medicine Rheumatology | DX: M05.79 Rheumatoid arthritis with rheumatoid factor of multiple sites without organ or systems involvement (principal); M17.11 Unilateral primary osteoarthritis, right knee; Z79.631 Long term (current) use of antimetabolite agent; Z79.899 Other long term (current) drug therapy | CPT/HCPCS: 20610; 99212; J2003; J3300 ==

== ENCOUNTER 2025-10-25 09:24 | Outpatient (REF) | payer MEDICARE, SELFPAY ==
--- OUTSIDE RECORDS SUMMARY | 2025-10-25 11:06 | XMS_ITS | Encounter Summary ---
Author Organization [facility] Address [address] [place] [address] Care Team Providers Care Tow Driver Name Role Phone Jah Batista MD Primary Care Provider Unavail able Regine Serrano MD Primary Care Provider Jonny Mayfield PA-C Primary Care Provider Unavail able Brandon Anguiano MD Unavailable Chely Acuña MD Primary Care Provider [phone] Ben Aguilar MD Primary Care Provider + Encounter Details Date Type Department Care Team Description 08/15/2016 [facility] Medical Records [address] [place] [address] [phone] Abstract, Provider Social History Tobacco Use Types [...] on filedocumented in this encounter Care Teams Tow Driver Relationship Specialty Start Date End Date Jah Batista MD PCP - General Internal Medicine 07/18/16 10/07/17 Regine Serrano MD PCP - General Internal Medicine 10/08/17 06/25/21 Jonny Giron PA-C PCP - General Med/Peds 06/26/21 02/01/22 Chely Acuña MD [address] [place] [address] [phone] PCP - General Internal Medicine 02/02/22 06/10/22 Ben Aguilar MD [address] [place] [address] 72803 PCP - General Internal Medicine 06/11/22 Brandon Anguiano MD Specialist Cardiovascular Disease 07/17/21 documented as of this encounter
--- OUTSIDE RECORDS SUMMARY | 2025-10-25 11:06 | XMS_ITS | Encounter Summary ---
Author Organization [facility] Address [address] [place] [address] Care Team Providers Care Warehouse Loader Name Role Phone Jah Batista MD Primary Care Provider Unavail able Mik Macias MD Primary Care Provider Unavailab Jah Rousseau MD Primary Care Provider Unavail able Regine Serrano MD Primary Care Provider Robyn Jonny Cook PA-C Primary Care Provider Unavail able Brandon Anguiano MD Unavailable Chely Acuña MD Primary Care Provider [phone] Ben Aguilar MD Primary Care Provider + Encounter Details Date Type Department Care Team Description 05/07/2016 Industrial Engineering Director Report Medical Records [address] [place] [address] 277[address] Pedro Pablo Benjamin MD Social History Tobacco [...] on filedocumented in this encounter Care Teams Warehouse Loader Relationship Specialty Start Date End Date Jah Batista MD PCP - General 11/13/04 06/14/16 Mik Macias MD PCP - General Family Practice 06/15/16 07/17/16 Jah Batista MD PCP - General Internal Medicine 07/18/16 10/07/17 Regine Serrano MD PCP - General Internal Medicine 10/08/17 06/25/21 Jonny Giron PA-C PCP - General Med/Peds 06/26/21 02/01/22 Chely Acuña MD [address] [place] [address] [phone] PCP - General Internal Medicine 02/02/22 06/10/22 Ben Aguilar MD [address] [place] [address] [phone] PCP - General Internal Medicine 06/11/22 Brandon Anguiano MD Specialist Cardiovascular Disease 07/17/21 documented as of this encounter
--- OUTSIDE RECORDS SUMMARY | 2025-10-25 11:06 | XMS_ITS | Encounter Summary ---
Author Organization [facility] Address [address] [place] [address] Care Team Providers Care Supervisor Home Restoration Service Name Role Phone Regine Serrano MD Primary Care Provider Robyn Jonny Cook PA-C Primary Care Provider Unavail able Brandon Anguiano MD Unavailable Chely cAuña MD Primary Care Provider [phone] Ben Aguilar MD Primary Care Provider + Encounter Details Date Type Department Care Team Description 05/08/2021 Release of Information Medical Records [address] [place] [id number] [place] [address] Social History Tobacco Use Types Packs/Day Years [...] on filedocumented in this encounter Care Teams Supervisor Home Restoration Service Relationship Specialty Start Date End Date Regine Serrano MD PCP - General Internal Medicine 10/08/17 06/25/21 Jonny Giron PA-C PCP - General Med/Peds 06/26/21 02/01/22 Chely Acuña MD [address] [place] [address] PCP - General Internal Medicine 02/02/22 06/10/22 Ben Aguilar MD [address] [place] [address] 01020 PCP - General Internal Medicine 06/11/22 Brandon Anguiano MD Specialist Cardiovascular Disease 07/17/21 documented as of this encounter
--- OUTSIDE RECORDS SUMMARY | 2025-10-25 11:06 | XMS_ITS | Encounter Summary ---
Author Organization [facility] Address [address] [place] [address] Care Team Providers Care Rental Boats Caretaker Name Role Phone Jah Batista MD Primary Care Provider Unavail able Mik Macias MD Primary Care Provider Unavailab Jah Rousseau MD Primary Care Provider Unavail able Regine Serrano MD Primary Care Provider Robyn Jonny Cook PA-C Primary Care Provider Unavail able Brandon Anguiano MD Unavailable Chely Acuña MD Primary Care Provider [phone] Ben Aguilar MD Primary Care Provider + Encounter Details Date Type Department Care Team Description 01/18/2016 Pie Maker Machine Report Medical Records [address] [place] [address] Pedro Pablo Benjamin MD Social History Tobacco [...] on filedocumented in this encounter Care Teams Rental Boats Caretaker Relationship Specialty Start Date End Date Jah Batista MD PCP - General 11/13/04 06/14/16 Mik Macias MD PCP - General Family Practice 06/15/16 07/17/16 Jah Batista MD PCP - General Internal Medicine 07/18/16 10/07/17 Regine Serrano MD PCP - General Internal Medicine 10/08/17 06/25/21 Jonny Giron PA-C PCP - General Med/Peds 06/26/21 02/01/22 Chely Acuña MD [address] [place] [address] [phone] PCP - General Internal Medicine 02/02/22 06/10/22 Ben Aguilar MD [address] [place] [address] [phone] PCP - General Internal Medicine 06/11/22 Brandon Anguiano MD Specialist Cardiovascular Disease 07/17/21 documented as of this encounter
--- OUTSIDE RECORDS SUMMARY | 2025-10-25 11:06 | XMS_ITS | Encounter Summary ---
Author Organization [facility] Address [address] [place] [address] Care Team Providers Care Inventory Control Planner Name Role Phone Regine Serrano MD Primary Care Provider Robyn Jonny Cook PA-C Primary Care Provider Unavail able Brandon Anguiano MD Unavailable Chely Acuña MD Primary Care Provider [phone] Ben Aguilar MD Primary Care Provider + Reason for Referral * Non DANNIE (Urgent) - Closed Specialty Diagnoses / Procedures Referred By Contac t Referred To Contact Rheumatology Procedures REFERRAL TO RHEUMATOLOGY Jonny Giron PA-C [address] [place] [address] Rheum/[place] [address] [place] [address] Referral ID Status Reason Start Date Expiration Date V isits Requested Visits Authorized [id number] SENT TO NURSE Closed 12/20/2017 12/20/2018 1 1 Encounter Details Date Type Department Care Team Description 12/20/2017 Orders Only Medicine/Pediatrics - [address] [phone] Jonny Giron PA-C Social History Tobacco Use [...] on filedocumented in this encounter Care Teams Inventory Control Planner Relationship Specialty Start Date End Date Regine Serrano MD PCP - General Internal Medicine 10/08/17 06/25/21 Jonny Giron PA-C PCP - General Med/Peds 06/26/21 02/01/22 Chely Acuña MD [address] [place] [address] [phone] PCP - General Internal Medicine 02/02/22 06/10/22 Ben Aguilar MD [address] [place] [address] [phone] PCP - General Internal Medicine 06/11/22 Brandon Anguiano MD Specialist Cardiovascular Disease 07/17/21 documented as of this encounter
--- OUTSIDE RECORDS SUMMARY | 2025-10-25 11:06 | XMS_ITS | Encounter Summary ---
Author Organization [facility] Address [address] [place] [address] Care Team Providers Care Student Development Advisor Name Role Phone Regine Serrano MD Primary Care Provider Robyn Jonny Cook PA-C Primary Care Provider Unavail able Brandon Anguiano MD Unavailable Chely Acuña MD Primary Care Provider [phone] Ben Aguilar MD Primary Care Provider + Encounter Details Date Type Department Care Team Description 09/19/2020 SCAN Medical Records [address] [place] [address] [phone] Mik Dotson Social History Tobacco Use Types [...] Date/Time Associated Diagnosis Comments OUTSIDE EKG Routine 09/19/2020 documented in this encounter Results * OUTSIDE EKG (09/19/2020) Provider Default CARDIOLOGY documented in this encounter Visit Diagnoses Not on filedocumented in this encounter Care Teams Student Development Advisor Relationship Specialty Start Date End Date Regine Serrano MD PCP - General Internal Medicine 10/08/17 06/25/21 Jonny Giron PA-C PCP - General Med/Peds 06/26/21 02/01/22 Chely Acuña MD [address] [place] [phone] PCP - General Internal Medicine 02/02/22 06/10/22 Ben Aguilar MD [address] [place] [address] [phone] PCP - General Internal Medicine 06/11/22 Brandon Anguiano MD Specialist Cardiovascular Disease 07/17/21 documented as of this encounter
--- OUTSIDE RECORDS SUMMARY | 2025-10-25 11:06 | XMS_ITS | Encounter Summary ---
Author Organization [facility] Address [address] [place] [address] Care Team Providers Care Business Technology Professor Name Role Phone Regine Serrano MD Primary Care Provider Robyn Jonny Cook PA-C Primary Care Provider Unavail able Brandon Anguiano MD Unavailable Chely Acuña MD Primary Care Provider [phone] Ben Aguilar MD Primary Care Provider + Encounter Details Date Type Department Care Team Description 10/31/2017 Home Health Certification Medical Records [address] [place] [address] 20294 Social History Tobacco Use Types Packs/Day Years [...] on filedocumented in this encounter Care Teams Business Technology Professor Relationship Specialty Start Date End Date Regine Serrano MD PCP - General Internal Medicine 10/08/17 06/25/21 Jonny Giron PA-C PCP - General Med/Peds 06/26/21 02/01/22 Chley Acuña MD [address] [place] [address] [phone] PCP - General Internal Medicine 02/02/22 06/10/22 Ben Aguilar MD [address] [place] [address] 67648 PCP - General Internal Medicine 06/11/22 Brandon Anguiano MD Specialist Cardiovascular Disease 07/17/21 documented as of this encounter
--- OUTSIDE RECORDS SUMMARY | 2025-10-25 11:06 | XMS_ITS | Encounter Summary ---
Author Organization [facility] Address [address] [place] [address] Care Team Providers Care Corsetier Name Role Phone Regine Serrano MD Primary Care Provider Robyn Jonny Cook PA-C Primary Care Provider Unavail able Brandon Anguiano MD Unavailable Chely Acuña MD Primary Care Provider [phone] Ben Aguilar MD Primary Care Provider + Encounter Details Date Type Department Care Team Description 02/17/2018 Deputy Coroner Investigator Report Medical Records [address] [place] [address] Allan Anand MD Social History Tobacco Use [...] on filedocumented in this encounter Care Teams Corsetier Relationship Specialty Start Date End Date Regine Serrano MD PCP - General Internal Medicine 10/08/17 06/25/21 Jonny Giron PA-C PCP - General Med/Peds 06/26/21 02/01/22 Chely Acuña MD [address] [place] [address] [phone] PCP - General Internal Medicine 02/02/22 06/10/22 Ben Aguilar MD [address] [place] [address] [phone] PCP - General Internal Medicine 06/11/22 Brandon Anguiano MD Specialist Cardiovascular Disease 07/17/21 documented as of this encounter
--- OUTSIDE RECORDS SUMMARY | 2025-10-25 11:06 | XMS_ITS | Encounter Summary ---
Author Organization [facility] Address [address] [place] [address] Care Team Providers Care Flour Broker Name Role Phone Jah Batista MD Primary Care Provider Unavail able Mik Macias MD Primary Care Provider Unavailab aJh Rousseau MD Primary Care Provider Unavail able Regine Serrano MD Primary Care Provider Robyn Jonny Cook PA-C Primary Care Provider Unavail able Brandon Anguiano MD Unavailable Chely Acuña MD Primary Care Provider [phone] Ben Aguilar MD Primary Care Provider + Encounter Details Date Type Department Care Team Description 03/28/2015 LEATHER CRAFTER/MassPat Report Medical Records [address] [place] [address] 64[address] Abstract, Provider Social History Tobacco Use Types [...] on filedocumented in this encounter Care Teams Flour Broker Relationship Specialty Start Date End Date Jah Batista MD PCP - General 11/13/04 06/14/16 Mik Macias MD PCP - General Family Practice 06/15/16 07/17/16 Jah Batista MD PCP - General Internal Medicine 07/18/16 10/07/17 Regine Serrano MD PCP - General Internal Medicine 10/08/17 06/25/21 Jonny Giron PA-C PCP - General Med/Peds 06/26/21 02/01/22 Chely Acuña MD [address] [place] [address] [phone] PCP - General Internal Medicine 02/02/22 06/10/22 Ben Aguilar MD [address] [place] [address] 13161 PCP - General Internal Medicine 06/11/22 Brandon Anguiano MD Specialist Cardiovascular Disease 07/17/21 documented as of this encounter
--- OUTSIDE RECORDS SUMMARY | 2025-10-25 11:06 | XMS_ITS | Encounter Summary ---
Author Organization [facility] Address [address] [place] [address] Care Team Providers Care Gas Fitter Apprentice Name Role Phone Jonny Giron PA-C Primary Care Provider Unavail able Brandon Anguiano MD Unavailable Chely Acuña MD Primary Care Provider Ben Aguilar MD Primary Care Provider + Reason for Visit * Reason Onset Date Comments preop exam 07/21/2021 EKG Encounter Details Date Type Department Care Team Description 07/21/2021 Telephone Adult Medicine [address] [phone] Jonny Giron PA-C preop exam (EKG) Social [...] Reminder: Please Fax EKG to pre op: [phone]. Thank you. * Telephone Encounter - Sangeeta Gooden - 07/21/2021 1:18 PM EDT Call from Surgeon Office: Please fax EKG to: [phone] from patient's most recent Pre Op visit at your earliest convenience. Thank you, much appreciated. documented in this encounter Plan of Treatment Not on file documented as of this encounter Visit Diagnoses Not on filedocumented in this encounter Care Teams Gas Fitter Apprentice Relationship Specialty Start Date End Date Jonny Giron PA-C PCP - General Med/Peds 06/26/21 02/01/22 Chely Acuña MD [address] [place] [address] [phone] PCP - General Internal Medicine 02/02/22 06/10/22 Ben Aguilar MD [address] [place] [address] 0[address]20 PCP - General Internal Medicine 06/11/22 Brandon Anguiano MD Specialist Cardiovascular Disease 07/17/21 documented as of this encounter
--- OUTSIDE RECORDS SUMMARY | 2025-10-25 11:06 | XMS_ITS | Encounter Summary ---
Author Organization [facility] Address [address] [place] [address] Care Team Providers Care Assisted Living Care Manager Name Role Phone Regine Serrano MD Primary Care Provider Robyn Jonny Cook PA-C Primary Care Provider Unavail able Brandon Anguiano MD Unavailable Chely Acuña MD Primary Care Provider [phone] Ben Aguilar MD Primary Care Provider + Encounter Details Date Type Department Care Team Description 02/03/2018 Blackener Report Medical Records [address] [place] [address] [id number] Abstract, Provider Social History Tobacco Use Types [...] on filedocumented in this encounter Care Teams Assisted Living Care Manager Relationship Specialty Start Date End Date Regine Serrano MD PCP - General Internal Medicine 10/08/17 06/25/21 Jonny Giron PA-C PCP - General Med/Peds 06/26/21 02/01/22 Chely Acuña MD [address] [place] [address] [phone] PCP - General Internal Medicine 02/02/22 06/10/22 Ben Aguilar MD [address] [place] [address] [phone] PCP - General Internal Medicine 06/11/22 Brandon Anguiano MD Specialist Cardiovascular Disease 07/17/21 documented as of this encounter
--- OUTSIDE RECORDS SUMMARY | 2025-10-25 11:06 | XMS_ITS | Encounter Summary ---
Author Organization [facility] Address [address] [place] [address] Care Team Providers Care Assistant Construction Superintendent Name Role Phone Jah Batista MD Primary Care Provider Unavail able Mik Macias MD Primary Care Provider Unavailab Jah Rousseau MD Primary Care Provider Unavail able Regine Serrano MD Primary Care Provider Robyn Jonny Cook PA-C Primary Care Provider Unavail able Brandon Anguiano MD Unavailable Chely Acuña MD Primary Care Provider [phone] Ben Aguilar MD Primary Care Provider + Reason for Visit * Reason Onset Date Comments Mychart Rx Refill 04/18/2014 Encounter Details Date Type Department Care Team Description 04/18/2014 Refill Adult Medicine [address] [address] Jah Batista MD Mychart Rx Refill Social History Tobacco Use Types Packs/Day Years [...] encounter Miscellaneous Notes * Telephone Encounter - Perri Cardenas M.A. - 04/20/2014 11:49 AM EDT adriana [id number] * Telephone Encounter - Perri Cardenas M.A. - 04/20/2014 11:47 AM EDTFrom: DELIA GUO To: Jah Btaista MD Sent: Kareen April 18, 2014 1:15 PM Subject: Medication Renewal Request Original authorizing provider: MD Delia Wagner would like a refill of the following medications: ALBUTEROL 90 MCG/ACT IN AERS [Jah Batista MD] Preferred pharmacy: [id number] [place], [place] [address] [facility]. Comment: documented in this encounter Plan of Treatment Not on file documented as of this encounter Visit Diagnoses Not on filedocumented in this encounter Care Teams Assistant Construction Superintendent Relationship Specialty Start Date End Date Jah Batista MD PCP - General 11/13/04 06/14/16 Mik Macias MD PCP - General Family Practice 06/15/16 07/17/16 Jah Batista MD PCP - General Internal Medicine 07/18/16 10/07/17 Regine Serrano MD PCP - General Internal Medicine 10/08/17 06/25/21 Jonny Giron PA-C PCP - General Med/Peds 06/26/21 02/01/22 Chely Acuña MD [address] [place] [address] [phone] PCP - General Internal Medicine 02/02/22 06/10/22 Ben Aguilar MD [address] [place] [address] 01020 PCP - General Internal Medicine 06/11/22 Brandon Anguiano MD Specialist Cardiovascular Disease 07/17/21 documented as of this encounter
--- OUTSIDE RECORDS SUMMARY | 2025-10-25 11:06 | XMS_ITS | Encounter Summary ---
Author Organization [facility] Address [address] [place] [address] Care Team Providers Care Nut Threader Name Role Phone Regine Serrano MD Primary Care Provider Robyn Jonny Cook PA-C Primary Care Provider Unavail able Brandon Anguiano MD Unavailable Chely Acuña MD Primary Care Provider [phone] Ben Aguilar MD Primary Care Provider + Encounter Details Date Type Department Care Team Description 01/20/2018 Senior Biostatistician Report Medical Records [address] [place] [address] Herman Morrison PA-C [address] [place] [address] [phone] Social History Tobacco Use Types Packs/Day Years [...] on filedocumented in this encounter Care Teams Nut Threader Relationship Specialty Start Date End Date Regine Serrano MD PCP - General Internal Medicine 10/08/17 06/25/21 Jonny Giron PA-C PCP - General Med/Peds 06/26/21 02/01/22 Chely Acuña MD [address] [place] [address] 16768 PCP - General Internal Medicine 02/02/22 06/10/22 Bne Aguilar MD [address] [place] [address] 24433 PCP - General Internal Medicine 06/11/22 Brandon Anguiano MD Specialist Cardiovascular Disease 07/17/21 documented as of this encounter
--- OUTSIDE RECORDS SUMMARY | 2025-10-25 11:06 | XMS_ITS | Encounter Summary ---
Author Organization [facility] Address [address] [place] [address] Care Team Providers Care Articulation Officer Name Role Phone Regine Serrano MD Primary Care Provider Robyn Jonny Cook PA-C Primary Care Provider Unavail able Brandon Anguiano MD Unavailable Chely Acuña MD Primary Care Provider [phone] Ben Aguilar MD Primary Care Provider + Encounter Details Date Type Department Care Team Description 08/30/2020 Coagulant Dipper Report Medical Records [address] [place] [address] Darron Hampton MD Social History Tobacco Use [...] Date/Time Associated Diagnosis Comments OUTSIDE EKG Routine 08/29/2020 documented in this encounter Results * OUTSIDE EKG (08/29/2020) Provider Default CARDIOLOGY documented in this encounter Visit Diagnoses Not on filedocumented in this encounter Care Teams Articulation Officer Relationship Specialty Start Date End Date Regine Serrano MD PCP - General Internal Medicine 10/08/17 06/25/21 Jonny Giron PA-C PCP - General Med/Peds 06/26/21 02/01/22 Chely Acuña MD [address] [place] [address] [phone] PCP - General Internal Medicine 02/02/22 06/10/22 Ben Aguilar MD [address] [place] [address] [phone] PCP - General Internal Medicine 06/11/22 Brandon Anguiano MD Specialist Cardiovascular Disease 07/17/21 documented as of this encounter
--- OUTSIDE RECORDS SUMMARY | 2025-10-25 11:06 | XMS_ITS | Encounter Summary ---
Author Organization [facility] Address [address] [place] [address] Care Team Providers Care Block Handler Name Role Phone Jah Batista MD Primary Care Provider Unavail able Mik Macias MD Primary Care Provider Unavailab Jah Rousseau MD Primary Care Provider Unavail able Regine Serrano MD Primary Care Provider Robyn Jonny Cook PA-C Primary Care Provider Unavail able Brandon Anguiano MD Unavailable Chely Acuña MD Primary Care Provider [phone] Ben Aguilar MD Primary Care Provider + Encounter Details Date Type Department Care Team Description 09/08/2015 Controlled Substance Contract with Plan Medical Records [address] [place] [address] [phone] Abstract, Provider Social History Tobacco Use Types [...] on filedocumented in this encounter Care Teams Block Handler Relationship Specialty Start Date End Date Jah Batista MD PCP - General 11/13/04 06/14/16 Mik Macias MD PCP - General Family Practice 06/15/16 07/17/16 Jah Batista MD PCP - General Internal Medicine 07/18/16 10/07/17 Regine Serrano MD PCP - General Internal Medicine 10/08/17 06/25/21 Jonny Giron PA-C PCP - General Med/Peds 06/26/21 02/01/22 Chely Acuña MD [address] [place] [address] [phone] PCP - General Internal Medicine 02/02/22 06/10/22 Ben Aguilar MD [address] [place] [address] [phone] PCP - General Internal Medicine 06/11/22 Brandon Anguiano MD Specialist Cardiovascular Disease 07/17/21 documented as of this encounter
--- OUTSIDE RECORDS SUMMARY | 2025-10-25 11:06 | XMS_ITS | Encounter Summary ---
Author Organization [facility] Address [address] [place] [address] Care Team Providers Care Skiver Sock Linings Name Role Phone Jonny Giron PA-C Primary Care Provider Unavail able Brandon Anguiano MD Unavailable Chely Acuña MD Primary Care Provider [phone] Ben Aguilar MD Primary Care Provider + Encounter Details Date Type Department Care Team Description 08/10/2021 Pt. Non Urgent Medical Question Medicine/Pediatrics - [address] [phone] Jonny Giron PA-C Social History Tobacco Use [...] encounter Miscellaneous Notes * Telephone Encounter - Chata Houser M.A. - 08/11/2021 8:43 AM EDTFrom: Delia Baldwin To: Joey Giron Sent: 08/10/2021 6:10 PM EDT Subject: TDAP Jonny,We have a new grandson out of state. We were asked to be up to date with our TDAP ???.. Do we need to do this?? Delia documented in this encounter Plan of Treatment Not on file documented as of this encounter Visit Diagnoses Not on filedocumented in this encounter Care Teams Skiver Sock Linings Relationship Specialty Start Date End Date Jonny Giron PA-C PCP - General Med/Peds 06/26/21 02/01/22 Chely Acuña MD [address] [place] [address] [phone] PCP - General Internal Medicine 02/02/22 06/10/22 Ben Aguilar MD [address] [place] [phone] PCP - General Internal Medicine 06/11/22 Brandon Anguiano MD Specialist Cardiovascular Disease 07/17/21 documented as of this encounter
--- OUTSIDE RECORDS SUMMARY | 2025-10-25 11:06 | XMS_ITS | Encounter Summary ---
Author Organization [facility] Address [address] [place] [address] Care Team Providers Care Refrigerating Machine Operator Name Role Phone Jah Batista MD Primary Care Provider Unavail able Mik Macias MD Primary Care Provider Unavailab Jah Rousseau MD Primary Care Provider Unavail able Regine Serrano MD Primary Care Provider Robyn Jonny Cook PA-C Primary Care Provider Unavail able Brandon Anguiano MD Unavailable Chely Acuña MD Primary Care Provider [phone] Ben Aguilar MD Primary Care Provider + Reason for Visit * Reason Onset Date Comments Provider Call Back 04/05/2014 Encounter Details Date Type Department Care Team Description 04/05/2014 Telephone Adult Medicine [address] [address] Jah Batista MD Provider Call Back Social [...] going to speak with a doctor in [place]. * Telephone Encounter - Kathy Carbajalsanjuana - 04/05/2014 9:33 AM EDT Delia saw Dr Batista last week. She is waiting to hear from him about an MRI. He was to speak with a Surgeon in [place] about her right hip. Please advise. She is very uncomfortable. documented in this encounter Plan of Treatment Not on file documented as of this encounter Visit Diagnoses Not on filedocumented in this encounter Care Teams Refrigerating Machine Operator Relationship Specialty Start Date End Date Jah Batista MD PCP - General 11/13/04 06/14/16 Mik Macias MD PCP - General Family Practice 06/15/16 07/17/16 Jah Batista MD PCP - General Internal Medicine 07/18/16 10/07/17 Regine Serrano MD PCP - General Internal Medicine 10/08/17 06/25/21 Jonny Giron PA-C PCP - General Med/Peds 06/26/21 02/01/22 Chely Acuña MD [address] [place] [address] [id number] PCP - General Internal Medicine 02/02/22 06/10/22 Ben Aguilar MD [address] [place] [address] [id number] PCP - General Internal Medicine 06/11/22 Brandon Anguiano MD Specialist Cardiovascular Disease 07/17/21 documented as of this encounter
--- OUTSIDE RECORDS SUMMARY | 2025-10-25 11:07 | XMS_ITS | Encounter Summary ---
Author Organization [facility] Address [address] [place] [address] Care Team Providers Care Data Designer Name Role Phone Jah Batista MD Primary Care Provider Unavail able Regine Serrano MD Primary Care Provider Jonny Mayfield PA-C Primary Care Provider Unavail able Brandon Anguiano MD Unavailable Chely Acuña MD Primary Care Provider Ben Aguilar MD Primary Care Provider + Encounter Details Date Type Department Care Team Description 09/26/2017 [facility] Medical Records [address] [place] [address] Abstract, Provider Social History Tobacco Use Types [...] on filedocumented in this encounter Care Teams Data Designer Relationship Specialty Start Date End Date Jah Batista MD PCP - General Internal Medicine 07/18/16 10/07/17 Regine Serrano MD PCP - General Internal Medicine 10/08/17 06/25/21 Jonny Giron PA-C PCP - General Med/Peds 06/26/21 02/01/22 Chely Acuña MD [address] [place] [address] [id number] PCP - General Internal Medicine 02/02/22 06/10/22 Ben Aguilar MD [address] [place] [phone] PCP - General Internal Medicine 06/11/22 Brandon Anguiano MD Specialist Cardiovascular Disease 07/17/21 documented as of this encounter
--- OUTSIDE RECORDS SUMMARY | 2025-10-25 11:07 | XMS_ITS | Encounter Summary ---
Author Organization [facility] Address [address] [place] [address] Care Team Providers Care Bankruptcy Processor Name Role Phone Brandon Anguiano MD Unavailable Ben Aguilar MD Primary Care Provider + Encounter Details Date Type Department Care Team Description 03/06/2023 Business Doc Medical Records [address] [place] [address] 15180 Abstract, Provider Social History Tobacco Use Types [...] suspected to have Coronavirus/COVID-19? No / Unsure 03/05/2023 9:33 AM EDT documented as of this encounter Plan of Treatment Not on file documented as of this encounter Visit Diagnoses Not on filedocumented in this encounter Care Teams Bankruptcy Processor Relationship Specialty Start Date End Date Ben Aguilar MD [address] [place] [address] PCP - General Internal Medicine 06/11/22 Brandon Anguiano MD Specialist Cardiovascular Disease 07/17/21 documented as of this encounter
--- OUTSIDE RECORDS SUMMARY | 2025-10-25 11:07 | XMS_ITS | Encounter Summary ---
Author Organization [facility] Address [address] [place] [address] Care Team Providers Care Manager Corporate Name Role Phone Jah Batista MD Primary [...] Details Date Type Department Care Team Description 08/02/2014 Safety Officer Report Medical Records [address] [place] [phone] Francisco Jhaveri MD [address] [place] [address] [place] [address] Social History Tobacco Use Types Packs/Day Years [...] filedocumented in this encounter Care Teams Manager Corporate Relationship Specialty Start Date End Date Jah Batista MD PCP - General 11/13/04 06/14/16 Mik Macias MD PCP - General Family Practice 06/15/16 07/17/16 Jah Batista MD PCP - General Internal Medicine 07/18/16 10/07/17 Regine Serrano MD PCP - General Internal Medicine 10/08/17 06/25/21 Jonny Giron PA-C PCP - General Med/Peds 06/26/21 02/01/22 Chely Acuña MD [address] [place] [address] [phone] PCP - General Internal Medicine 02/02/22 06/10/22 Ben Aguilar MD [address] [place] [address] PCP - General Internal Medicine 06/11/22 Brandon Anguiano MD Specialist Cardiovascular Disease 07/17/21 documented as of this encounter
--- OUTSIDE RECORDS SUMMARY | 2025-10-25 11:07 | XMS_ITS | Encounter Summary ---
Author Organization [facility] Address [address] [place] [address] Care Team Providers Care Metals Analyst Name Role Phone Jah Batista MD Primary Care Provider Unavail able Mik Macias MD Primary Care Provider Unavailab Jah Rousseau MD Primary Care Provider Unavail able Regine Serrano MD Primary Care Provider Robyn Jonny Cook PA-C Primary Care Provider Unavail able Brandon Anguiano MD Unavailable Chely Acuña MD Primary Care Provider [phone] Ben Aguilra MD Primary Care Provider + Encounter Details Date Type Department Care Team Description 07/03/2010 Atm Mechanic Report Medical Records [address] [place] [address] Fabien Clark MD Social History Tobacco Use [...] on filedocumented in this encounter Care Teams Metals Analyst Relationship Specialty Start Date End Date Jah Batista MD PCP - General 11/13/04 06/14/16 Mik Macias MD PCP - General Family Practice 06/15/16 07/17/16 Jah Batista MD PCP - General Internal Medicine 07/18/16 10/07/17 Regine Serrano MD PCP - General Internal Medicine 10/08/17 06/25/21 Jonny Giron PA-C PCP - General Med/Peds 06/26/21 02/01/22 Chely Acuña MD [address] [place] [address] [phone] PCP - General Internal Medicine 02/02/22 06/10/22 Ben Aguilar MD [address] [place] [address] PCP - General Internal Medicine 06/11/22 Brandon Anguiano MD Specialist Cardiovascular Disease 07/17/21 documented as of this encounter
--- OUTSIDE RECORDS SUMMARY | 2025-10-25 11:07 | XMS_ITS | Encounter Summary ---
Author Organization [facility] Address [address] [place] [address] Care Team Providers Care Stock Patch Sawyer Name Role Phone Jah Batista MD Primary Care Provider Unavail able Mik Macias MD Primary Care Provider Unavailab Jah Rousseau MD Primary Care Provider Unavail able Regine Serrano MD Primary Care Provider Robyn Jonny Cook PA-C Primary Care Provider Unavail able Brandon Anguiano MD Unavailable Chely Acuña MD Primary Care Provider [phone] Ben Aguilar MD Primary Care Provider + Encounter Details Date Type Department Care Team Description 06/16/2014 Drop Hammer Set Up Operator Report Medical Records [address] [place] [id number] [place] [address] Social History Tobacco Use Types Packs/Day Years [...] on filedocumented in this encounter Care Teams Stock Patch Sawyer Relationship Specialty Start Date End Date Jah Batista MD PCP - General 11/13/04 06/14/16 Mik Macias MD PCP - General Family Practice 06/15/16 07/17/16 Jah Batista MD PCP - General Internal Medicine 07/18/16 10/07/17 Regine Serrano MD PCP - General Internal Medicine 10/08/17 06/25/21 Jonny Giron PA-C PCP - General Med/Peds 06/26/21 02/01/22 Chely Acuña MD [address] [place] [address] [phone] PCP - General Internal Medicine 02/02/22 06/10/22 Ben Aguilar MD [address] [place] [address] PCP - General Internal Medicine 06/11/22 Brandon Anguiano MD Specialist Cardiovascular Disease 07/17/21 documented as of this encounter
--- OUTSIDE RECORDS SUMMARY | 2025-10-25 11:07 | XMS_ITS | Encounter Summary ---
Author Organization [facility] Address [address] [place] [address] Care Team Providers Care Head Of Music Name Role Phone Regine Serrano MD Primary Care Provider Robyn Jonny Cook PA-C Primary Care Provider Unavail able Brandon Anguiano MD Unavailable Chely Acuña MD Primary Care Provider [phone] Ben Aguilar MD Primary Care Provider + Encounter Details Date Type Department Care Team Description 09/28/2020 Pt. Non Urgent Medical Question Medicine/Pediatrics - [address] [phone] Jonny Giron PA-C Social History Tobacco Use [...] as of this encounter Progress Notes * Katja Beck M.A. - 09/29/2020 9:53 AM ESTFrom: Delia Baldwin To: Jonny Giron PA-C Sent: 09/28/2020 7:19 PM EST Subject: Brooke nicholas just wanted to touch base. My shoulder replacement is scheduled for October [address] Dotson. I have a new cushion assembler, Dr Antonino Linn, she checked all the pathology on my tissue & synovial fluid samples from my joint replacements and cervical fusion. Changing my diagnosis. Negative on the RA. Still not explaining much. But I will see her again after recovery. documented in this encounter Plan of Treatment Not on file documented as of this encounter Visit Diagnoses Not on filedocumented in this encounter Care Teams Head Of Music Relationship Specialty Start Date End Date Regine Serrano MD PCP - General Internal Medicine 10/08/17 06/25/21 Jonny Giron PA-C PCP - General Med/Peds 06/26/21 02/01/22 Chely Acuña MD [address] [place] [phone] PCP - General Internal Medicine 02/02/22 06/10/22 Ben Aguilar MD [address] [place] [address] [phone] PCP - General Internal Medicine 06/11/22 Brandon Anguiano MD Specialist Cardiovascular Disease 07/17/21 documented as of this encounter
--- OUTSIDE RECORDS SUMMARY | 2025-10-25 11:07 | XMS_ITS | Encounter Summary ---
Author Organization [facility] Address [address] [place] [address] Care Team Providers Care Inspector Air Carrier Name Role Phone Regine Serrano MD Primary Care Provider Robyn Jonny Cook PA-C Primary Care Provider Unavail able Brandon Anguiano MD Unavailable Chely Acuña MD Primary Care Provider [phone] Ben Aguilar MD Primary Care Provider + Reason for Referral * Non DANNIE (Urgent) - Authorized/Booked Specialty Diagnoses / Procedures Referred By Contac t Referred To Contact Rheumatology Procedures REFERRAL TO RHEUMATOLOGY Jonny Giron PA-C [address] [place] [address] Rheum/Clements [address] [place] [address] Referral ID Status Reason Start Date Expiration Date V isits Requested Visits Authorized [id number] Authorized/B ooked 09/29/2019 09/28/2020 1 1 Encounter Details Date Type Department Care Team Description 09/29/2019 Orders Only Medicine/Pediatrics - [address] [phone] Jonny Giron PA-C Social History Tobacco Use [...] on filedocumented in this encounter Care Teams Inspector Air Carrier Relationship Specialty Start Date End Date Regine Serrano MD PCP - General Internal Medicine 10/08/17 06/25/21 Jonny Giron PA-C PCP - General Med/Peds 06/26/21 02/01/22 Chely Acuña MD [address] [place] [address] [phone] PCP - General Internal Medicine 02/02/22 06/10/22 Ben Aguilar MD [address] [place] [address] [phone] PCP - General Internal Medicine 06/11/22 Brandon Anguiano MD Specialist Cardiovascular Disease 07/17/21 documented as of this encounter
--- OUTSIDE RECORDS SUMMARY | 2025-10-25 11:07 | XMS_ITS | Encounter Summary ---
Author Organization [facility] Address [address] [place] [address] Care Team Providers Care Bump Grader Operator Name Role Phone Jah Batista MD Primary Care Provider Unavail Regine Sauceda MD Primary Care Provider Robyn Jonny Cook PA-C Primary Care Provider Unavail able Brandon Anguiano MD Unavailable Chely Acuña MD Primary Care Provider [phone] Ben Aguilar MD Primary Care Provider + Encounter Details Date Type Department Care Team Description 08/05/2017 [facility] Medical Records [address] [place] [address] Abstract, Provider Social History Tobacco Use Types [...] on filedocumented in this encounter Care Teams Bump Grader Operator Relationship Specialty Start Date End Date Jah Batista MD PCP - General Internal Medicine 07/18/16 10/07/17 Regine Serrano MD PCP - General Internal Medicine 10/08/17 06/25/21 Jonny Giron PA-C PCP - General Med/Peds 06/26/21 02/01/22 Chely Acuña MD [address] [place] [address] [phone] PCP - General Internal Medicine 02/02/22 06/10/22 Ben Aguilar MD [address] [place] [address] PCP - General Internal Medicine 06/11/22 Brandon Anguiano MD Specialist Cardiovascular Disease 07/17/21 documented as of this encounter
--- OUTSIDE RECORDS SUMMARY | 2025-10-25 11:07 | XMS_ITS | Encounter Summary ---
Author Organization [facility] Address [address] [place] [address] Care Team Providers Care Parts Expediter Name Role Phone Jah Batsita MD Primary Care Provider Unavail able Mik Macias MD Primary Care Provider Unavailab Jah Rousseau MD Primary Care Provider Unavail able Regine Serrano MD Primary Care Provider Robyn Jonny Cook PA-C Primary Care Provider Unavail able Brandon Anguiano MD Unavailable Chely Acuña MD Primary Care Provider [phone] Ben Aguilar MD Primary Care Provider + Encounter Details Date Type Department Care Team Description 06/30/2014 Bar Pilot Report Medical Records [address] [place] [address] Jeremy Macias MD [address] [place] [address] Social History Tobacco Use Types Packs/Day Years [...] on filedocumented in this encounter Care Teams Parts Expediter Relationship Specialty Start Date End Date Jah Batista MD PCP - General 11/13/04 06/14/16 Mik Macias MD PCP - General Family Practice 06/15/16 07/17/16 Jah Batista MD PCP - General Internal Medicine 07/18/16 10/07/17 Regine Serrano MD PCP - General Internal Medicine 10/08/17 06/25/21 Jonny Giron PA-C PCP - General Med/Peds 06/26/21 02/01/22 Chely Acuña MD [address] [place] [address] [phone] PCP - General Internal Medicine 02/02/22 06/10/22 Ben Aguilar MD [address] [place] [address] PCP - General Internal Medicine 06/11/22 Brandon Anguiano MD Specialist Cardiovascular Disease 07/17/21 documented as of this encounter
--- OUTSIDE RECORDS SUMMARY | 2025-10-25 11:07 | XMS_ITS | Encounter Summary ---
Author Organization [facility] Address [address] [place] [address] Care Team Providers Care Galley Stripper Name Role Phone Jah Batista MD Primary Care Provider Unavail able Mik Macias MD Primary Care Provider Unavailab Jah Rousseau MD Primary Care Provider Unavail able Regine Serrano MD Primary Care Provider Robyn Jonny Cook PA-C Primary Care Provider Unavail able Brandon Anguiano MD Unavailable Chely Acuña MD Primary Care Provider [phone] Ben Aguilar MD Primary Care Provider + Reason for Visit * Reason Onset Date Comments Mychart Rx Refill 09/06/2014 Encounter Details Date Type Department Care Team Description 09/06/2014 Refill Adult Medicine [address] [address] Jah Batista MD Mychart Rx Refill Social [...] encounter Miscellaneous Notes * Telephone Encounter - Alicia Sethi L.P.N. - 09/06/2014 10:08 AM EDT CONCEPCION 07/14/14 HAS BEEN ON THIS MEDICATION SINCE MARCH. SHOULD SHE BE ON CONTRACT? PT TOLD TO SCHEDULE AN APPT FOR A CONTRACT IF THIS MEDICATION IS NEEDED ON A REGULAR BASIS. Component Value Date NA 139 10/12/2013 K 4.2 10/12/2013 CO2 22.6 10/12/2013 CL 105 10/12/2013 BUN 11 10/12/2013 CREAT 0.7 10/12/2013 GLU 90 10/12/2013 CA 9.9 10/12/2013 GFR > 60 10/12/2013 * Telephone Encounter - Alicia Sethi L.P.N. - 09/06/2014 10:07 AM EDTFrom: Delia Pitts To: Jah Batista MD Sent: 09/06/2014 8:39 AM EDT Subject: Medication Renewal Request Original authorizing provider: MD Delia Wagner would like a refill of the following medications: hydrocodone-acetaminophen (NORCO) 5-325 MG per tablet [Jah Batista MD] Preferred pharmacy: [id number] [address] [facility]. Comment: documented in this encounter Plan of Treatment Not on file documented as of this encounter Visit Diagnoses Diagnosis Carpal tunnel syndrome, unspecified laterality- Primary documented in this encounter Care Teams Galley Stripper Relationship Specialty Start Date End Date Jah Batista MD PCP - General 11/13/04 06/14/16 Mik Macias MD PCP - General Family Practice 06/15/16 07/17/16 Jah Batista MD PCP - General Internal Medicine 07/18/16 10/07/17 Regine Serrano MD PCP - General Internal Medicine 10/08/17 06/25/21 Jonny Giron PA-C PCP - General Med/Peds 06/26/21 02/01/22 Chely Acuña MD [address] [place] [address] PCP - General Internal Medicine 02/02/22 06/10/22 Ben Aguilar MD [address] [place] [address] PCP - General Internal Medicine 06/11/22 Brandon Anguiano MD Specialist Cardiovascular Disease 07/17/21 documented as of this encounter
--- OUTSIDE RECORDS SUMMARY | 2025-10-25 11:07 | XMS_ITS | Encounter Summary ---
Author Organization [facility] Address [address] [place] [address] Care Team Providers Care Proposal Engineer Name Role Phone Jah Batista MD Primary Care Provider Unavail able Mik Macias MD Primary Care Provider Unavailab Jah Rousseau MD Primary Care Provider Unavail able Regine Serrano MD Primary Care Provider Robyn Jonny Cook PA-C Primary Care Provider Unavail able Brandon Anguiano MD Unavailable Chely Acuña MD Primary Care Provider [phone] Ben Aguilar MD Primary Care Provider + Encounter Details Date Type Department Care Team Description 01/31/2015 Web Knitter Report Medical Records [address] [place] [address] Allan Anand MD Social History Tobacco Use [...] on filedocumented in this encounter Care Teams Proposal Engineer Relationship Specialty Start Date End Date Jah Batista MD PCP - General 11/13/04 06/14/16 Mik Macias MD PCP - General Family Practice 06/15/16 07/17/16 Jah Batista MD PCP - General Internal Medicine 07/18/16 10/07/17 Regine Serrano MD PCP - General Internal Medicine 10/08/17 06/25/21 Jonny Giron PA-C PCP - General Med/Peds 06/26/21 02/01/22 Chely Acuña MD [address] [place] [address] [phone] PCP - General Internal Medicine 02/02/22 06/10/22 Ben Aguilar MD [address] [place] [address]404 PCP - General Internal Medicine 06/11/22 Brandon Anguiano MD Specialist Cardiovascular Disease 07/17/21 documented as of this encounter
--- OUTSIDE RECORDS SUMMARY | 2025-10-25 11:07 | XMS_ITS | Encounter Summary ---
Author Organization [facility] Address [address] [place] [address] Care Team Providers Care Industrial Insulator Name Role Phone Brandon Anguiano MD Unavailable Ben Aguilar MD Primary Care Provider + Encounter Details Date Type Department Care Team Description 04/02/2023 Business Doc Medical Records [address] [place] [address] Abstract, Provider Social History Tobacco Use Types [...] on filedocumented in this encounter Care Teams Industrial Insulator Relationship Specialty Start Date End Date Ben Aguilar MD [address] [place] [address]20 PCP - General Internal Medicine 06/11/22 Brandon Anguiano MD Specialist Cardiovascular Disease 07/17/21 documented as of this encounter
--- OUTSIDE RECORDS SUMMARY | 2025-10-25 11:07 | XMS_ITS | Encounter Summary ---
Author Organization [facility] Address [address] [place] [address] Care Team Providers Care Manager Of Network Name Role Phone Jah Batista MD Primary Care Provider Unavail able Regine Serrano MD Primary Care Provider Jonny Mayfield PA-C Primary Care Provider Unavail able Brandon Anguiano MD Unavailable Chely Acuña MD Primary Care Provider [phone] Ben Aguilar MD Primary Care Provider + Encounter Details Date Type Department Care Team Description 05/23/2017 [facility] Medical Records [address] [place] [phone] Abstract, Provider Social History Tobacco Use Types [...] filedocumented in this encounter Care Teams Manager Of Network Relationship Specialty Start Date End Date Jah Batista MD PCP - General Internal Medicine 07/18/16 10/07/17 Regine Serrano MD PCP - General Internal Medicine 10/08/17 06/25/21 Jonny Giron PA-C PCP - General Med/Peds 06/26/21 02/01/22 Chely Acuña MD [address] [place] [address] [phone] PCP - General Internal Medicine 02/02/22 06/10/22 Ben Aguilar MD [address] [place] [phone] PCP - General Internal Medicine 06/11/22 Brandon Anguiano MD Specialist Cardiovascular Disease 07/17/21 documented as of this encounter
--- OUTSIDE RECORDS SUMMARY | 2025-10-25 11:07 | XMS_ITS | Encounter Summary ---
Author Organization [facility] Address [address] [place] [address] Care Team Providers Care Delivery Table Feeder Name Role Phone Regine Serrano MD Primary Care Provider Robyn Jonny Cook PA-C Primary Care Provider Unavail able Brandon Anguiano MD Unavailable Chely Acuña MD Primary Care Provider [phone] Ben Aguilar MD Primary Care Provider + Encounter Details Date Type Department Care Team Description 10/06/2019 Orders Only Medicine/Pediatrics - [address] [phone] Jonny Giron PA-C Social History Tobacco Use [...] on filedocumented in this encounter Care Teams Delivery Table Feeder Relationship Specialty Start Date End Date Regine Serrano MD PCP - General Internal Medicine 10/08/17 06/25/21 Jonny Giron PA-C PCP - General Med/Peds 06/26/21 02/01/22 Chely Acuña MD [address] [place] [phone] PCP - General Internal Medicine 02/02/22 06/10/22 Ben Aguilar MD [address] [place] [address] PCP - General Internal Medicine 06/11/22 Brandon Anguiano MD Specialist Cardiovascular Disease 07/17/21 documented as of this encounter
--- OUTSIDE RECORDS SUMMARY | 2025-10-25 11:07 | XMS_ITS | Encounter Summary ---
Author Organization [facility] Address [address] [place] [address] Care Team Providers Care Field Cane Scaler Name Role Phone Jah Batista MD Primary Care Provider Unavail able Mik Macias MD Primary Care Provider Unavailab Jah Rousseau MD Primary Care Provider Unavail able Regine Serrano MD Primary Care Provider Robyn Jonny Cook PA-C Primary Care Provider Unavail able Brandon Anguiano MD Unavailable Chely Acuña MD Primary Care Provider [phone] Ben Aguilar MD Primary Care Provider + Encounter Details Date Type Department Care Team Description 01/25/2015 Spine Surgeon Report Medical Records [address] [place] [id number] Francisco Jhaveri MD [address] [place] [address] [place] [address] Social History Tobacco Use Types Packs/Day Years [...] filedocumented in this encounter Care Teams Field Cane Scaler Relationship Specialty Start Date End Date Jah Batista MD PCP - General 11/13/04 06/14/16 Mik Macias MD PCP - General Family Practice 06/15/16 07/17/16 Jah Batista MD PCP - General Internal Medicine 07/18/16 10/07/17 Regine Serrano MD PCP - General Internal Medicine 10/08/17 06/25/21 Jonny Grion PA-C PCP - General Med/Peds 06/26/21 02/01/22 Chely Acuña MD [address] [place] [address] [id number] PCP - General Internal Medicine 02/02/22 06/10/22 Ben Aguilar MD [address] [place] [address] PCP - General Internal Medicine 06/11/22 Brandon Anguiano MD Specialist Cardiovascular Disease 07/17/21 documented as of this encounter
--- OUTSIDE RECORDS SUMMARY | 2025-10-25 11:07 | XMS_ITS | Encounter Summary ---
Author Organization [facility] Address [address] [place] [address] Care Team Providers Care Crusher Loader Equipment Operator Name Role Phone Regine Serrano MD Primary Care Provider Robyn Jonny Cook PA-C Primary Care Provider Unavail able Brandon Anguiano MD Unavailable Chely Acuña MD Primary Care Provider [phone] Ben Aguilar MD Primary Care Provider + Encounter Details Date Type Department Care Team Description 01/14/2020 Snuff Box Finisher Report Medical Records [address] [place] [phone] Piero Mesa MD Social History Tobacco Use [...] on filedocumented in this encounter Care Teams Crusher Loader Equipment Operator Relationship Specialty Start Date End Date Regine Serrano MD PCP - General Internal Medicine 10/08/17 06/25/21 Jonny Giron PA-C PCP - General Med/Peds 06/26/21 02/01/22 Chely Acuña MD [address] [place] [address] [phone] PCP - General Internal Medicine 02/02/22 06/10/22 Ben Aguilar MD [address] [place] [phone] PCP - General Internal Medicine 06/11/22 Brandon Anguiano MD Specialist Cardiovascular Disease 07/17/21 documented as of this encounter
--- OUTSIDE RECORDS SUMMARY | 2025-10-25 11:07 | XMS_ITS | Encounter Summary ---
Author Organization [facility] Address [address] [place] [address] Care Team Providers Care Jewel Bearing Maker Name Role Phone Regine Serrano MD Primary Care Provider Robyn Jonny Cook PA-C Primary Care Provider Unavail able Brandon Anguiano MD Unavailable Chely Acuña MD Primary Care Provider [phone] Ben Aguilar MD Primary Care Provider + Encounter Details Date Type Department Care Team Description 03/15/2020 Guest Services Director Report Medical Records [address] [place] [phone] Piero Mesa MD Social History Tobacco Use [...] on filedocumented in this encounter Care Teams Jewel Bearing Maker Relationship Specialty Start Date End Date Regine Serrano MD PCP - General Internal Medicine 10/08/17 06/25/21 Jonny Giron PA-C PCP - General Med/Peds 06/26/21 02/01/22 Chely Acuña MD [address] [place] [address] [phone] PCP - General Internal Medicine 02/02/22 06/10/22 Ben Aguilar MD [address] [place] [phone] PCP - General Internal Medicine 06/11/22 Brandon Anguiano MD Specialist Cardiovascular Disease 07/17/21 documented as of this encounter
--- OUTSIDE RECORDS SUMMARY | 2025-10-25 11:07 | XMS_ITS | Encounter Summary ---
Author Organization [facility] Address [address] [place] [address] Care Team Providers Care Physician Coding Specialist Name Role Phone Brandon Anguiano MD Unavailable Ben Aguilar MD Primary Care Provider + Encounter Details Date Type Department Care Team Description 07/01/2023 Computer Operations Supervisor Report Medical Records [address] [place] [id number] Maurice Azul PA-C Social History Tobacco Use [...] on filedocumented in this encounter Care Teams Physician Coding Specialist Relationship Specialty Start Date End Date Ben Aguialr MD [address] [place] [address] PCP - General Internal Medicine 06/11/22 Brandon Anguiano MD Specialist Cardiovascular Disease 07/17/21 documented as of this encounter
--- OUTSIDE RECORDS SUMMARY | 2025-10-25 11:07 | XMS_ITS | Clinical Summary ---
Author Organization [facility] Address [address] [place] [address] Care Team Providers Care Windows Application Developer Name Role Phone Brandon Anguiano MD Unavailable Ben Aguilar MD Primary Care Provider + Allergies Active Allergy Reactions Severity Noted Date Comments Valacyclovir Diarrhea,Nausea and Vomiting 08/04 Medications Medication Sig Dispensed Refills Start Date End Date Status folic acid (FOLVITE) 1 MG tablet Take 1 Tablet by mouth daily. 0 12/18/2022 Active ALBUTEROL SULFATE 108 (90 Base) MCG/ACT Aero SolnIndications:Mild intermittent asthma without complication Inhale 2 Puffs into the lungs every 4 hours as needed for Cough or Wheezing. 54 g 1 10/23/2023 Active methotrexate 10 MG tablet Take 2 Tablets by mouth once a week. 0 11/01/2023 Active Hydroxychloroquine Sulfate 400 MG Tab Take 1 Tablet by mouth daily. 0 11/01/2023 Active celecoxib (CeleBREX) 200 MG capsule Take 1 Capsule by mouth daily. 30 Capsule 0 11/01/2023 Active hydrochlorothiazide (MICROZIDE) 12.5 MG capsuleIndications:Es sential hypertension Take 1 Capsule by mouth daily. 90 Capsule 1 04/01/2024 Active leflunomide (ARAVA) 10 MG tablet Take 1 Tablet by mouth daily. 30 Tablet 11 04/01/2024 Active gabapentin (NEURONTIN) 600 MG tablet Take 1 Tablet by mouth 3 times daily. 270 Tablet 1 06/09/2024 Active dicyclomine (BENTYL) 10 MG capsule Take 1 Capsule by mouth 3 times daily for 90 days. 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 Mesa 12/2019; completed 02/15/20 Shoulder pain, bilateral 05/13/2018 Overview[place] [facility] [place]ascular necrosis of bones of both hips 02/13/2018 Overview: THR L in 2013; THR -R in 2016 Essential hypertension 10/31/2017 Hyperlipidemia 10/31/2017 Overview: Calculated ASCVD risk, 3.5%. No statin recommended. Mild intermittent asthma without complic ation 08/22/2017 Carpal tunnel syndrome 01/07/2014 Overview: Bilateral; EMG 12/08 Planninf for R release with Dr. Anand, [facility] 08/2018 Severe obesity (BMI 35.0-35.9 with comor bidity) 12/03/2011 Depression 12/08/2010 Nephrolithiasis 10/05/2010 Overview: Kick; ESWL, Left Perinephric fluid 09/[address] [facility], Dr. Pedro Pablo Benjamin ED visit, left ureteral stone 11/2017 Resolved Problems Problem Noted Date Resolved Date Neuropathy 06/09/2024 06/09/2024 Near syncope 07/17/2021 09/10/2022 COVID-19 11/28/2020 05/10/2022 History of 2019 novel coronavirus disease (COVID -19) 11/09/2020 09/10/2022 History of shingles 08/04/2018 09/10/2022 Overview: 07/25/18 right face History of total knee arthroplasty, left 018 05/10/2022 Excessive or frequent menstruation 08/18/2007 10/21/2017 Immunizations Name Administration Dates Next Due COVID-19 (Moderna) 12/15/2021 COVID-19 (Pfizer) 03/19/2021,02/26/2021 COVID-19 (Pfizer) Pt Reported 02/26/2021 Influenza (> 6 Months) 10/14/2023,2020,08/05/2019,09/15,09/24/2016,08/24/2014 Influenza Vaccine-preservati ve Free-quadrivalent 4 Years 09/10/2022 Influenza Vaccine-quadrivale nt 4 Years Plus 09/06/2020,08/12/2017 Pneumoccoccal(Adult) Polysac charide PPSV23 01/11/2015 Shingrix (Patient reported) 09/05/2021 Shingrix (Recombinant zoster vaccine) 11/26/2021 ,09/05/2021 Tdap 11/01/2023,10/12/2013 Family History Medical History Relation Name Comments Hypercholesterolemia Father Hypertension Father Kidney Stones Father Diabetes Mother Blindness Negative Hx CA Breast Negative Hx CA Colon Negative Hx CA Ovarian Negative Hx Cataract Negative Hx Glaucoma Negative Hx Macular Degeneration Negative Hx Strabismus Negative Hx Uterine Cancer Negative Hx Relation Name Status Comments Father Mother Social History Tobacco Use Types Packs/Day Years Used Date Smoking Tobacco: Former Cigarettes Q uit: 11/25/1986 Smokeless Tobacco: Never Tobacco Cessation:Counseling Given: Not Answered Comments:x 20 years Alcohol Use Standard Drinks/Week Comments Yes 0 (1 standard drink = 0.6 oz pur e alcohol) socially Sex Assigned at Date Recorded Female 05/16/2024 12:57 PM EDT Job Start Date Occupation Industry Not on file Not on file Not on file Last Filed Vital Signs Vital Sign Reading Time Taken Comments Blood Pressure 117/80 07/20/2024 1:18 PM EDT Pulse 86 07/20/2024 1:18 PM EDT Temperature 36.4 C (97.6 F) 06/09/2024 11:16 AM EDT Respiratory Rate 16 06/09/2024 11:16 AM EDT Oxygen Saturation 95% 07/20/2024 1:18 PM EDT Inhaled Oxygen Concentration - - Weight 92.5 kg (204 lb) 07/20/2024 1:18 PM EDT Height 157.5 cm (5' 2 ) 07/20/2024 1:18 PM EDT Body Mass Index 37.31 07/20/2024 1:18 PM EDT Plan of Treatment Health Maintenance Due Date Last Done Comments CERVICAL CANCER SCREENING 01/13/20222018 (Completed), 10/21/2017 (Exception), 01/26/2016 (External Completion), Additional history exists DEPRESSION SCREEN 11/01/2024 11/01/2023, (Completed) BMI CHECK/ADVISE 11/25/2024 04/01/2024, 06/2024 (Completed), 11/01/2023, Additional history exists MAMMOGRAM 03/16/2025 03/16/2024, 03/2023, 03/05/2023, Additional history exists Covid-19 Vaccine (2022-12 4 season) 2025 12/15/2021, 03/19/2021, 02/26/2021, Additional history exists INFLUENZA (#1) 2025 10/14/2023, 08/25, 09/05/2021, Additional history exists BASELINE HEALTH EXAM 40-64 11/01/202511/01, 09/10/2022, 11/30/2019, Additional history exists COLON CANCER SCREENING 06/18/2027 06/18/2017 CHOLESTEROL SCREENING 04/27/2029 04/27/2024 , 11/08/2023, 03/27/2023, Additional history exists PNEUMOCOCCAL VACCINE FOR HIG H RISK PATIENTS (#2) 2029 01/11/2015 DTAP/TDAP/TD (3 - Td or Tdap) 11/01/2033 11/01/2023, 10/12/2013 HEPATITIS C SCREENING Completed 10/09/2019, 013 SHINGLES VACCINE Completed 11/26/2021, 10/2021, 09/05/2021 Care Teams Windows Application Developer Relationship Specialty Start Date End Date Ben Aguilar MD [address] [place] [id number] PCP - General Internal Medicine 06/11/22 Brandon Anguiano MD Specialist Cardiovascular Disease 07/17/21
--- OUTSIDE RECORDS SUMMARY | 2025-10-25 11:07 | XMS_ITS | Encounter Summary ---
Author Organization [facility] Address [address] [place] [address] Care Team Providers Care Health Professional Name Role Phone Jah Batista MD Primary Care Provider Unavail able Mik Macias MD Primary Care Provider Unavailab Jah Rousseau MD Primary Care Provider Unavail able Regine Serrano MD Primary Care Provider Robyn Jonny Cook PA-C Primary Care Provider Unavail able Brandon Anguiano MD Unavailable Chely Acuña MD Primary Care Provider [phone] Ben Aguilar MD Primary Care Provider + Encounter Details Date Type Department Care Team Description 10/28/2014 Care Associate Report Medical Records [address] [place] [address] [id number] Herman Morrison PA-C [address] [place] [address] [phone] Social History Tobacco Use Types Packs/Day Years [...] filedocumented in this encounter Care Teams Health Professional Relationship Specialty Start Date End Date Jah Batitsa MD PCP - General 11/13/04 06/14/16 Mik Macias MD PCP - General Family Practice 06/15/16 07/17/16 Jah Batista MD PCP - General Internal Medicine 07/18/16 10/07/17 Regine Serrano MD PCP - General Internal Medicine 10/08/17 06/25/21 Jonny Giron PA-C PCP - General Med/Peds 06/26/21 02/01/22 Chely Acuña MD [address] [place] [phone] PCP - General Internal Medicine 02/02/22 06/10/22 Ben Aguilar MD [address] [place] [address] PCP - General Internal Medicine 06/11/22 Brandon Anguiano MD Specialist Cardiovascular Disease 07/17/21 documented as of this encounter
--- OUTSIDE RECORDS SUMMARY | 2025-10-25 11:07 | XMS_ITS | Encounter Summary ---
Author Organization [facility] Address [address] [place] [address] Care Team Providers Care Distiller Name Role Phone Regine Serrano MD Primary Care Provider Robyn Jonny Cook PA-C Primary Care Provider Unavail able Brandon Anguiano MD Unavailable Chely Acuña MD Primary Care Provider [phone] Ben Aguilar MD Primary Care Provider + Encounter Details Date Type Department Care Team Description 02/23/2020 Pt. Non Urgent Medical Question Medicine/Pediatrics - [address] [phone] Jonny Giron PA-C Social History Tobacco Use [...] on filedocumented in this encounter Care Teams Distiller Relationship Specialty Start Date End Date Regine Serrano MD PCP - General Internal Medicine 10/08/17 06/25/21 Jonny Giron PA-C PCP - General Med/Peds 06/26/21 02/01/22 Chely Acuña MD [address] [place] [id number] PCP - General Internal Medicine 02/02/22 06/10/22 Ben Aguilar MD [address] [place] [phone] PCP - General Internal Medicine 06/11/22 Brandon Anguiano MD Specialist Cardiovascular Disease 07/17/21 documented as of this encounter
--- OUTSIDE RECORDS SUMMARY | 2025-10-25 11:07 | XMS_ITS | Clinical Summary ---
Author Organization [address] Address [address] [place] [address] Phone Care Team Providers Care Farm Service Consultant Name Role Phone Ben Aguilar MD Primary Care Pr ovider Allergies No known active allergies Medications celecoxib (CeleBREX) 200 mg capsule Take 2 capsules (400 mg total) by mouth 1 (one) time each day. Active folic acid (FOLVITE) 1 mg tablet Take 1 Tablet by mouth daily. Active hydroxychloroqui ne 400 mg tablet Take 1 Tablet by mouth daily. Active leflunomide (ARAVA) 10 mg tablet Take 1 Tablet by mouth daily. Active methotrexate (TREXALL) 10 mg tablet Take 2 Tablets by mouth once a week. Active fluticasone propionate (FLONASE) 50 mcg/actuation nasal sprayIndications :Seasonal allergic rhinitis due to pollen Administer 1 spray into each nostril 2 (two) times a day. Shake gently. Before first use, prime pump. After use, clean tip and replace cap. 16 g 1 04/30/20 25 2025 Active fexofenadine (IVET) 180 mg tabletIndication s:Seasonal allergic rhinitis due to pollen Take 1 tablet (180 mg total) by mouth 1 (one) time each day if needed (allergies). 90 tablet 1 04/30/20 25 2024 Active albuterol HFA (PROAIR HFA ; PROVENTIL HFA ; VENTOLIN HFA) 90 mcg/actuation inhaler Inhale 1 puff by mouth every 6 (six) hours if needed for wheezing. 6.7 g 1 04/30/20 25 2024 Active amitriptyline (ELAVIL) 10 mg tabletIndication s:Peroneal neuropathy, left,Tibial neuropathy, left TAKE ONE TABLET BY MOUTH AT BEDTIME 90 tablet 08/09/20 25 Active hydroCHLOROthiaz alma (MICROZIDE) 12.5 mg capsuleIndicatio ns:Essential hypertension TAKE ONE CAPSULE BY MOUTH EVERY DAY 90 capsule 1 09/27/20 25 Active gabapentin (NEURONTIN) 600 mg tabletIndication s:Cervical radiculopathy at C6,Tibial neuropathy, left,Peroneal neuropathy, left,Ulnar neuropathy of both upper extremities Take 1 tablet (600 mg total) by mouth 3 (three) times a day. 270 tablet 10/04/20 25 Active hydroCHLOROthiaz alma (MICROZIDE) 12.5 mg capsuleIndicatio ns:Essential hypertension TAKE ONE CAPSULE BY MOUTH EVERY DAY 90 capsule 1 03/30/20 25 2024 Discontinued gabapentin (NEURONTIN) 600 mg tabletIndication s:Cervical radiculopathy at C6,Tibial neuropathy, left,Peroneal neuropathy, left,Ulnar neuropathy of both upper extremities TAKE ONE TABLET BY MOUTH THREE TIMES A DAY 270 tablet 1 04/06/20 25 2024 Discontinued(R eoarturoer) Active Problems Problem Noted Date Diagnosed Date Seasonal allergic rhinitis due to pollen 025 Assessment & Plan (04/30/2025 1:11 PM EDT): Continue Flonase and Ivet Orders: fluticasone propionate (FLONASE) 50 mcg/actuation nasal spray; Administer 1 spray into each nostril 2 (two) times a day. Shake gently. Before first use, prime pump. After use, clean tip and replace cap. fexofenadine (IVET) 180 mg tablet; Take 1 tablet (180 [...] ng multiple sites with positive rheumatoid factor ([facility] V24, [facility] V28) 11/01/2023 Assessment & Plan (04/30/2025 1:11 [...] Overview (09/01/2024): Planning for surgical intervention with [facility] neurosurgery, Dr. Mesa 12/2019; completed 02/15/20 Assessment & Plan (04/30/2025 1:11 PM EDT): Continue gabapentin 600 mg 3 times daily Assessment & Plan (10/12/2024 1:38 PM EST): Orders: gabapentin (NEURONTIN) 600 mg tablet; Take 1 tablet (600 mg total) by mouth 3 (three) times a day. Shoulder pain, bilateral 05/13/2018 Overview (09/01/2024): Ortho, Dr. Anand [facility] Avascular necrosis of bones of both hips ([facility] V24, [facility] V28) 02/13/2018 Overview (09/01/2024): THR L in [...] Planninf for R release with Dr. Anand, [facility] 08/2018 Depression 12/08/2010 Nephrolithiasis 10/05/2010 Overview (09/01/2024): Amber; E[facility], Left Perinephric fluid 09/03 [facility], Dr. Pedro Pablo Benjamin ED visit, left ureteral stone 11/2017 Immunizations Immunization Administration Dates Next Due COVID-19 (Pfizer/Comirnaty) 11yo [...] TUMMY TUCK OTHER SURGICAL HISTORY 08/31 PROCEDURE: KS HYSTEROSCOPY ENDOMETRIAL ABLATION; COMMENT: TUBAL LIGATION PROCEDURE: HISTORICAL TUBAL LIGATION HYSTERECTOMY 2008 PROCEDURE: HISTORICAL HYSTERECTOMY; COMMENT: BREAST BIOPSY PROCEDURE: BX BREAST; PERC NEEDLE CORE W/IMAG GUID; COMMENT: Left BARIATRIC SURGERY 09/24/14 PROCEDURE: KS LAPS GSTRC RSTRICTIV PX LONGITUDINAL GASTRECTOMY; COMMENT: Fialo; sleeve HIP ARTHROPLASTY 04/12/2015 Left PROCEDURE: HISTORICAL HIP REPLACEMENT HIP ARTHROPLASTY 09/24/2017 Right PROCEDURE: HISTORICAL HIP REPLACEMENT BREAST SURGERY PROCEDURE: KS UNLISTED PROCEDURE BREAST; COMMENT: BREAST LIFT BREAST SURGERY PROCEDURE: KS UNLISTED PROCEDURE BREAST; COMMENT: implants TOTAL KNEE ARTHROPLASTY 01/07/2018 Left PROCEDURE: HISTORICAL TOTAL KNEE REPLACE; COMMENT: [facility] CARPAL TUNNEL RELEASE 2017 Bilateral PROCEDURE: HISTORICAL CARPAL TUNNEL REL; COMMENT: Right 10/01/18, left 10/2018; [facility] NECK SURGERY 02/15/2020 PROCEDURE: HISTORICAL NECK SURGERY; COMMENT: Anterior cervical discectomy C6-C7, interbody device, fusion, plate; Dr. Mesa, [facility] SHOULDER SURGERY 11/03/2020 Left PROCEDURE: HISTORICAL [...] Years Used Date Smoking Tobacco: Former Cigarettes 0 Q uit: 11/25/1986 Smokeless Tobacco: Never Alcohol [...] Livin g Live Births 1 1 1 Date Outcome GA Total [...] 04/30/2025 12:18 PM EDT Plan of Treatment Upcoming Encounters Date Type Department Care Team (Late st Contact Info) Description 11/09/2025 9:00 AM EST Office Visit Adult Medicine [address] [phone] Kateryna Allen PA [address] [place] [address] Health Maintenance Due Date Last Done Comments RSV Immunization Adult Patients (1 - Risk 50-74 years 1-dose series) 2014 HIV Screening 11/03/2022 Medicare Annual Wellness Visit 11/03/2022 Social Influencers of Health Screening 11/03/2022 COVID-19 Vaccine ( season) 2025 08/25/2024, 12/15/2021, 03/19/2021, Additional history [...] Procedure Name Priority Date/Time Associated Diagnosis Comments COMPREHENSIVE METABOLIC PANEL Routine 05/03/2025 7:55 AM EDT Mixed hyperlipidemia Prediabetes LIPID PANEL WITH REFLEX TO DIRECT LDL Routine 05/03/2025 7:55 AM EDT Mixed hyperlipidemia MG MAMMO DIGITAL SCREENING W TRENT BILAT Routine 03/29/2025 9:31 AM EDT Encounter for screening mammogram for breast cancer DEPRESSION SCREENING Routine 11/01/2023 HEPATITIS C SCREENING Routine 10/09/2019 COLONOSCOPY Routine 06/18/2017 PAP SMEAR Routine 03/25/2009 from Last 3 Months or Most Recently Relevant to Health Maintenance Results * (ABNORMAL) Lipid panel with reflex to direct LDL (05/03/2025 7:55 AM EDT) Cholesterol 248(H) 0 - 200 mg/dL LAB CHEMISTRY METHOD 05/03/2025 11:41 AM [facility] Triglycerides 89 0 - 150 mg/dL LAB CHEMISTRY METHOD 05/03/2025 11:41 AM [facility] HDL 64 >=40 mg/dL LAB CHEMISTRY METHOD 05/03/2025 11:41 AM [facility] LDL Calculated 166(H) 0 - 100 mg/dL LAB CHEMISTRY METHOD 05/03/2025 11:41 AM [facility] VLDL Cholesterol Isaias 17.8 mg/dL LAB CHEMISTRY METHOD 05/03/2025 11:41 AM [facility] Non HDL Chol. (LDL+VLDL) 184(H) <145 mg/dL LAB CHEMISTRY METHOD 05/03/2025 11:41 AM [facility] Chol/HDL Ratio 3.9 0.0 - 4.4 LAB CHEMISTRY METHOD 05/03/2025 11:41 AM [facility] Blood Venous blood specimen / Unknown Venipuncture / Unknown 05/03/2025 7:55 AM EDT 05/03/2025 7:55 AM EDT Ben Aguialr MD LAB BLOOD ORDERA BLES Final Result [facility] [address] [place] [address], * Comprehensive metabolic panel (05/03/2025 7:55 AM EDT) Sodium 142 133 - 145 mmol/L LAB CHEMISTRY METHOD 05/03/2025 11:41 AM [facility] Potassium 3.8 3.5 - 5.5 mmol/L LAB CHEMISTRY METHOD 05/03/2025 11:41 AM [facility] Chloride 106 96 - 110 mmol/L LAB CHEMISTRY METHOD 05/03/2025 11:41 AM [facility] CO2 28 21 - 32 mmol/L LAB CHEMISTRY METHOD 05/03/2025 11:41 AM [facility] Anion Gap 8 3 - 11 LAB CHEMISTRY METHOD 05/03/2025 11:41 AM [facility] Glucose 86 70 - 100 mg/dL LAB CHEMISTRY METHOD 05/03/2025 11:41 AM [facility] BUN 15 5 - 25 mg/dL LAB CHEMISTRY METHOD 05/03/2025 11:41 AM [facility] Creatinine 0.60 0.50 - 1.10 mg/dL LAB CHEMISTRY METHOD 05/03/2025 11:41 AM [facility] eGFR 103 >=60 mL/min/1. 73m2 LAB CHEMISTRY METHOD 05/03/2025 11:41 AM [facility] Comment:Calculation based on the Chronic Kidney Disease Epidemiology Collaboration (CKD-EPI) equation refit without adjustment for race. BUN/Creatinine Ratio 25.0 LAB CHEMISTRY METHOD 05/03/2025 11:41 AM EDT [facility] Calcium 9.4 8.5 - 10.5 mg/dL LAB CHEMISTRY METHOD 05/03/2025 11:41 AM [facility] AST (SGOT) 24 10 - 42 unit/L LAB CHEMISTRY METHOD 05/03/2025 11:41 AM [facility] ALT (SGPT) 31 10 - 60 unit/L LAB CHEMISTRY METHOD 05/03/2025 11:41 AM [facility] Alkaline Phosphatase 72 42 - 121 unit/L LAB CHEMISTRY METHOD 05/03/2025 11:41 AM [facility] Total Protein 6.8 6.0 - 8.0 g/dL LAB CHEMISTRY METHOD 05/03/2025 11:41 AM [facility] Albumin 3.8 3.2 - 5.0 g/dL LAB CHEMISTRY METHOD 05/03/2025 11:41 AM [facility] Total Bilirubin 0.6 0.0 - 1.4 mg/dL LAB CHEMISTRY METHOD 05/03/2025 11:41 AM [facility] Blood Venous blood specimen / Unknown Venipuncture / Unknown 05/03/2025 7:55 AM EDT 05/03/2025 7:55 AM EDT Ben Aguilar MD LAB BLOOD ORDERA BLES Final Result [facility] [address] [place] [address], [place] [phone] * MG Mammo Digital Screening w Trent bilat (03/29/2025 9:31 AM EDT) Anatomical Region Laterality Modality Breast Bilateral Mammography 03/29/2025 3:38 PM EDT Impressions 03/29/2025 3:44 PM EDT No mammographic evidence for malignancy. BI-RADS CATEGORY: 1 - NEGATIVE RECOMMENDATION: Screening bilateral mammogram is recommended in 1 year. Mammo Location: [facility], [address] [place] [address], [address], . -------- FINAL REPORT -------- Dictated By: Yecenia Lepe Dictated Date: 03/29/2025 15:38 ET Assigned Physician: Yecenia Lepe Reviewed and Electronically Signed By: Yecenia Lepe Signed Date: 03/29/2025 15:44 ET Workstation ID: [id number] Transcribed By: Self Edit Transcribed Date: 03/29/2025 [...] is recommended in 1 year. Mammo Location: [facility], [address] [place] [address], [address], . -------- FINAL REPORT -------- Dictated By: Yecenia Lepe Dictated Date: 03/29/2025 15:38 ET Assigned Physician: Yecenia Lepe Reviewed and Electronically Signed By: Yecenia Lepe Signed Date: 03/29/2025 15:44 ET Workstation ID: [id number] Transcribed By: Self Edit Transcribed Date: 03/29/2025 15:38 ET Ben Aguilar MD IMG BI PROCEDURE S Final Result * Depression Screening (11/01/2023) Depression Screening abstracted Historical Provider HEALTH MAINTENANCE Final Result * Hepatitis C Screening (10/09/2019) Hepatitis C Screening abstracted Historical Provider HEALTH MAINTENANCE Final Result * Colonoscopy (06/18/2017) Pathologist [facility] Colonoscopy no interpretation abstracted Anatomical Region Laterality Modality Other Historical Provider HEALTH MAINTENANCE Final Result * Pap Smear (03/25/2009) Pap smear no interpretation abstracted Historical Provider HEALTH MAINTENANCE Final Result from Last 3 Months or Most Recently Relevant to Health Maintenance Insurance MEDICARE Care Teams Farm Service Consultant Relationship Specialty Start Date End Date Ben Aguilar MD [address] [facility], [place] PCP - General Internal Medicine 06/11/22
--- OUTSIDE RECORDS SUMMARY | 2025-10-25 11:07 | XMS_ITS | Encounter Summary ---
Author Organization [facility] Address [address] [place] [address] Care Team Providers Care Tank Pumper Name Role Phone Jah Batista MD Primary Care Provider Unavail Regine Sauceda MD Primary Care Provider Robyn Jonny Cook PA-C Primary Care Provider Unavail able Brandon Anguiano MD Unavailable Chely Acuña MD Primary Care Provider [phone] Ben Aguilar MD Primary Care Provider + Reason for Visit * Reason Onset Date Comments [facility] Call 10/04/2017 BLOOD PRESSURE E LEVATED Encounter Details Date Type Department Care Team Description 10/04/2017 Telephone Adult Medicine [address] [address] Jah Batista MD [facility] Call (BLOOD PRESSURE ELEVATED) Social History Tobacco Use Types Packs/Day Years [...] encounter Miscellaneous Notes * Telephone Encounter - Marissa Rubio R.N. - 10/04/2017 5:01 PM EST FYI [phone] (home) Spoke with pt she states she feels fine, no headache, no dizziness or lightheadedness, no visual changes, no weakness. Pt is a recent a hip replacement and she has had some discomfort, she is taking pain medication for it. Pt states he feels nothing different, she feels fine. Pt ate hot dogs recently. Advised avoid to salt. Pt has minimal swelling of ankles she is keeping them elevated, and doing her exercises as instructed. NO SOB. Advised Obdulia MORGAN is available on the weekend if she feels she needs to be seen. Pt is seeing surgeon on , advised pt to call for a f/u appt with PCP * Telephone Encounter - Darrian Henry MD - 10/04/2017 4:43 PM EST pls inquire if pt sympomatic- if so ER * Telephone Encounter - Marissa Rubio R.N. - 10/04/2017 4:32 PM EST Attempted to contact caller, call went to [employer], (message states she only works Sat -) message not left. Will forward to covering provider, see below. * Telephone Encounter - Shabnam Sykes - 10/04/2017 4:27 PM EST [facility] CALL Which [facility] office is calling? [place] Full name of caller: Tami The caller is A Physical Therapist Is the caller at the patients home?: NO Reason for call: Patient had elevated blood pressure at 162/100 at noon today. FYI only. Does caller need an urgent call back? NO Was CONTACT Telephone # obtained above?: YES Fax #: x documented in this encounter Plan of Treatment Not on file documented as of this encounter Visit Diagnoses Not on filedocumented in this encounter Care Teams Tank Pumper Relationship Specialty Start Date End Date Jah Batista MD PCP - General Internal Medicine 07/18/16 10/07/17 Regine Serrano MD PCP - General Internal Medicine 10/08/17 06/25/21 Jonny Giron PA-C PCP - General Med/Peds 06/26/21 02/01/22 Chely Acuña MD [address] [place] [address] [phone] PCP - General Internal Medicine 02/02/22 06/10/22 Ben Aguilar MD [address] [place] [address] [phone] PCP - General Internal Medicine 06/11/22 Brandon Anguiano MD Specialist Cardiovascular Disease 07/17/21 documented as of this encounter
--- OUTSIDE RECORDS SUMMARY | 2025-10-25 11:07 | XMS_ITS | Encounter Summary ---
Author Organization [facility] Address [address] [place] [address] Care Team Providers Care Dosier Operator Name Role Phone Jah Batista MD [...] Details Date Type Department Care Team Description 04/06/2009 [facility] Medical Records [address] [place] [id number] Cheikh Blank MD Social History Tobacco Use [...] on filedocumented in this encounter Care Teams Dosier Operator Relationship Specialty Start Date End Date Jah Batista MD PCP - General 11/13/04 06/14/16 Mik Macias MD PCP - General Family Practice 06/15/16 07/17/16 Jah Batista MD PCP - General Internal Medicine 07/18/16 10/07/17 Regine Serrano MD PCP - General Internal Medicine 10/08/17 06/25/21 Jonny Giron PA-C PCP - General Med/Peds 06/26/21 02/01/22 Chely Acuña MD [address] [place] [address] [phone] PCP - General Internal Medicine 02/02/22 06/10/22 Ben Aguilar MD [address] [place] [address] PCP - General Internal Medicine 06/11/22 Brandon Anguiano MD Specialist Cardiovascular Disease 07/17/21 documented as of this encounter
--- OUTSIDE RECORDS SUMMARY | 2025-10-25 11:07 | XMS_ITS | Encounter Summary ---
Author Organization [facility] Address [address] [place] [address] Care Team Providers Care Clinical Informatics Specialist Name Role Phone Brandon Anguiano MD Unavailable Ben Aguilar MD Primary Care Provider + Encounter Details Date Type Department Care Team Description 04/08/2023 Township Clerk Report Medical Records [address] [place] [phone] Antonino Linn MD Social History Tobacco Use [...] on filedocumented in this encounter Care Teams Clinical Informatics Specialist Relationship Specialty Start Date End Date Ben Aguilar MD [address] [place] [phone] PCP - General Internal Medicine 06/11/22 Brandon Anguiano MD Specialist Cardiovascular Disease 07/17/21 documented as of this encounter
--- OUTSIDE RECORDS SUMMARY | 2025-10-25 11:07 | XMS_ITS | Encounter Summary ---
Author Organization [facility] Address [address] [place] [address] Care Team Providers Care Planer Chain Offbearer Name Role Phone Brandon Anguiano MD Unavailable Ben Aguilar MD Primary Care Provider + Encounter Details Date Type Department Care Team Description 10/14/2023 Boatbuilder Supervisor Report Medical Records [address] [place] [address] Antonino Linn MD Social History Tobacco Use [...] on filedocumented in this encounter Care Teams Planer Chain Offbearer Relationship Specialty Start Date End Date Ben Aguilar MD [address] [place] [address] PCP - General Internal Medicine 06/11/22 Brandon Anguiano MD Specialist Cardiovascular Disease 07/17/21 documented as of this encounter
--- OUTSIDE RECORDS SUMMARY | 2025-10-25 11:07 | XMS_ITS | Encounter Summary ---
Author Organization [facility] Address [address] [place] [address] Care Team Providers Care Network Operations Center Technician Name Role Phone Jah Batista MD Primary Care Provider Unavail able Regine Serrano MD Primary Care Provider Jonny Mayfield PA-C Primary Care Provider Unavail able Brandon Anguiano MD Unavailable Chely Acuña MD Primary Care Provider [phone] Ben Aguilar MD Primary Care Provider + Encounter Details Date Type Department Care Team Description 07/15/2017 De Icer Installer Report Medical Records [address] [place] [address] Allan Anand MD Social History Tobacco Use [...] on filedocumented in this encounter Care Teams Network Operations Center Technician Relationship Specialty Start Date End Date Jah Batista MD PCP - General Internal Medicine 07/18/16 10/07/17 Regine Serrano MD PCP - General Internal Medicine 10/08/17 06/25/21 Jonny Giron PA-C PCP - General Med/Peds 06/26/21 02/01/22 Chely Acuña MD [address] [place] [address] [phone] PCP - General Internal Medicine 02/02/22 06/10/22 Ben Aguilar MD [address] [place] [id number] PCP - General Internal Medicine 06/11/22 Brandon Anguiano MD Specialist Cardiovascular Disease 07/17/21 documented as of this encounter
--- OUTSIDE RECORDS SUMMARY | 2025-10-25 11:07 | XMS_ITS | Encounter Summary ---
Author Organization [facility] Address [address] [place] [address] Care Team Providers Care Photolettering Machine Operator Name Role Phone Regine Serrano MD Primary Care Provider Robyn Jonny Cook PA-C Primary Care Provider Unavail able Brandon Anguiano MD Unavailable Chely Acuña MD Primary Care Provider [phone] Ben Aguilar MD Primary Care Provider + Encounter Details Date Type Department Care Team Description 08/28/2019 Manufacturing Worker Report Medical Records [address] [place] [address] Allan Anand MD Social History Tobacco Use [...] on filedocumented in this encounter Care Teams Photolettering Machine Operator Relationship Specialty Start Date End Date Regine Serrano MD PCP - General Internal Medicine 10/08/17 06/25/21 Jonny Giron PA-C PCP - General Med/Peds 06/26/21 02/01/22 Chely Acuña MD [address] [place] [address] [phone] PCP - General Internal Medicine 02/02/22 06/10/22 Ben Aguilar MD [address] [place] [id number] PCP - General Internal Medicine 06/11/22 Brandon Anguiano MD Specialist Cardiovascular Disease 07/17/21 documented as of this encounter
--- OUTSIDE RECORDS SUMMARY | 2025-10-25 11:07 | XMS_ITS | Encounter Summary ---
Author Organization [facility] Address [address] [place] [address] Care Team Providers Care Network Project Manager Name Role Phone Regine Serrano MD Primary Care Provider Robyn Jonny Cook PA-C Primary Care Provider Unavail able Brandon Anguiano MD Unavailable Chely Acuña MD Primary Care Provider [phone] Ben Aguilar MD Primary Care Provider + Encounter Details Date Type Department Care Team Description 07/04/2020 Gasoline Catalyst Operator Report Medical Records [address] [place] [phone] Allan Anadn MD Social History Tobacco Use Types Packs/Day [...] filedocumented in this encounter Care Teams Network Project Manager Relationship Specialty Start Date End Date Regine Serrano MD PCP - General Internal Medicine 10/08/17 06/25/21 Jonny Giron PA-C PCP - General Med/Peds 06/26/21 02/01/22 Chely Acuña MD [address] [place] [address] [phone] PCP - General Internal Medicine 02/02/22 06/10/22 Ben Aguilar MD [address] [place] [phone] PCP - General Internal Medicine 06/11/22 Brandon Anguiano MD Specialist Cardiovascular Disease 07/17/21 documented as of this encounter
--- OUTSIDE RECORDS SUMMARY | 2025-10-25 11:08 | XMS_ITS | Encounter Summary ---
Author Organization [facility] Address [address] [place] [address] Care Team Providers Care Outreach Clinician Name Role Phone Brandon Anguiano MD Unavailable Ben Aguilar MD Primary Care Provider + Reason for Visit * Reason Comments E-prescribe Rx Request Encounter Details Date Type Department Care Team Description 06/29/2022 Refill Adult Medicine [facility] [address] [place] [address] [phone] Chely Acuña MD [address] [place] [address] E-prescribe Rx Request Social History Tobacco Use [...] Payor: [employer] / Plan: POS $10 [facility]O [id number] / Product Type: POS [id number] documented in this encounter Plan of Treatment Not on file documented as of this encounter Visit Diagnoses Not on filedocumented in this encounter Care Teams Outreach Clinician Relationship Specialty Start Date End Date Ben Aguilar MD [address] [place] [phone] PCP - General Internal Medicine 06/11/22 Brandon Anguiano MD Specialist Cardiovascular Disease 07/17/21 documented as of this encounter
--- OUTSIDE RECORDS SUMMARY | 2025-10-25 11:08 | XMS_ITS | Encounter Summary ---
Author Organization [facility] Address [address] [place] [address] Care Team Providers Care Front Office Medical Assistant Name Role Phone Brandon Anguiano MD Unavailable Ben Aguilar MD Primary Care Provider + Encounter Details Date Type Department Care Team Description 08/13/2022 Orders Only Adult Medicine [address] [phone] Ben Aguilar MD [address] [place] [address] [phone] Cervical radiculopathy at C6 (Primary Dx) Social History Tobacco Use Types Packs/Day Years [...] as of this encounter Visit Diagnoses Diagnosis Cervical radiculopathy at C6- Primary Brachial neuritis or radiculitis nos documented in this encounter Care Teams Front Office Medical Assistant Relationship Specialty Start Date End Date Ben Aguilar MD [address] [place] [address] [phone] PCP - General Internal Medicine 06/11/22 Brandon Anguiano MD Specialist Cardiovascular Disease 07/17/21 documented as of this encounter
--- OUTSIDE RECORDS SUMMARY | 2025-10-25 11:08 | XMS_ITS | Encounter Summary ---
Author Organization [facility] Address [address] [place] [address] Care Team Providers Care Photoengraving Helper Name Role Phone Regine Serrano MD Primary Care Provider Robyn Jonny Cook PA-C Primary Care Provider Unavail able Brandon Anguiano MD Unavailable Chely Acuña MD Primary Care Provider [phone] Ben Aguilar MD Primary Care Provider + Encounter Details Date Type Department Care Team Description 01/21/2019 Pt. Non Urgent Medic al Question Physiatry - [address] [address] Kartik Cunningham PA-C Social History Tobacco Use Types Packs/Day [...] on filedocumented in this encounter Care Teams Photoengraving Helper Relationship Specialty Start Date End Date Regine Serrano MD PCP - General Internal Medicine 10/08/17 06/25/21 Jonny Giron PA-C PCP - General Med/Peds 06/26/21 02/01/22 Cehly Acuña MD [address] [place] [id number] PCP - General Internal Medicine 02/02/22 06/10/22 Ben Aguilar MD [address] [place] [id number] PCP - General Internal Medicine 06/11/22 Brandon Anguiano MD Specialist Cardiovascular Disease 07/17/21 documented as of this encounter
--- OUTSIDE RECORDS SUMMARY | 2025-10-25 11:08 | XMS_ITS | Encounter Summary ---
Author Organization [facility] Address [address] [place] [address] Care Team Providers Care Animal Tech Name Role Phone Regine Serrano MD Primary Care Provider Robyn Jonny Cook PA-C Primary Care Provider Unavail able Brandon Anguiano MD Unavailable Chely Acuña MD Primary Care Provider [phone] Ben Aguilar MD Primary Care Provider + Encounter Details Date Type Department Care Team Description 08/20/2018 Retail Leader Report Medical Records [address] [place] [address] Herman Morrison PA-C [address] [place] [address] [id number] Social History Tobacco Use Types Packs/Day Years [...] on filedocumented in this encounter Care Teams Animal Tech Relationship Specialty Start Date End Date Regine Serrano MD PCP - General Internal Medicine 10/08/17 06/25/21 Jonny Giron PA-C PCP - General Med/Peds 06/26/21 02/01/22 Chely Acuña MD [address] [place] [id number] PCP - General Internal Medicine 02/02/22 06/10/22 Ben Aguilar MD [address] [place] [id number] PCP - General Internal Medicine 06/11/22 Brandon Anguiano MD Specialist Cardiovascular Disease 07/17/21 documented as of this encounter
--- OUTSIDE RECORDS SUMMARY | 2025-10-25 11:08 | XMS_ITS | Encounter Summary ---
Author Organization [facility] Address [address] [place] [address] Care Team Providers Care Electronic Science Teacher Name Role Phone Regine Serrano MD Primary Care Provider Robyn Jonny Cook PA-C Primary Care Provider Unavail able Brandon Anguiano MD Unavailable Chely Acuña MD Primary Care Provider [phone] Ben Aguilar MD Primary Care Provider + Encounter Details Date Type Department Care Team Description 11/17/2018 Play Therapist Report Medical Records [address] [place] [phone] Allan Anand MD Social History Tobacco Use [...] on filedocumented in this encounter Care Teams Electronic Science Teacher Relationship Specialty Start Date End Date Regine Serrano MD PCP - General Internal Medicine 10/08/17 06/25/21 Jonny Giron PA-C PCP - General Med/Peds 06/26/21 02/01/22 Chely Acuña MD [address] [place] [address] [id number] PCP - General Internal Medicine 02/02/22 06/10/22 Ben Aguilar MD [address] [place] [id number] PCP - General Internal Medicine 06/11/22 Brandon Anguiano MD Specialist Cardiovascular Disease 07/17/21 documented as of this encounter
--- OUTSIDE RECORDS SUMMARY | 2025-10-25 11:08 | XMS_ITS | Encounter Summary ---
Author Organization [facility] Address [address] [place] [address] Care Team Providers Care Server Support Technician Name Role Phone Jah Batista MD Primary Care Provider Unavail able Regine Serrano MD Primary Care Provider Robyn Jonny Cook PA-C Primary Care Provider Unavail able Brandon Anguiano MD Unavailable Chely Acuña MD Primary Care Provider [phone] Ben Aguilar MD Primary Care Provider + Encounter Details Date Type Department Care Team Description 10/03/2016 [facility] Medical Records [address] [place] [id number] Kimberly Thomas Social History Tobacco Use Types Packs/Day Years [...] on filedocumented in this encounter Care Teams Server Support Technician Relationship Specialty Start Date End Date Jah Batista MD PCP - General Internal Medicine 07/18/16 10/07/17 Regine Serrano MD PCP - General Internal Medicine 10/08/17 06/25/21 Jonny Giron PA-C PCP - General Med/Peds 06/26/21 02/01/22 Chely Acuña MD [address] [place] [id number] PCP - General Internal Medicine 02/02/22 06/10/22 Ben Aguilar MD [address] [place] [phone] PCP - General Internal Medicine 06/11/22 Brandon Anguiano MD Specialist Cardiovascular Disease 07/17/21 documented as of this encounter
--- OUTSIDE RECORDS SUMMARY | 2025-10-25 11:08 | XMS_ITS | Encounter Summary ---
Author Organization [facility] Address [address] [place] [address] Care Team Providers Care Resource Recovery Specialist Name Role Phone Jah Batista MD Primary Care Provider Unavail able Regine Serrano MD Primary Care Provider Jonny Mayfield PA-C Primary Care Provider Unavail able Brandon Anguiano MD Unavailable Chely Acuña MD Primary Care Provider [phone] Ben Aguilar MD Primary Care Provider + Encounter Details Date Type Department Care Team Description 09/12/2016 [facility] Medical Records [address] [place] [phone] Abstract, Provider Social History Tobacco Use Types [...] on filedocumented in this encounter Care Teams Resource Recovery Specialist Relationship Specialty Start Date End Date Jah Batista MD PCP - General Internal Medicine 07/18/16 10/07/17 Regine Serrano MD PCP - General Internal Medicine 10/08/17 06/25/21 Jonny Giron PA-C PCP - General Med/Peds 06/26/21 02/01/22 Chely Acuña MD [address] [place] [address] [id number] PCP - General Internal Medicine 02/02/22 06/10/22 Ben Aguilar MD [address] [place] [id number] PCP - General Internal Medicine 06/11/22 Brandon Anguiano MD Specialist Cardiovascular Disease 07/17/21 documented as of this encounter
[2025-10-25 13:19] LABS: MANUAL DIFF FLAG NO
[2025-10-25 13:46] LABS: Hematocrit 44.1 % (37.0-47.0); Hemoglobin 14.3 g/dl (12.0-16.0); Imm Gran Abs Auto 0.04 X10*3/uL (0.00-0.03); Imm Gran Pct Auto 0.8 % (0.0-0.4); Lymphocytes Absolute Auto 1.5 X10*3/uL (1.2-4.9); Mean Corpuscular HGB Conc 32.4 g/dl (31.0-35.0); Mean Corpuscular Hemoglobin 28.3 pg (27.0-33.0); Mean Corpuscular Volume 87.2 fL (80.0-98.0); NRBC Abs Auto 0.000 X10*3/uL (0.0-0.012); NRBC Pct Auto 0.0 /100WBC (0.0-0.2); Platelet Count 265 X10*3/uL (160-400); Red Blood Count 5.06 X10*6/uL (4.20-5.50); White Blood Count 5.1 X10*3/uL (4.8-10.8)
[2025-10-25 14:03] LABS: Alanine Aminotransferase 24 U/L (0-31); Aspartate Amino Transferase 29 U/L (5-31); Estimated Glomerular Filt Rate > 60
== END 2025-10-25 09:25 | disposition home or self-care (01) ==
LOC: HO.HKASLDS 09:24
PROVIDERS: PCP Family Medicine; Visit Provider Internal Medicine Rheumatology
DX: Z79.899 Other long term (current) drug therapy (principal)
CPT/HCPCS: 36415; 82565; 84450; 84460; 85025; 85652; 86140

== ENCOUNTER 2025-10-26 10:26 | Outpatient (AMB) | payer MEDICARE, SELFPAY ==
[2025-10-26 10:28] VITALS: BP 150/90; PULSE 100; O2SAT 97; BMI 33.9
--- NOTE | 2025-10-26 10:28 | A.OFFVIS_ITS ---
Vital Signs 10/26/25 10:28 Height 5 ft 2 in Weight 185 lb 10.067 oz BMI 33.9 BP 150/90 H Blood Pressure Location Rt brachial Position Sitting Pulse 100 Pulse Source Pulse Oximeter Pulse Oximetry (%) 97 Oxygen Delivery Method Room Air Intake Visit Reasons: 3months Intake Note: Patient presents for follow up on labs. Accompanied by: Self / Same As Patient Allergies No Known Allergies (No Known Allergies*) Allergy (Verified 10/26/25 10:34) HPI HPI 3months: Details: She had left foot surgery 6-8 weeks ago. Since having surgery she is experiencing increased right knee swelling and pain. Right knee is giving out on her. She is wearing a knee brace. [facility] Medical History History of reverse total replacement of both shoulders Surgical History S/P foot surgery, left H/O bilateral hip replacements History of knee replacement procedure of left knee Bariatric surgery status History of spinal fusion Carpal tunnel syndrome of right wrist Carpal tunnel syndrome of left wrist History of arthroscopy of left knee Social History Alcohol intake: current Alcohol intake frequency: a few times a week Alcohol type: hard liquor Patient Tobacco Use Status: Never used Tobacco Current occupational status: disabled Physical Exam Vital Signs: Last Vital Signs Pulse 100 10/26/25 10:28 BP 150/90 H 10/26/25 10:28 Pulse Ox 97 10/26/25 10:28 Oxygen Delivery Method Room Air 10/26/25 10:28 BMI result Body Mass Index 33.9 Const Other: General: Comfortable CVS: RRR Respiratory: clear to auscultation bilaterally. Good respiratory effort Skin: No lesions seen MSK: No synovitis in hands. No tender joints in hands. Shoulder abduction 160 degrees bilateral. Good internal external rotation of bilateral shoulders. Mild to moderate right knee effusion with warmth. Normal range of motion of elbows. Normal range of motion of lower extremities. Soft tissue swelling left foot. Wound is healing well from surgical site of left dorsal foot. Assessment & Plan Assessment & Plan (1) Rheumatoid arthritis: Comment: Controlled on triple therapy. Rheumatology history: Seropositive (RF 19). MTX 09/2022-. She has been on HCQ. Methotrexate is contributing to loose stools but tolerable. On triple therapy with hydroxychloroquine, leflunomide and methotrexate. Code(s): M06.9 - Rheumatoid arthritis, unspecified Category: Medical Qualifiers: Rheumatoid arthritis location: multiple sites Rheumatoid factor presence: with rheumatoid factor Qualified Code(s): M05.79 - Rheumatoid arthritis with rheumatoid factor of multiple sites without organ or systems involvement Plan: Continue hydroxychloroquine 400 mg daily. OCT and visual field eye exam 10/14/2025 up-to-date Continue leflunomide 20 mg daily Continue methotrexate 20 mg once weekly Continue folic acid 1 mg daily Changing NSAID to nabumetone to better manage right knee osteoarthritis pain and swelling. Labs for drug monitoring on high-risk medication up-to-date 10/25/2025 Return to clinic in 3 months (2) Other terminal worker (current) drug therapy: Code(s): Z79.899 - Other terminal worker (current) drug therapy Category: Medical Plan: See above (3) Osteoarthritis of right knee: Comment: Recurrent flare. Previously managed by orthopedic surgery. Patient received cortisone injection 07/22/2025. Too soon for another cortisone injection. Code(s): M17.11 - Unilateral primary osteoarthritis, right knee Category: Medical Plan: Change NSAID Celebrex to nabumetone 500 mg twice a day. If she does not find any benefit in 1-2 weeks, she will call office. I will then increase dose t of nabumetone to 750 mg twice a day She will call orthopedic surgery for follow up appointment Continue bracing Return to clinic in 3 months Medications: New nabumetone 500 mg PO BID 180 tabs 1RF 90 days Refilled leflunomide 20 mg PO DAILY 90 tabs 0RF 90 days Discontinued celecoxib Discontinued Reason: Doctor's Order 200 mg PO BID 60 caps 0RF Coding Level of Care Code Est Pt Level 4 (52440) Complex visit Add On G2211 Diagnoses Rheumatoid arthritis involving multiple sites with positive rheumatoid factor M05.79 Rheumatoid arthritis location: multiple sites Rheumatoid factor presence: with rheumatoid factor Other terminal worker (current) drug therapy Z79.899 Osteoarthritis of right knee M17.11
--- OUTSIDE RECORDS SUMMARY | 2025-10-26 11:58 | XMS_ITS | Clinical Summary ---
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 Mesa 12/2019; completed 02/15/20 Assessment & Plan (04/30/2025 1:11 PM EDT): Continue gabapentin 600 mg 3 times daily Assessment & Plan (10/12/2024 1:38 PM EST): Orders: gabapentin (NEURONTIN) 600 mg tablet; Take 1 tablet (600 mg total) by mouth 3 (three) times a day. Shoulder pain, bilateral 05/13/2018 Overview (09/01/2024): Ortho, Dr. Anand [facility] Avascular necrosis of bones of both hips ([facility] V24, [facility] V28) 02/13/2018 Overview (09/01/2024): THR L in [...] Planninf for R release with Dr. Anand, [facility] 08/2018 Depression 12/08/2010 Nephrolithiasis 10/05/2010 Overview (09/01/2024): Amber; ESWL, Left Perinephric fluid 09/03 [facility], Dr. Pedro Pablo Benjamin ED [...] TUMMY TUCK OTHER SURGICAL HISTORY 08/31 PROCEDURE: [place] HYSTEROSCOPY ENDOMETRIAL ABLATION; COMMENT: TUBAL LIGATION PROCEDURE: HISTORICAL TUBAL LIGATION HYSTERECTOMY 2008 PROCEDURE: HISTORICAL HYSTERECTOMY; COMMENT: BREAST BIOPSY PROCEDURE: BX BREAST; PERC NEEDLE CORE W/IMAG GUID; COMMENT: Left BARIATRIC SURGERY 09/24/14 PROCEDURE: [place] LAPS GSTRC RSTRICTIV PX LONGITUDINAL GASTRECTOMY; COMMENT: Fialo; sleeve HIP ARTHROPLASTY 04/12/2015 Left PROCEDURE: HISTORICAL HIP REPLACEMENT HIP ARTHROPLASTY 09/24/2017 Right PROCEDURE: HISTORICAL HIP REPLACEMENT BREAST SURGERY PROCEDURE: [place] UNLISTED PROCEDURE BREAST; COMMENT: BREAST LIFT BREAST SURGERY PROCEDURE: [place] UNLISTED PROCEDURE BREAST; COMMENT: implants TOTAL KNEE ARTHROPLASTY 01/07/2018 Left PROCEDURE: HISTORICAL TOTAL KNEE REPLACE; COMMENT: [facility] CARPAL TUNNEL RELEASE 2017 Bilateral PROCEDURE: HISTORICAL CARPAL TUNNEL REL; COMMENT: Right 10/01/18, left 10/2018; [facility] NECK SURGERY 02/15/2020 PROCEDURE: HISTORICAL NECK SURGERY; COMMENT: Anterior cervical discectomy C6-C7, interbody device, fusion, plate; Dr. Mesa, [facility] SHOULDER SURGERY 11/03/2020 Left PROCEDURE: HISTORICAL [...] 9:00 AM EST Office Visit Adult Medicine [address] [phone] Kateryna Allen PA [address] [place] [address] Health Maintenance Due Date Last Done Comments [...] mg/dL LAB CHEMISTRY METHOD 05/03/2025 11:41 AM [facility] Triglycerides 89 0 - 150 mg/dL LAB CHEMISTRY METHOD 05/03/2025 11:41 AM [facility] HDL 64 >=40 mg/dL LAB CHEMISTRY METHOD 05/03/2025 11:41 AM [facility] LDL Calculated 166(H) 0 - 100 mg/dL LAB CHEMISTRY METHOD 05/03/2025 11:41 AM [facility] VLDL Cholesterol Isaias 17.8 mg/dL LAB CHEMISTRY METHOD 05/03/2025 11:41 AM [facility] Non HDL Chol. (LDL+VLDL) 184(H) <145 mg/dL LAB CHEMISTRY METHOD 05/03/2025 11:41 AM [facility] Chol/HDL Ratio 3.9 0.0 - 4.4 LAB CHEMISTRY METHOD 05/03/2025 11:41 AM [facility] Blood Venous blood specimen / Unknown Venipuncture / Unknown 05/03/2025 7:55 AM EDT 05/03/2025 7:55 AM EDT Ben Aguilar MD LAB BLOOD ORDERA BLES Final Result [facility] [address] [place] [address], * Comprehensive metabolic panel (05/03/2025 7:55 AM EDT) Sodium 142 133 - 145 mmol/L LAB CHEMISTRY METHOD 05/03/2025 11:41 AM [facility] Potassium 3.8 3.5 - 5.5 mmol/L LAB CHEMISTRY METHOD 05/03/2025 11:41 AM [facility] Chloride 106 96 - 110 mmol/L LAB CHEMISTRY METHOD 05/03/2025 11:41 AM [facility] CO2 28 21 - 32 mmol/L LAB CHEMISTRY METHOD 05/03/2025 11:41 AM [facility] Anion Gap 8 3 - 11 LAB CHEMISTRY METHOD 05/03/2025 11:41 AM [facility] Glucose 86 70 - 100 mg/dL LAB CHEMISTRY METHOD 05/03/2025 11:41 AM [facility] BUN 15 5 - 25 mg/dL LAB CHEMISTRY METHOD 05/03/2025 11:41 AM [facility] Creatinine 0.60 0.50 - 1.10 mg/dL LAB CHEMISTRY METHOD 05/03/2025 11:41 AM [facility] eGFR 103 >=60 mL/min/1. 73m2 LAB CHEMISTRY METHOD 05/03/2025 11:41 AM [facility] Comment:Calculation based on the Chronic Kidney Disease Epidemiology Collaboration (CKD-EPI) equation refit without adjustment for race. BUN/Creatinine Ratio 25.0 LAB CHEMISTRY METHOD 05/03/2025 11:41 AM EDT [facility] Calcium 9.4 8.5 - 10.5 mg/dL LAB CHEMISTRY METHOD 05/03/2025 11:41 AM [facility] AST (SGOT) 24 10 - 42 unit/L LAB CHEMISTRY METHOD 05/03/2025 11:41 AM [facility] ALT (SGPT) 31 10 - 60 unit/L LAB CHEMISTRY METHOD 05/03/2025 11:41 AM [facility] Alkaline Phosphatase 72 42 - 121 unit/L LAB CHEMISTRY METHOD 05/03/2025 11:41 AM [facility] Total Protein 6.8 6.0 - 8.0 g/dL LAB CHEMISTRY METHOD 05/03/2025 11:41 AM [facility] Albumin 3.8 3.2 - 5.0 g/dL LAB CHEMISTRY METHOD 05/03/2025 11:41 AM [facility] Total Bilirubin 0.6 0.0 - 1.4 mg/dL LAB CHEMISTRY METHOD 05/03/2025 11:41 AM [facility] Blood Venous blood specimen / Unknown Venipuncture / Unknown 05/03/2025 7:55 AM EDT 05/03/2025 7:55 AM EDT Ben Aguilar MD LAB BLOOD ORDERA BLES Final Result [facility] [address] [place] [address], [place] [phone] * MG Mammo Digital Screening w Trent bilat (03/29/2025 9:31 AM EDT) Anatomical Region Laterality Modality Breast Bilateral Mammography 03/29/2025 3:38 PM EDT Impressions 03/29/2025 3:44 PM EDT No mammographic evidence for malignancy. BI-RADS CATEGORY: 1 - NEGATIVE RECOMMENDATION: Screening bilateral mammogram is recommended in 1 year. Mammo Location: [facility], [address] [place] [address], [phone], . -------- FINAL REPORT -------- Dictated By: Yecenia Lepe Dictated Date: 03/29/2025 15:38 ET Assigned Physician: Yecenia Lepe Reviewed and Electronically Signed By: Yecenia Lepe Signed Date: 03/29/2025 15:44 ET Workstation ID: [id number] Transcribed By: Self Edit Transcribed Date: 03/29/2025 [...] is recommended in 1 year. Mammo Location: [facility], [address] [place] [address], [phone], . -------- FINAL REPORT -------- Dictated By: Yecenia Lepe Dictated Date: 03/29/2025 15:38 ET Assigned Physician: Yecenia Lepe Reviewed and Electronically Signed By: Yecenia Lepe Signed Date: 03/29/2025 15:44 ET Workstation ID: [id number] Transcribed By: Self Edit Transcribed Date: 03/29/2025 15:38 ET Ben Aguilar MD IMG BI PROCEDURE S Final Result * Depression Screening (11/01/2023) Depression Screening abstracted Historical Provider HEALTH MAINTENANCE Final Result * Hepatitis C Screening (10/09/2019) Hepatitis C Screening abstracted Historical Provider HEALTH MAINTENANCE Final Result * Colonoscopy (06/18/2017) Pathologist [facility] Colonoscopy no interpretation abstracted Anatomical Region Laterality Modality Other Historical Provider HEALTH MAINTENANCE Final Result * Pap Smear (03/25/2009) Pap smear no interpretation abstracted Historical Provider HEALTH MAINTENANCE Final Result from Last 3 Months or Most Recently Relevant to Health Maintenance Insurance MEDICARE 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
--- OUTSIDE RECORDS SUMMARY | 2025-10-26 11:58 | XMS_ITS | Data Portability ---
Author Organization [facility], [facility] Address [address] [place] [address] Care Team Providers Care Hospitality Coordinator Name Role Phone NENA RODRIGUEZ Primary Care Provider Assessment Encounter Date Assessment Date Assessment LastModified by Organization Details LastModified Time 06/08/2025 06/08/2025 ICD-10: Left fir st and second TMT nonunions, retained hardware CHIEF COMPLAINT: Left foot pain and swelling HISTORY OF PRESENT ILLNESS: Delia is a very pleasant 59-year-old woman with RA who is 7.5 months status post left first and second TMT realignment arthrodeses and calcaneal bone graft augmentation for treatment of midfoot arthritis, cavus foot deformity and metatarsus adductus. She unfortunately has developed painful nonunions of her left first and second TMT joints with broken hardware. She has had x-rays and a CT scan in April. He is taking vitamin D and calcium and lab work including vitamin D, calcium and albumin were normal. She takes leflunomide, methotrexate and hydroxychloroquine for RA. Her pain level is 8/10. We have recommended a bone growth stimulator, which has not yet been approved by her insurance company. She is happy with her foot alignment. Past family, medical, social history and review of systems has been reviewed and is located in the patient s chart. No interval change. PHYSICAL EXAM: General: healthy appearing, in no acute distress Psych: alert and oriented x3, normal mood Skin: intact without ulceration or lesion, normal turgor Lungs: respirations unlabored Cardiac: heart rate regular, normal peripheral pulses Musculoskeletal: With post-op shoe removed, her incisions are well-healed. There is mild midfoot swelling. There is no infectious change. She is tender about the first and second TMT joints over the joints themselves and retained hardware. There is pain with first and second TMT piano blue testing. She is distally neurovascularly intact. X-RAYS/CT: Recent x-rays and CT scan images were independently reviewed, demonstrating first and second TMT nonunions with broken hardware. IMPRESSION: 7.5 months postop, TMT nonunions PLAN: I discussed these findings with the patient. She has unfortunately developed nonunions. I believe her rheumatoid arthritis and medications may be contributing to this. I have recommended she obtain a bone growth stimulator in June as it will be approved by her insurance company when she is 9 months postop and then be used as an adjunct to increase the chance of success with revision surgery. We will plan to proceed with surgery in July consisting of removal of hardware and revision first and second TMT arthrodesis with plate-screw constructs and allograft. She will be nonweightbearing for at least 6 weeks following surgery. We will hold her rheumatoid medications for 2 weeks preoperatively and 2 weeks postoperatively. All questions were answered. She understands and agrees with this plan. Risks include, but are not limited to, wound healing problems, deep infection, nerve/vessel injury, nonunion, malunion, symptomatic hardware, persistent pain, need for further surgery. The expected postoperative course was outlined in detail. The patient understands the nature and magnitude of this surgery and wishes to proceed. All questions were answered. The patient is ambulatory, but has weakness [...] condition, to please contact our office immediately. ADDENDUM: I spoke to her ship cleaner Dr. Linn on 07/27/25. The plan will be for her to continue her hydroxychloroquin and methotrexate and hold her leflunomide until she is 2 weeks post-op. Not available 07/27/2025 11:38:24 09/09/2025 09/09/2025 CHIEF COMPLAINT: Postop left foot HISTORY OF PRESENT ILLNESS: Delia is a very pleasant 60-year-old woman with RA who is 6 weeks status post left first and second TMT revision fusions and hardware removal. She is doing well. She reports some twinges of pain over the first TMT joint. She is feeling better than she did prior to revision surgery. She describes the foot as feeling stable. She has been nonweightbearing in a short leg clamshell cast and she has been applying daily collagen dressings. She has been using her bone stimulator. She is in good spirits today. She denies any pain today at rest. Past family, medical, social history and review of systems has been reviewed and is located in the patient s chart. PHYSICAL EXAM: Musculoskeletal: With cast removed, her incisions are well-healed. There is mild swelling about the midfoot without infectious change. Hardware is not prominent or tender. There is no gross motion about her first or second TMT joints. She is distally neurovascularly intact. There is appropriate incisional sensitivity. X-RAYS: Three standing views of the left foot were ordered, obtained and reviewed by me today at [facility], demonstrating interval healing of her first and second TMT joints with intact hardware and well understood. She has some stable residual metatarsus adductus and cavus. IMPRESSION: 6 weeks postop, doing well PLAN: She is doing well at this time. She may begin to partial weight-bear in her CAM boot with either a walker or cane for the first 2 weeks. She may then begin to fully weight-bear in the boot in 2 weeks. I would like to remain in the boot when walking until she follows up with us in 7-8 weeks. She will continue using her bone stimulator. She will need repeat x-rays on arrival. All questions were answered. Not available 09/09/2025 10:51:20 Plan of Treatment Reminders Order Date Submit Date Provider Last Modified By Organization Details Last Modified Time Details Appointments RECHECK 15 2024 10:30A M Regine Bernal PA-C Not available Not available Not available Lab albumin, serum or plasma 2024 025 [email or web address] [facility] (Centralized Electronic Ordering - All Locations), Patient Can Go To The Location Of Their Choice, [address] 05/24/2025 07:46:58 unlisted lab - ALP+Ca+T SH+PTH intact 2024 025 LAZARUS [facility] (Centralized Electronic Ordering - All Locations), Patient Can Go To The Location Of Their Choice, 05/24/2025 18:17:47 vitamin D, 25-hydro xy, total, serum 2024 025 [email or web address] [facility] (Centralized Electronic Ordering - All Locations), Patient Can Go To The Location Of Their Choice, 05/24/2025 07:47:06 phosphor us, serum or plasma 2024 025 [email or web address] [facility] (Centralized Electronic Ordering - All Locations), Patient Can Go To The Location Of Their Choice, 05/24/2025 07:47:13 co2, (carbon dioxide) , total, serum or plasma 2024 025 [email or web address] [facility] (Centralized Electronic Ordering - All Locations), Patient Can Go To The Location Of Their Choice, 05/24/2025 07:47:18 Referral None recorded . Procedures None recorded . Surgeries orthopae dic surgery (SURG) 2024 025 [email or web address] [facility], [address], [place], [address], 07/29/2025 08:54:08 Imaging XR, foot, 3 or more view - RM 108--pos t op 3V FOOT WB 2024 025 [email or web address] [facility], [address], [place], [address], 09/17/2025 10:45:38 XR, foot, 3 or more view - RM 108 LEFT FOOT 2024 025 [email or web address] [facility], [address], [address], [place], [address], 08/13/2025 12:11:56 XR, foot, 3 or more view - rm# 104 3v lt foot wb 2024 025 [email or web address] [facility], [address], [address], [place], [address], 05/07/2025 12:23:14 CT, foot, w/o contrast - Left foot eval 1st and 2nd TMT fusions 2024 025 LAZARUS [facility] [place], [address] , [facility] [address], [place], [address], 05/09/2025 21:08:03 Medication Orders None recorded . Patient TargetsNo targets recorded. Patient Instructions Encounter Date Encounter Id Patient Instructions Last Modified By Organization Details Last Modified Time 08/13/2025 [id number] application of cast, short leg cast* - SLC LEFT NWB [place] FOR COLLAGEN DRESSING [email or web address] Not available 08/13/2025 12:11:56 Reason for Referral None Reported. Results Created Date Observation Date Name Description Value Unit Range Abnormal Flag Note LastModifiedBy Organization Detail LastModifiedTime 05/18/2005/18/2025 ALP+C A+TSH +PTH INTAC T intact PTH Commen t Inter preta tion Intac t PTH Calci um (pg/m L) (mg/d L) Maren l 15 - 65 8.6 - 10.2 Prima ry Hyper parat hyroi dism >65 >10.2 Secon shirlene Hyper parat hyroi dism >65 <10.2 Non-P cecile yroid Hyper calce juan jose <65 >10.2 Hypop cecile yroid ism <15 < 8.6 Non-P cecile yroid Hypoc alcem ia 15 - 65 < 8.6 Not Available [facility] ([facility]) [address] [place], [address], 05/24/2025 18:17:47 05/18/20 25 05/19/2025 ALP+C A+TSH +PTH INTAC T calcium 9.6 mg/dL 8.7-10 .3 normal Not Available [facility] ([facility]) [address] [place], [address], 05/24/2025 18:17:47 05/18/20 25 05/19/2025 ALP+C A+TSH +PTH INTAC T PTH, intact 57 pg/mL 15-65 normal Not Available [facility] ([facility]) [address] [place], [address], 05/24/2025 18:17:47 05/18/20 25 05/19/2025 ALP+C A+TSH +PTH INTAC T alkaline phosphatase 68 IU/L 44-121 normal Not Available [facility] ([facility]) [address] [facility], [place], [address], 05/24/2025 18:17:47 05/18/20 25 05/19/2025 ALP+C A+TSH +PTH INTAC T TSH 1.030 uIU/m L 0.450- 4.500 normal Not Available [facility] ([facility]) [address] [facility], [place], [address], 05/24/2025 18:17:47 05/18/20 25 05/24/2025 25-HY DROXY VITAM IN D LCMS D2+D3 25-hydroxy, vitamin D 35 NG/mL Refer ence Range : All Ages: Targe t level s 30 - 100 Not Available [facility] [address] [place], [address], 05/24/2025 18:17:48 05/18/20 25 05/24/2025 25-HY DROXY VITAM IN D LCMS D2+D3 25-hydroxy, vitamin D-2 <1.0 NG/mL This test was devel oped and its perfo rmanc e gael cteri stics deter mined by [employer]. It has not been clear ed or appro maciej by the Food and Drug Admin istra tion. Not Available [facility] [address] [place], [address], 05/24/2025 18:17:48 05/18/20 25 05/24/2025 25-HY DROXY VITAM IN D LCMS D2+D3 25-hydroxy, vitamin D-3 34 NG/mL This test was devel oped and its perfo rmanc e gael cteri stics deter mined by [employer]. It has not been clear ed or appro maciej by the Food and Drug Admin istra tion. Not Available [facility] [address] [facility], [place], [address], 05/24/2025 18:17:48 05/18/20 25 05/19/2025 PHOSP HORUS phosphorus 3.7 mg/dL 3.0-4. 3 normal Not Available [facility] ([facility]) [address] [facility], [place], [address], 05/24/2025 18:17:48 05/18/20 25 05/19/2025 ALBUM IN albumin 4.3 g/dL 3.8-4. 9 normal Not Available [facility] ([facility]) [address] [facility], [place], [address], 05/24/2025 18:17:49 05/18/20 25 05/19/2025 CARBO N DIOXI DE, TOTAL carbon dioxide, total 21 mmol/ L 20-29 normal Not Available [facility] ([facility]) [address] [facility], [place], [address], 05/24/2025 18:17:50 05/03/20 25 05/03/2025 XR, foot, 3 or more view [email or web address]:/ [email or web address] ?Encry pted=s hAaTro YD8dLq bEUv6g %2BXZw aYqtaq 0bqfl% 2Fg9IQ a4ajBk vP9nXo QUaueC m3YtLR FvZlgJ JJ8mAn HZtai3 2j2012 AC0Kla HyBU6q iKiQtr MwF INTERFACE [facility] Office [address] [facility] Delia [facility] [address], [place], [address], 05/03/2025 10:09:25 05/03/20 25 05/03/2025 XR, foot, 3 or more view [email or web address]:/ [email or web address] ?Encry pted=s hAaTro YD8dLq bEUv6g %2BXZw aYqtaq 0bqfl% 2Fg9IQ a4ajBk vP9nXo QUaueC m3YtLR FvZlgJ JJ8mAn HZtai3 4g6264 AC0Kla HyBU6q iKiQtr MwF INTERFACE [facility] [address], [place], [address], 05/03/2025 10:09:27 05/09/20 25 05/07/2025 CT, foot, w/o contr ast No observ ation record ed. [email or web address] [facility] [place] [address] [facility] [address], [place], [address], 05/10/2025 07:28:27 08/13/20 25 08/13/2025 XR, foot, 3 or more view [email or web address]:/ [email or web address] ?Encry pted=s hAaTro YD8dLq bEUv6g %2BXZw aYqtaq 0bqfl% 2Fg9IQ a4ajBk vP9nXo QUaueC m3YtLR FvZlgJ JJ8mAn HZtai3 8r7795 AC0Klb HuMUKK kKiQtr MwF INTERFACE [facility] [address], [place], [address], 08/13/2025 10:24:25 08/13/20 25 08/13/2025 XR, foot, 3 or more view http:/ [email or web address] ?Encry pted=s hAaTro YD8dLq bEUv6g %2BXZw aYqtaq 0bqfl% 2Fg9IQ a4ajBk vP9nXo QUaueC m3YtLR FvZlgJ JJ8mAn HZtai3 4s6261 AC0Klb HuMUKK kKiQtr MwF INTERFACE [facility] [address], [place], [address], 08/13/2025 10:24:27 09/09/2009/09/2025 XR, foot, 3 or more view [email or web address]:/ [email or web address] ?Encry pted=s hAaTro YD8dLq bEUv6g %2BXZw aYqtaq 0bqfl% 2Fg9IQ a4ajBk vP9nXo QUaueC m3YtLR FvZlgJ JJ8mAn HZtai3 4v7169 AC0Klb XSDUqe hKiQtr MwF INTERFACE [facility] Office [address] [address], [place], [address], 09/09/2025 10:32:19 09/09/2009/09/2025 XR, foot, 3 or more view http:/ [email or web address] ?Encry pted=s hAaTro YD8dLq bEUv6g %2BXZw aYqtaq 0bqfl% 2Fg9IQ a4ajBk vP9nXo QUaueC m3YtLR FvZlgJ JJ8mAn HZtai3 1q3847 AC0Klb XSDUqe hKiQtr MwF INTERFACE [facility] [address] [address], [place], [address], 09/09/2025 10:32:21 Result Notes Documentation Provider Name and Address Organization Details Recorded Time Xr, Foot, 3 Or More View : [email or web address] Encrypted=iiAzNndAS0mEqmG Uv6g%2VUYmhNbmlp9xscb%2Fg 5KWl3lhYduS3yTvTXlgzPn2Vq PCDvCpgXFW4cIiPIjee54z392 7GV5MjmWkXL8bkWwGcnEeL Not Available [facility] 05/03/2025 10:09: 25 Xr, Foot, 3 Or More View : [email or web address] Encrypted=ssQzVbnAF4oSkwO Uv6g%9GREddHbtxi1ofoa%2Fg 6YKw4mkNkiC6yKmHDsbyTp9Df ACLfYwtJHD1jWbTGton28m331 3NQ5JulQeZB7xtWfSdbXlQ Not Available [facility] 05/03/2025 10:09: 28 Xr, Foot, 3 Or More View : [email or web address] Encrypted=tuPdQgtAL8yIjzV Uv6g%6CROraJqjhi1jsag%2Fg 6MSu4irEqnS2pDrFDixnEq0Er QTZsDbaWTU1cLkHPpyo05k427 5MT5XwwNgTASQpXnCvsFuF Not Available [facility] 08/13/2025 10:24: 26 Xr, Foot, 3 Or More View : [email or web address] Encrypted=xqMlIcjRB7eKhzD Uv6g%7HZLwiMdagu1kzkw%2Fg 2ANr2xdGrmQ6wKjHEazqGr9Wp EVQgEgcTPN5cTnUVzxu60m573 5DQ1KmxFrRIRHhFfMolOoL Not Available [facility] 08/13/2025 10:24: 28 Xr, Foot, 3 Or More View : [email or web address] Encrypted=iqMbOdyUF6iKlyF Uv6g%2KMBpoMvcfk6kreh%2Fg 4LZv8piPuoX1pNdQCszrRt7La WLQqYizJAI1eNsQEjmc63q012 7GB7FmyKBFSgokYzMmgZuA Not Available [facility] 09/09/2025 10:32: 20 Xr, Foot, 3 Or More View : [email or web address] Encrypted=ojRhLwkIY8jLghX Uv6g%3EYXruZveet0ozzg%2Fg 2ZPj3jeTmdD9cClFKsijHh2Wc QCLiUerJDA7iNoMOwsi07f831 2UN2HznNDAQxzeMkQerBeA Not Available [facility] 09/09/2025 10:32: 21 Problems Name Problem SNOMED Code Status Onset Date Resolution Date Notes Provider Name and Address Organization Details Recorded Time Localized, primary osteoarthr itis of the shoulder region 706726998 Active 2020 Status : 'A'; Not Available [facility] 4 10:55:09 Left metatarsus adductus 3182064544558 9103 Active 2024 Regine Bernal PA-C [address], [place], [address] , [facility] 5 05:31:17 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 Procedures Surgical History Date Name Laterality Status Provider Name and Address Organization Details Recorded Time 4 Cast_Short Leg_11+ completed [facility] 11/16/2024 13:50:13 4 Cast Removal completed [facility] 11/16/2024 13:48:54 Imaging Results None recorded. Procedure Notes None recorded. Medical Equipment None Reported. Allergies No known drug allergies Medications Name Sig Start Date Stop Date Status Note LastModified by Organization Details LastModified Time compounded medication Apply 1-3 grams(pum ps) to the affected area 3-4 times daily 06/10 completed Not Available Not Available Not Available Ecotrin 325 mg tablet,ente yi coated Take 1 tablet every day by oral route for 30 days. 2024 active Not Available Not Available Not Avai lable Tylenol Extra Strength 500 mg tablet Take 2 tablets every 8 hours by oral route for 15 days. 08/18 completed Not Available Not Available Not Available oxycodone 5 mg tablet Take 1 tablet every 4-6 hours by oral route as needed for 5 days. 08/08 completed Not Available Not Available Not Available [...] day by oral route for 30 days. 2024 active Not Available Not Available Not Avai lable Vitals Date Recorded Body height Body mass index (BMI) Body weight Provider Name and Address Organization Details Last Updated DateTime 05/03/2025 157.48 cm 34 kg/m2 14923.18 g Dorene Valenzuela [facility] 05/03/2025 10:02:46 Date Recorded Body height Body mass index (BMI) Body weight Provider Name and Address Organization Details Last Updated DateTime 05/17/2025 157.48 cm 34 kg/m2 98349.18 g NITISH AUGUST [facility] 05/17/2025 14:19:45 Date Recorded Body height Body mass index (BMI) Body weight Provider Name and Address Organization Details Last Updated DateTime 06/08/2025 157.48 cm 34 kg/m2 51286.18 g Linda mcnamara [facility] 06/08/2025 08:00:17 Date Recorded Body height Body mass index (BMI) Body weight Provider Name and Address Organization Details Last Updated DateTime 08/13/2025 157.48 cm 34 kg/m2 83168.18 g Machelle Harris [facility] 08/13/2025 10:15:35 Date Recorded Body height Body mass index (BMI) Body weight Provider Name and Address Organization Details Last Updated DateTime 09/09/2025 157.48 cm 34 kg/m2 42194.18 g KECIA Tomas [facility] 09/09/2025 10:19:55 Social History None recorded. 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 848630646 M19.272 Acquired c avus deformity of foot 53611831 M21.6X2 4461380 JAYLENE Braun [address] [place] [address] 11/05/2024 10:41:14 11/26/2024 17:40:16 Postoperative visit 434501317 Z48.89 [id number] MD Endy Boudreaux [address] [place] [address] 11/16/2024 13:19:34 11/16/2024 13:51:19 Surgical follow-up 885313827 Z48.89 [id number] [id number] MD AUSTIN Boudreaux - [facility] [address] [place] [address] 12/04/2024 09:48:12 12/16/2024 08:20:06 Pain in left foot 3833080736 79130 M79.672 551259 Postoperative visit 1838 49178 Z48.89 15861622 [id number] JAYLENE DasA - [facility] [address] [place] [address] 01/26/2025 10:09:23 02/08/2025 10:25:51 Pain in left foot 6815051635 63188 M79.672 294648 Left metat arsus adductus 3951297031 9571715 Q66.222 3348437741 4646866 JAYLENE Das [facility] [address] [place] [address] 05/03/2025 09:13:38 05/07/2025 12:23:14 Ankle pain 674827316 M25.572 93228057 Pain in left foot 061540 5368 96404 M79.672 421636 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 fusion or arthrodesis 486091215 M96.0 596456 Left metat arsus adductus 7819798888 8593366 Q66.222 6226571170 2127232 JAYLENE DasA [facility] [address] [place] [address] 05/17/2025 14:09:06 05/26/2025 10:52:30 Pseudarthrosis after fusion or arthrodesis 572083937 M96.0 391700 Disorder o f joint of ankle and/or foot 454007067 M12.171 [id number] MD AUSTIN Boudreaux - [facility] [address] [place] [address] 06/08/2025 07:54:09 06/17/2025 12:53:17 Pseudarthrosis after fusion or arthrodesis 156372559 M96.0 055318 Follow-up orthopedic assessment 524496716 Z47.89 60757692 [id number] JAYLENE Das [address] [place] [address] 08/13/2025 09:54:55 08/23/2025 10:38:08 Pseudarthrosis after fusion or arthrodesis 757466232 M96.0 147541 [id number] MD AUSTIN Boudreaux [address] [place] [address] 09/09/2025 10:11:57 09/17/2025 10:45:38 Pain in left foot 0091685710 09932 M79.672 243132 Postoperative visit 1836 22743 Z48.89 [id number] Health Concerns Section Related Observation LastModified by Organization Detai ls LastModified Time None Recorded Concern Status LastModified by Organization Details LastModified Time None Recorded Advance Directives Directive None Recorded Payers Insurance Date Sequence Insurance Name Policy Number Policy Acuna Covered Member ID Acuna Member ID Guarantor Name 09/06/2025 NORIDIAN - SPECIALITY CLAIMS (MEDICARE [facility] A) Delia R Denny [id number] Delia R Denny 09/08/2025 1 MEDICARE B-UT: [facility] Delia R Denny [id number] Delia R Denny Notes Date Note Type Note Provider Name and Address Organization Details Recorded Time 05/03/2025 text/html I am seeing this patient [...] office immediately. Regine Bernal PA-C [address], [place], [address], [facility] [place] 05/04/2025 05:31:36 05/17/2025 text/html I am seeing this patient under the supervision of Dr. Alfonso, who was available but who did not see the patient. HPI: Patient is a 59 year old female presenting today about 7 months status post left first and second realignment arthrodeses and calcaneal bone graft augmentation. She was last seen by myself few weeks ago and had pretty consistent pain and swelling in the foot. Over the last week or so it has gotten much worse. She has difficulty with shoe wear. Has been wearing a postop sandal. Very frustrated with her pain. She is also complaining of nerve type pain in the foot radiating to the toes. On her last x-ray was concerned about nonunion and she was sent for a CT scan to evaluate her 1st and 2nd TMT joints. She has rheumatoid arthritis and is on methotrexate. I submitted for a bone stimulator at her last visit however insurance will not approve this until she is 9 months out from surgery. Denies any interval trauma. Denies any fevers, [...] touch in the left lower extremity. RADIOLOGY: CT scan of the left foot independently reviewed today demonstrating broken hardware at the medial and middle cuneiforms with nonunions of the 1st and 2nd TMT joints. IMPRESSION: About 7 months status post left midfoot realignment arthrodesis, nonunions PLAN: Discussed the findings and situation with the patient today. Had a long discussion with the patient regarding her symptoms and diagnosis. Understandably she is very frustrated by this. I am unsure of her rheumatoid arthritis and use of methotrexate is partially because of her nonunions. I have ordered metabolic bone labs. She will continue with her postop sandal as needed. I offered a follow-up with Dr. Alfonso for further discussion of potential revision fusions. Call with questions or concerns. Regine Bernal PA-C [address], [place], [address], [facility] [place] 05/18/2025 14:43:27 06/08/2025 text/html ROS as noted in the HPI Ramy Alfonso MD [address] [address], [place], [address], [facility] 07/27/2025 11:38:27 08/13/2025 text/html I am seeing this patient under the supervision of Dr. Alfonso, who was available but who did not see the patient. HPI: Patient is a 60-year-old female presenting today about 2 weeks status post left 1st and 2nd TMT joint revision fusion, hardware removal. Date of surgery 07/28/2025. She has been doing fairly well since surgery. Has been nonweightbearing in a post operative splint. Compliant with nonweightbearing status. Taking aspirin for DVT prophylaxis. Denies any interval trauma. Denies any fevers, chills, or paresthesias. PFMSH, Meds and ROS reviewed, updated and signed by me, and is located in the patient's chart. PHYSICAL EXAMINATION: The patient is well appearing and in no apparent distress. Alert and oriented x 3. Examination of her left foot reveals well healing surgical incisions with sutures in place. Moderate edema noted about the foot with no evidence of erythema or warmth. Calf soft, nontender. Sensation intact to light touch in the left lower extremity. RADIOLOGY: X-rays were ordered, obtained, reviewed today in our office. 3 views of the left foot demonstrate well aligned midfoot with hardware in good position. IMPRESSION: 2 weeks status post surgery as above PLAN: Discussed the findings and situation with the patient today. She seems be doing fairly well overall. Sutures were removed and Steri-Strips applied. She was placed into a short leg nonweightbearing cast today. We discussed nonweightbearing for a total of 6 to 8 weeks postoperatively. She will use a bone stimulator. We we will plan to clamshell her cast and use collagen dressings which was explained to the patient today. Follow-up in 4 weeks. Call with questions or concerns. Regine Bernal PA-C [address], [place], [address], [facility] 08/26/2025 20:50:48 09/09/2025 text/html ROS as noted in the HPI Ramy Alfonso MD [address], [place], [address], [facility] 09/09/2025 11:37:17 OBGyn Episode No OBEpisode recorded.
--- OUTSIDE RECORDS SUMMARY | 2025-10-26 11:58 | XMS_ITS | Continuity of Care Document ---
Author Organization [place] - [facility] [place] [facility] 1st Floor Address [address] [place] [address] Care Team Providers Care Client Support Associate Name Role Phone NENA RODRIGUEZ Primary Care Provider Assessment No assessment recorded. Plan of Treatment Reminders Order Date Submit [...] RM 108 LEFT FOOT 2024 025 [email or web address] [facility], [address], [address], [place], [address], 08/13/2025 12:11:56 Medication Orders None recorded . Patient TargetsNo targets recorded. Patient Instructions Encounter Date Encounter Id Patient Instructions Last Modified By Organization Details Last Modified Time 08/13/2025 [id number] application of cast, short leg cast* - SLC LEFT NWB [place] FOR COLLAGEN DRESSING [email or web address] Not available 08/13/2025 12:11:56 Reason for Referral None Reported. Results Created Date Observation Date Name Description Value Unit Range Abnormal Flag Note LastModifiedBy Organization Detail LastModifiedTime 08/13/2008/13/2025 XR, foot, 3 or more view [email or web address]:/ [email or web address] ?Encry pted=s hAaTro YD8dLq bEUv6g %2BXZw aYqtaq 0bqfl% 2Fg9IQ a4ajBk vP9nXo QUaueC m3YtLR FvZlgJ JJ8mAn HZtai3 8f7888 AC0Klb HuMUKK kKiQtr MwF INTERFACE [facility] [address] [address], [place], [address], 08/13/2025 10:24:25 08/13/20 25 08/13/2025 XR, foot, 3 or more view [email or web address]:/ [email or web address] ?Encry pted=s hAaTro YD8dLq bEUv6g %2BXZw aYqtaq 0bqfl% 2Fg9IQ a4ajBk vP9nXo QUaueC m3YtLR FvZlgJ JJ8mAn HZtai3 2x5931 AC0Klb HuMUKK kKiQtr MwF INTERFACE [address], [address], 08/13/2025 10:24:27 09/09/20 25 09/09/2025 XR, foot, 3 or more view [email or web address]:/ [email or web address] ?Encry pted=s hAaTro YD8dLq bEUv6g %2BXZw aYqtaq 0bqfl% 2Fg9IQ a4ajBk vP9nXo QUaueC m3YtLR FvZlg JJ8mAn HZtai3 5r2122 AC0Klb XSDUqe hKiQtr MwF INTERFACE [facility] Office [address] [address], [place], [address], 09/09/2025 10:32:19 09/09/20 25 09/09/2025 XR, foot, 3 or more view [email or web address]:/ [email or web address] ?Encry pted=s hAaTro YD8dLq bEUv6g %2BXZw aYqtaq 0bqfl% 2Fg9IQ a4ajBk vP9nXo QUaueC m3YtLR FvZlgJ JJ8mAn HZtai3 0e4317 AC0Klb XSDUqe hKiQtr MwF INTERFACE [facility] [address], [place], [address], 09/09/2025 10:32:21 Result Notes Documentation Provider Name and Address Organization Details Recorded Time Xr, Foot, 3 Or More View : [email or web address] Encrypted=luNmYpaOQ7sFizG Uv6g%2AXBbgOlxiz0rbkc%2Fg 7TKa3ayIipB1tLgEXjyxAk6Jo TOOlRnsIVN6rRkRKaty20g073 6WJ6MfcDkCCBOfYfYbfKrV Not Available [facility] 08/13/2025 10:24: 26 Xr, Foot, 3 Or More View : [email or web address] Encrypted=puUjWcoVE0hDycH Uv6g%3RUDauYbijr5mewu%2Fg 5NQe8vqQqbM5qCePZzcdVv2Ct BOUfLjsYES3cJuGYbgt42q827 4HJ2DzkYuQVVIaNcIshIkT Not Available [facility] 08/13/2025 10:24: 28 Problems Name Problem SNOMED Code Status Onset Date Resolution Date Notes Provider Name and Address Organization Details Recorded Time Localized, primary osteoarthr itis of the shoulder region 148504338 Active 2020 Status : 'A'; Not Available [facility] 4 10:55:09 Left metatarsus adductus 1178430565862 9103 Active 2024 Regine Bernal PA-C [address], [place], [address] , 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 Procedures Surgical History Date Name Laterality Status Provider Name and Address Organization Details Recorded Time 4 Cast_Short Leg_11+ completed [facility] 11/16/2024 13:50:13 4 Cast Removal completed [facility] 11/16/2024 13:48:54 Imaging Results None recorded. Procedure [...] active Not Available Not Available Not [facility] Vitals Date Recorded Body height Body mass index (BMI) Body weight Provider Name and Address Organization Details Last Updated DateTime 08/13/2025 157.48 cm 34 kg/m2 60751.18 g Machelle Harris [place] - [facility] 08/13/2025 10:15:35 Social History None recorded. Functional Status None [...] ICD10 Code Diagnosis IMO Codes Diagnosis Note [id number] JAYLENE Das [facility] [address] [facility] [address] 08/13/2025 09:54:55 08/23/2025 10:38:08 Pseudarthrosis after fusion or arthrodesis 825324926 M96.0 [id number] Health Concerns Section Related Observation LastModified by Organization Detai ls LastModified Time None Recorded Concern Status LastModified by Organization Details LastModified Time None Recorded Payers Encounter Date Sequence Insurance Name Policy Number Policy Acuna Covered Member ID Acuna Member ID Guarantor Name 08/13/2025 1 MEDICARE B-[place]: [facility] [employer] Delia Baldwin [id number] Delia Baldwin Notes Date Note Type Note Provider Name and Address Organization Details Recorded Time 08/13/2025 text/html I am seeing this patient [...] questions or concerns. Regine Bernal PA-C [address] [facility] [address], [place], [address], [facility] 08/26/2025 20:50:48 OBGyn Episode No OBEpisode recorded.
--- OUTSIDE RECORDS SUMMARY | 2025-10-26 11:58 | XMS_ITS | Continuity of Care Document ---
Author Organization [facility] [place] [address]st Floor Address [address] [place] [address] Care Team Providers Care Planning Supervisor Name Role Phone NENA RODRIGUEZ Primary Care Provider [phone] Assessment Encounter Date Assessment Date Assessment LastModified by Organization Details LastModified Time 09/09/2025 09/09/2025 CHIEF COMPLAINT: Postop left foot [...] obtained and reviewed by me today at [facility], demonstrating interval healing of her first and [...] op 3V FOOT WB 2024 025 [email or web address] [facility] Office, [address] [facility] [address], [address], [place], [address], 09/17/2025 10:45:38 Medication Orders None recorded . Patient TargetsNo targets recorded. Patient InstructionsNo instructions recorded. Reason for Referral None Reported. Results Created Date Observation Date Name Description Value Unit Range Abnormal Flag Note LastModifiedBy Organization Detail LastModifiedTime 08/13/2008/13/2025 XR, foot, 3 or more view [email or web address]:/ [email or web address] ?Encry pted=s hAaTro YD8dLq bEUv6g %2BXZw aYqtaq 0bqfl% 2Fg9IQ a4ajBk vP9nXo QUaueC m3YtLR FvZlgJ JJ8mAn HZtai3 8m3948 AC0Klb HuMUKK kKiQtr MwF INTERFACE [facility] [address], [place], [address], 08/13/2025 10:24:25 08/13/20 25 08/13/2025 XR, foot, 3 or more view [email or web address] ?Encry pted=s hAaTro YD8dLq bEUv6g %2BXZw aYqtaq 0bqfl% 2Fg9IQ a4ajBk vP9nXo QUaueC m3YtLR FvZl JJ8Austin HZtai3 5o8448 AC0Klb HuMUKK kKiQtr MwF INTERFACE [facility] [address] [address], [place], [address], 08/13/2025 10:24:27 09/09/20 25 09/09/2025 XR, foot, 3 or more view [email or web address] ?Encry pted=s [place] YD8dLq bEUv6g %2BXZw aYqtaq 0bqfl% 2Fg9IQ a4ajBk vP9nXo QUaueC m3YtLR FvZl JJ8Austin HZtai3 0s6321 AC0Klb XSDUqe hKiQtr MwF INTERFACE [facility] Office [address] [address], [place], [address], 09/09/2025 10:32:19 09/09/20 25 09/09/2025 XR, foot, 3 or more view [email or web address]:/ [email or web address] ?Encry pted=s [place] YD8dLq bEUv6g %2BXZw aYqtaq 0bqfl% 2Fg9IQ a4ajBk vP9nXo QUaueC m3YtLR Zl [address] Streettai[address] [address] AC0Klb XSDUqe hKiQtr MwF INTERFACE [facility] [address], [address], 09/09/2025 10:32:21 Result Notes Documentation Provider Name and Address Organization Details Recorded Time Xr, Foot, 3 Or More View : [email or web address] Encrypted=dkZjBadQL2oDllA Uv6g%9YHDhdQlnls4qphz%2Fg 5EXi1cfAalK7xTlYIednZa5Xl ISZkGwjFSV2jWtVUiap75k115 1LS3JpzZAHJrjhBpJgfGpJ Not Available [facility] 09/09/2025 10:32: 20 Xr, Foot, 3 Or More View : [email or web address] Encrypted=weSdGrgDR1wMgcS Uv6g%0GAHduNtzli2oytf%2Fg 6XOr3foFyrF9aOxNMhuxYz6Re UUCeFyjVEW3lNcMPdks63q528 0IL8PkkDNVMypqAaVcwQqX Not Available [facility] 09/09/2025 10:32: 21 Problems Name Problem SNOMED Code Status Onset Date Resolution Date Notes Provider Name and Address Organization Details Recorded Time Localized, primary osteoarthr itis of the shoulder region 262646402 Active 2020 Status : 'A'; Not Available [facility] 4 10:55:09 Left metatarsus adductus 4117443604111 9103 Active 2024 Regine Bernal PA-C [address], [place], [address] , [facility] 5 05:31:17 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 Procedures Surgical History Date Name Laterality Status Provider Name and Address Organization Details Recorded Time 4 Cast_Short Leg_11+ completed ARLEY SCHWARTZ [facility] 11/16/2024 13:50:13 Cast Removal completed ARLEY EFREN [facility] [address] 11/16/2024 13:48:54 Imaging Results None recorded. Procedure [...] Updated DateTime 09/09/2025 157.48 cm 34 kg/m2 53743.18 g KECIA SILVANO Tomas [facility] [address] 09/09/2025 10:19:55 Social History None recorded. Functional Status None recorded. Mental Status None recorded. Family History Nothing Reported. Medical History Condition Response Arthritis Y Nerve Disorders Y Kidney/Bladder Problems Y Hypertension Y Gynecological HistoryNo gynecological history recorded. Obstetrics History GPAL:G 0 P 0 0 0 0 Past Encounters Encounter ID Performer Location Encounter Start Date Encounter Closed Date Diagnosis/Indication Diagnosis SNOMED-CT Code Diagnosis ICD10 Code Diagnosis IMO Codes Diagnosis Note [id number] JAYLNEE Das [address] [place] [address] 08/13/2025 09:54:55 08/23/2025 10:38:08 Pseudarthrosis after fusion or arthrodesis 276364043 M96.0 [id number] MD AUSTIN Boudreaux [address] [place] [address] 09/09/2025 10:11:57 09/17/2025 10:45:38 Pain in left foot 7430973801 32155 M79.672 000651 Postoperative visit 1836 54569 Z48.89 [id number] Health Concerns Section Related Observation LastModified by Organization Detai ls LastModified Time None Recorded Concern Status LastModified by Organization Details LastModified Time None Recorded Payers Encounter Date Sequence Insurance Name Policy Number Policy Acuna Covered Member ID Acuna Member ID Guarantor Name 09/09/2025 1 MEDICARE B-[place]: [employer] Delia Baldwin [id number] Delia Baldwin Notes Date Note Type Note Provider Name and Address Organization Details Recorded Time 09/09/2025 text/html ROS as noted in the HPI Ramy Alfonso MD [address], [place], [address], [facility] [place] [facility] 09/09/2025 11:37:17 OBGyn Episode No OBEpisode recorded.
== END 2025-10-26 11:06 | disposition home or self-care (01) ==
LOC: HO.RHES 10:27
PROVIDERS: Visit Provider Internal Medicine Rheumatology
DX: M05.79 Rheumatoid arthritis with rheumatoid factor of multiple sites without organ or systems involvement (principal); Z79.899 Other long term (current) drug therapy; M17.11 Unilateral primary osteoarthritis, right knee
CPT/HCPCS: 99214; G2211

== ENCOUNTER → 2025-10-26 10:26 | Outpatient (BNVA) | payer MEDICARE, SELFPAY | PROVIDERS: Visit Provider Internal Medicine Rheumatology | DX: M17.11 Unilateral primary osteoarthritis, right knee (principal); M05.79 Rheumatoid arthritis with rheumatoid factor of multiple sites without organ or systems involvement; Z79.899 Other long term (current) drug therapy; F10.10 Alcohol abuse, uncomplicated | CPT/HCPCS: 99212 ==